=== PATIENT | female | born 1970 | race Caucasian/White ===

== ENCOUNTER 2024-10-19 17:52 | Emergency (ER) | payer BC, SELFPAY ==
--- OUTSIDE RECORDS SUMMARY | 2024-08-29 12:15 | XMS_ITS | Encounter Summary ---
Author Organization [facility] Address [address] [place] [address]. [place] [address] Care Team Providers Care Mechanical Engineering Technologist Name Role Phone Kun Cueva MD Primary Care Provider [phone] Kun Cueva MD Unavailable [phone] Vonda Mendoza APRN PERSONAL LINES APPRAISER Unavaila ble Kun Cueva MD Unavailable [phone] Heena Mederos PERSONAL LINES APPRAISER Unavailable [phone] Albert Mix PharmD Unavailable [phone] Albert Mix PharmD Unavailable [phone] Hector Vicente DO Unavailable [phone] Reason for Visit * Rehab Therapy Physical Therapy (Routine: Next available opening) - Pending Review Specialty Diagnoses / Procedures Referred By Austyn t Referred To Contact Diagnoses Primary osteoarthritis of right hip Greater trochanteric pain syndrome [place] [address] [address], [address] [address] Phone: tel: fax: Referral ID Status Reason Start Date Expiration Date V isits Requested Visits Authorized [id number] Pending Review 07/18/2024 07/18/2025 1 1 Encounter Details Date Type Department Care Team (Latest Contact Info) Description 08/29/2024 12:15 PM CDT Therapy Visit [facility] [address] [facility] [address] [place] [phone] Annabel Go, PT [address] [facility] [address] [place] [address] Primary osteoarthritis of right hip; Greater trochanteric pain syndrome of right lower extremity Social History Tobacco Use Types Packs/Day Years Used Date Smoking Tobacco: Never Passive Smoke Exposure: Yes Smokeless Tobacco: Never Alcohol Use Standard Drinks/Week Comments Yes 0 (1 standard drink = 0.6 oz pur e alcohol) Socially Social Connection and Isolation Panel [NHANES] A nswer Date Recorded Frequency of Communication with Friends and Fami ly Not on file 07/20/2024 How often do you get together with friends or re latives? Once a week 07/20/2024 Attends Buddhist Services Not on file 07/20 Active Member of Clubs or Organizations Not on f ile 07/20/2024 Attends Club or Organization Meetings Not on gertrude e 07/20/2024 Marital Status Not on file 07/20/2024 AUDIT-C Answer Date Recorded Frequency of Alcohol Consumption 2-4 times a mon 09/25/2018 Average Number of Drinks 1 or 2 019 Frequency of Binge Drinking Not on file 08/2018 PHQ-2 Answer Date Recorded PHQ-2 Score 2 07/25/2024 [facility] - Occupational Stress Questionnaire Answer Date Recorded Do you feel stress - tense, restless, nervous, or anxious, or unable to sleep at night because your mind is troubled all the time - these days? Very much 07/20/2024 Exercise Vital Sign Answer Date Recorde d On average, how many days pe r week do you engage in moderate to strenuous exercise (like a brisk walk)? 3 days 07/20/2024 On average, how many minutes do you engage in exercise at this level? 10 min 07/20/2024 Adolescent Education Answer Date Record ed Getting School Help Needed Not on file 01/15 Food Insecurity Answer Date Recorded Within the past 12 months, d id you worry that your food would run out before you got money to buy more? No 07/20/2024 Within the past 12 months, d id the food you bought just not last and you didn t have money to get more? No 07/20/2024 Housing Stability Answer Date Recorded Do you have housing? ([place] is defined as stable permanent housing and does not include staying outside in a car, in a tent, in an abandoned building, in an overnight snf, or couch-surfing.) Yes 07/20/2024 Are you worried about losing your housing? No 07/20/2024 Financial Resource Strain Answer Date R ecorded Within the past 12 months, h ave you or your family members you live with been unable to get utilities (heat, electricity) when it was really needed? No 07/20/2024 Transportation Needs Answer Date Record ed Within the past 12 months, h as lack of transportation kept you from medical appointments, getting your medicines, non-medical meetings or appointments, work, or from getting things that you need? No 07/20/2024 Interpersonal Safety Answer Date Record ed Do you feel physically and e motionally safe where you currently live? Yes 08/26/2024 Within the past 12 months, h ave you been hit, slapped, kicked or otherwise physically hurt by someone? No 08/26/2024 Within the past 12 months, h ave you been humiliated or emotionally abused in other ways by your partner or ex-partner? No 08/26/2024 Comments No Sex and Gender Information Value Date Recorded Sex Assigned at Female 05/26/2019 4:02 PM TERRITORY ACCOUNT MANAGER Legal Sex Female 5:12 AM TERRITORY ACCOUNT MANAGER Gender Identity Female 05/26/2019 4:02 PM TERRITORY ACCOUNT MANAGER Sexual Orientation Straight 05/26/2019 4: 02 PM TERRITORY ACCOUNT MANAGER documented as of this encounter Progress Notes * Annabel Go, PT - 10/07/2024 10:19 AM CDT DISCHARGE Reason for Discharge: pt has not been in clinic in over 30 days so is discharged from caseload Equipment Issued: Discharge Plan: Patient to continue home program. Referring Provider: Hector Vicente 08/29/24 0500 Appointment Info Signing clinician's name / credentials Annabel Go, PT Visits Used 1 Medical Diagnosis R Hip OA PT Tx Diagnosis R Hip OA Progress Note/Certification Onset of illness/injury or Date of Surgery 07/18/24 (date of referral) Therapy Frequency 1x/week Predicted Duration 90 days PT Goal 1 Goal Identifier HEP Goal Description Pt will demonstrate independence with their HEP in order to improve self management of condition Target Date 10/13/24 PT Goal 2 Goal Identifier stairs Goal Description Pt will be able to ambulate up stairs with a step through pattern and less reported pain of 1-2/10 4 out of 5 tries Target Date 11/26/24 PT Goal 3 Goal Identifier walking Goal Description Pt will be able to take first steps after sitting with less pain 3 out of 5 times per day Target Date 11/26/24 Subjective Report Subjective Report see eval Objective Measure 1 Objective Measure HIP ADL 50% on eval Details HIP HOS: 6 on eval Treatment Interventions (PT) Interventions Therapeutic Procedure/Exercise Therapeutic Procedure/Exercise Therapeutic Procedures: strength, endurance, ROM, flexibility minutes (63994) 24 Ther Proc 1 - Details stretches: sitting for work: piriformis and hip externla rotation holding 30 seconds X 1-3 reps Ther Proc 2 supine: piriformis above and below 90, supine quadratus lumborum holding all 30 secondsX 1-2 on R Patient Response/Progress pt is in agreement with POC Eval/Assessments PT Eval, Moderate Complexity Minutes ([id number]) 19 Education Learner/Method Patient Plan Plan for next session review stretches prn, hip/glute/core strengthening Total Session Time Timed Code Treatment Minutes 24 Total Treatment Time (sum of timed and untimed services) 43 * Annabel Go PT - 08/29/2024 12:15 PM CDT PHYSICAL THERAPY EVALUATION Type of Visit: Evaluation Fall Risk Screen: Have you fallen 2 or more times in the past year?: No Have you fallen and had an injury in the past year?: No Subjective Presenting condition or subjective complaint: Pt has right hip pain. She has had neck and back issues for several years. In 2022 she slipped on the ice and everything was much worse in pain levels. She went to a different pain doctor who did an MRI in which the OA was noted. The pain is more intense the past many months. Pain is constant and will vary thorughout the day. Prlonged positions of sitting and standing, getting out of cahirs and taking first couple steps, up stairs and toward the endof the day will increase symptoms. Pain is described as sharp, stabbing, ache. Switching positions frequently and laying in recliner will decrease symtpoms. Date of onset: 07/18/24 (date of referral) Relevant medical history: Depression; DVT (blood clot); Incontinence; Menopause; Mental Illness; Migraines or headaches; Neck injury; Pain at night or rest; Severe headaches Dates & types of surgery: Prior diagnostic imaging/testing results: MRI Prior therapy history for the same diagnosis, illness or injury: No Prior Level of Function Transfers: Ambulation: ADL: IADL: Living Environment Social support: With a significant other or spouse Type of home: House Stairs to enter the home: Yes 3 Is there a railing: No Ramp: No Stairs inside the home: Yes 12 Is there a railing: Yes Help at home: None Equipment owned: Employment: Yes sits for job currently, 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 Hobbies/Interests: Patient goals for therapy: Pain assessment: Objective HIP EVALUATION PAIN: Pain Level at Rest: 3/10 Pain Level with Use: 9/10 INTEGUMENTARY (edema, incisions): POSTURE: WFL GAIT: Weightbearing Status: Assistive Device(s): Gait Deviations: may progress to antalgic the further she walks BALANCE/PROPRIOCEPTION: able to stand on one foot 10+ seconds B with instability noted R>L, + Trendelenberg on R WEIGHTBEARING ALIGNMENT: NON-WEIGHTBEARING ALIGNMENT: ROM: Hip ROM(??) AROM in degrees Left Right Hip Flexion (0-120??) Hip Abduction (0-45??) Hip External Rotation (0-50??) Hip Internal Rotation (0-40??) Hip Extension (0-15??) PROM in degrees Left Right Hip Flexion (0-120??) WFL Pain at 100 degrees, WFL Hip Abduction (0-45??) Hip External Rotation (0-50??) WNL WNL Hip Internal Rotation (0-40??) WNL WNL Hip Extension (0-15??) WNL WNL STRENGTH: /5 Left Right Hip Flexion 5 5- Hip Extension 5- Glut Max 4+ Hip Abduction 5 5 Hip Adduction 5- 5- Hip External Rotation 5- 4+ Hip Internal Rotation 5- 5- Knee Extension 5 5 Knee flexion 5 5 LE FLEXIBILITY: WNL SPECIAL TESTS: OA Left (+/-) Right (+/-) Hip Scour + Test Cluster -Hip pain -Hip IR <15 -Hip Flex <115 + - + Test Cluster -Painful Hip IR ->50 years old -Morning Stiffness <60 min + + - Misc. Left (+/-) Right (+/-) Juliet's Wesley's Trendelenburg + SIJ Left (+/-) Right (+/-) SIJ Compression - SIJ Distraction - POSH Test Sacral Thrust Intra Articular Left (+/-) Right (+/-) NOE - FADIR + Passive Supine Rotation Test [facility] Test (SLR Against Resistance) DEXRIT DIRI Posterior Rim Impingement Lateral Rim Impingement Other FUNCTIONAL TESTS: PALPATION: pain over R psoas, all tissues surrounding greater trochanter, lower 1/3 of hip adductor, upper 1/2 of ITB, glutes and piriformis JOINT MOBILITY: Assessment & Plan CLINICAL IMPRESSIONS Medical Diagnosis: R Hip OA Treatment Diagnosis: R Hip OA Impression/Assessment: Patient is a 54 year old female with OA R hip complaints. The following significant findings have been identified: Pain, Decreased ROM/flexibility, Decreased strength, Impairedgait, Impaired muscle performance, and Decreased activity tolerance. These impairments interfere with their ability to perform prolonged positions, first couple steps after sitting, up stairs, more toward end of day as compared to previous level of function. Clinical Decision Making (Complexity): Clinical Presentation: Stable/Uncomplicated Clinical Presentation Rationale: based on medical and personal factors listed in PT evaluation Clinical Decision Making (Complexity): Moderate complexity PLAN OF CARE Treatment Interventions: Interventions: Gait Training, Manual Therapy, Neuromuscular Re-education, Therapeutic Activity, Therapeutic Exercise, Self-Care/Home Management Gasoline Plant Operator Goals PT Goal 1 Goal Identifier: HEP Goal Description: Pt will demonstrate independence with their HEP in order to improve self management of condition Target Date: 10/13/24 PT Goal 2 Goal Identifier: stairs Goal Description: Pt will be able to ambulate up stairs with a step through pattern and less reported pain of 1-2/10 4 out of 5 tries Target Date: 11/26/24 PT Goal 3 Goal Identifier: walking Goal Description: Pt will be able to take first steps after sitting with less pain 3 out of 5 timesper day Target Date: 11/26/24 Frequency of Treatment: 1x/week Duration of Treatment: 90 days Recommended Referrals to Other Professionals: Education Assessment: Learner/Method: Patient Risks and benefits of evaluation/treatment have been explained. Patient/Family/caregiver agrees with Plan of Care. Evaluation Time: PT Josue Trinidad Minutes ([id number]): 19 Signing Clinician: Annabel Go PT Cosigned by Hector Vicente DO at 08/29/2024 1:05 PM CDT Associated attestation - Hector Vicente DO - 08/29/2024 1:05 PM CDT Physician Attestation I agree with the information in this note. Hector Vicente DO documented in this encounter Plan of Treatment Upcoming Encounters Date Type Department Care Team (Late st Contact Info) Description 11/20/2024 3:00 PM CDT Virtual Visit [facility] [address] [phone] Harvey Corrales MD [address] [place] [address] 07/27/2025 3:10 PM CDT Office Visit [facility] [address] [place] [address] Kun Cueva MD [address] [place], [place] [id number] documented as of this encounter Visit Diagnoses Diagnosis Primary osteoarthritis of right hip Primary localized osteoarthrosis, pelvic region and thigh Greater trochanteric pain syndrome of right lower extremity documented in this encounter Additional Health Concerns Assessment Noted Time PHQ-9 Depression Total Score: 5 07/26/19 25 8:44 AM CDT documented as of this encounter Care Teams Mechanical Engineering Technologist Relationship Specialty Start Date End Date Kun Cueva MD [address] [place] [address] PCP - General Family Medicine 11/17/20 Kun Cueva MD [address] [place] [address] Assigned PCP 11/21/20 Vonda Mendoza APRN PERSONAL LINES APPRAISER [address] [place], [place] [id number], [place] [address] Nurse Practitioner Neurology 07/27/21 Kun Cueva MD [address] [place] [address] Referring Physician Family Medicine 07/27/21 Heena Mederos CNP [address] [place] [address] JULIANA MCGEE [address] Assigned Neuroscience Provider 05/17/23 Albert Mix, DejaD [address] [address] Pharmacist Pharmacist 07/07/24 Albert Mix, DejaD [address] [address] Assigned MTM Pharmacist 07/13/24 [place] [address] [address], [address] [address] Assigned Musculoskeletal Provider 08/13/24 documented as of this encounter
--- OUTSIDE RECORDS SUMMARY | 2024-09-10 15:30 | XMS_ITS | Encounter Summary ---
Author Organization [facility] Address [address] [place], [place] [address]. [place] [address] Care Team Providers Care Project Lead Name Role Phone Kun Cueva MD Primary Care Provider Kun Cueva MD Unavailable [phone] Vonda Mendoza APRN TOOL SMITH Unavaila ble Kun Cueva MD Unavailable [phone] Heena Mederos TOOL SMITH Unavailable [phone] Albert Mix PharmD Unavailable [phone] Albert Mix PharmD Unavailable [phone] Hector Vicente DO Unavailable [phone] Reason for Visit * Reason Comments Pain Encounter Details Date Type Department Care Team (Latest Contact Info) Description 09/10/2024 3:30 PM CDT Office Visit [facility] [address] [facility] [address] [place] [phone] Kun Cueva MD [address] [place], [place] [phone] Hossein Wilder MD [address] [place], [place] [id number] Right lumbar radiculopathy Social History Tobacco Use Types Packs/Day Years Used Date Smoking Tobacco: Never Passive Smoke Exposure: Yes Smokeless Tobacco: Never Tobacco Cessation:Counseling Given: Not Answered Alcohol Use Standard Drinks/Week Comments Yes 0 (1 standard drink = 0.6 oz pur e alcohol) Socially Social Connection and Isolation Panel [NHANES] A nswer Date Recorded Frequency of Communication with Friends and Fami ly Not on file 07/20/2024 How often do you get together with friends or re latives? Once a week 07/20/2024 Attends Congregation Services Not on file 07/20 Active Member of Clubs or Organizations Not on f ile 07/20/2024 Attends Club or Organization Meetings Not on gertrude e 07/20/2024 Marital Status Not on file 07/20/2024 AUDIT-C Answer Date Recorded Frequency of Alcohol Consumption 2-4 times a sun09/25/2018 Average Number of Drinks 1 or 2 019 Frequency of Binge Drinking Not on file 08/2018 PHQ-2 Answer Date Recorded PHQ-2 Score 2 07/25/2024 [facility] - Occupational Stress [...] Answer Date Recorded Do you have housing? (Housin g is defined as stable permanent housing and does not include staying outside in a car, in a tent, in an abandoned building, in an overnight fci, or couch-surfing.) Yes 07/20/2024 Are you worried [...] Sex Assigned at Female 05/26/2019 4:02 PM SECURITY PROGRAM MANAGER Legal Sex Female 5:12 AM SECURITY PROGRAM MANAGER Gender Identity Female 05/26/2019 4:02 PM SECURITY PROGRAM MANAGER Sexual Orientation Straight 05/26/2019 4: 02 PM SECURITY PROGRAM MANAGER documented as of this encounter Last Filed Vital Signs Vital Sign Reading Time Taken Comments Blood Pressure 128/74 09/10/2024 3:13 PM CDT Pulse 62 09/10/2024 3:13 PM CDT Temperature - - Respiratory Rate - - Oxygen Saturation 100% 09/10/2024 3:13 PM CDT Inhaled Oxygen Concentration - - Weight - - Height - - Body Mass Index - - documented in this encounter Patient Instructions * Patient Instructions* Hossein Wilder MD - 09/10/2024 3:30 PM CDT PLAN: Dr. Wilder to communicate with Dr. Beltran regarding radiofrequency ablation for your neck, whetheryou need updated MRIs, and to do the medial branch block sequence. Continue the Lyrica 50 mg 3 times a day, with your lamotrigine and duloxetine. Continue CBD and THC products as able. Follow-up return visit with Dr. Wilder in 4 to 5 months documented in this encounter Progress Notes * AntonioAnastasia velez - 09/10/2024 3:30 PM CDT Patient presents to the clinic today for a visit with HOSSEIN WILDER MD regarding Pain Management. Notes Anastasia Alvarez [facility] Clinical Copy Center Associate * Hossein Wilder MD - 09/10/2024 3:30 PM CDT [facility] Follow-up Date of visit: 09/10/2024 Chief complaint: Chief Complaint Patient presents with Pain Seen in follow-up from initial evaluation, history of cervical degenerative disease. Reviewing the record did see Dr. Beltran 07/03 having a right L4 transforaminal epidural steroid injection. Seen in sports medicine later in June, managing hip pain, greater trochanteric pain, placed on nonsteroidals, physical therapy Reviews today the lumbar steroid injection was quite helpful. Pleased with the results. Working with orthopedics now starting physical therapy for her hip. Would now like to address her neck pain. She will with a chiropractor. Reviews previously had radiofrequency ablation through Dr. Christina who had been at the [facility] then going to [facility] was about the CD 4 through 7 level. Found it was very helpful, starting to return. Would like to stay with this clinic. Last imaging several years ago. Wonders if she needs to go through the medial branch block process. Is taking Lyrica 50 mg 3 times a day which she thinks in combination with a lumbar steroid injection helping with radicular symptoms. Lamotrigine 200 mg daily helps with her headaches also anxiety and depression. Continue duloxetine 1 and 20 mg daily. Has used some THC and CBD products [id number] helps some with pain and sleep. Medications: Current Outpatient Medications Medication Sig Dispense Refill acetaminophen (TYLENOL) 325 MG tablet Take 650 mg by mouth every 4 hours as needed. aspirin (ASA) 325 MG EC tablet Take 325 mg by mouth daily calcium acetate (PHOSLO) 667 MG CAPS capsule Take 667 mg by mouth 3 times daily (with meals). DULoxetine (CYMBALTA) 60 MG capsule Take 2 capsules (120 mg) by mouth daily. 180 capsule 2 escitalopram (LEXAPRO) 10 MG tablet Take 1 tablet (10 mg) by mouth daily. 90 tablet 1 famotidine (PEPCID) 40 MG tablet Take 1 tablet (40 mg) by mouth 2 times daily. 180 tablet 0 hydrOXYzine (ATARAX) 25 MG tablet Take 1 tablet (25 mg) by mouth 3 times daily as needed for anxiety 30 tablet 2 lamoTRIgine (LAMICTAL) 100 MG tablet Take 1 tablet (100 mg) by mouth 2 times daily. 180 tablet 0 montelukast (SINGULAIR) 10 MG tablet Take 1 tablet (10 mg) by mouth at bedtime. 90 tablet 3 multivitamin w/minerals (MULTI-VITAMIN) tablet Take 1 tablet by mouth daily. pregabalin (LYRICA) 50 MG capsule Take 1 capsule (50 mg) by mouth 3 times daily. 90 capsule 2 propranolol ER (INDERAL LA) 80 MG 24 hr capsule Take 1 capsule by mouth once daily 90 capsule 0 tirzepatide-Weight Management (ZEPBOUND) 12.5 MG/0.5ML prefilled pen Inject 0.5 mLs (12.5 mg) subcutaneously every 7 days. 2 mL 1 traZODone (DESYREL) 100 MG tablet Take 1 tablet (100 mg) by mouth at bedtime. 90 tablet 3 Physical Exam: Blood pressure 128/74, pulse 62, SpO2 100%, not currently . Alert, clear sensorium, no respiratory distress, no pain behavior. Increased tone in trapezius, tender to palpation in her posterior paracervicals, occipital area. Pain worse with extension. Does not radiate in her arms. Good deltoid strength and hand strength. Negative Jhonatan's. No bowel or bladder changes. Assessment: History of cervical degenerative disease, previously had cervical radiofrequency ablation helping she feels for a few years. Would like to repeat the process. Did not have updated imaging maybe a few years old. Feels benefit from her lumbar radiculopathy with steroid injection and the Lyrica. Presently addressing hip pain through physical therapy. Plan: Will clarify with Dr. Beltran if need to update imaging and start with medial branch blocks versus going to radiofrequency ablation. She will continue to physical therapy for her hip. Continue the Lyrica lamotrigine and duloxetine. Will follow-up with me in several months. Total time 31 The longitudinal plan of care for the diagnosis(es)/condition(s) as documented were addressed during this visit. Due to the added complexity in care, I will continue to support Sarah in the subsequent management and with ongoing continuity of care. minutes spent on the date of encounter doing chartreview, history, and exam documentation and further activities as noted above. Hossein Wilder MD [facility] Pain documented in this encounter Plan of Treatment Upcoming Encounters Date Type Department Care Team (Late st Contact Info) Description 11/20/2024 3:00 PM CDT Virtual Visit [facility] [address] [phone] Harvey Corrales MD [address] [place] [address] 07/27/2025 3:10 PM CDT Office Visit [facility] [address] [place] [address] Kun Cueva MD [address] [place] [address] documented as of this encounter Visit Diagnoses Diagnosis Right lumbar radiculopathy Thoracic or lumbosacral neuritis or radiculitis, unspecified documented in this encounter Additional Health Concerns Assessment Noted Time PHQ-9 Depression Total Score: 5 07/26/19 25 8:44 AM CDT documented as of this encounter Care Teams Project Lead Relationship Specialty Start Date End Date Kun Cueva MD [address] [place] [address] PCP - General Family Medicine 11/17/20 Knu Cueva MD [address] [place] [address] Assigned PCP 11/21/20 Vonda Mendoza APRN TOOL SMITH [address] [id number] [place] [address] Nurse Practitioner Neurology 07/27/21 Kun Cueva MD [address] [facility] [address] [place] [address] Referring Physician Family Medicine 07/27/21 Heena Mederos, NIDHI [address] [place] [address] [place] [address] Assigned Neuroscience Provider 05/17/23 Albert Mix, PharmD [address] [address] Pharmacist Pharmacist 07/07/24 Albert Mix, DejaD [address] [address] Assigned MTM Pharmacist 07/13/24 [place] [address] [address], [address] [address] Assigned Musculoskeletal Provider 08/13/24 documented as of this encounter
[2024-10-19 17:59] VITALS: BP 122/83; PULSE 72; RESP 16; TEMP 36.8; O2SAT 99
--- NOTE | 2024-10-19 18:56 | CRLHL7_ITS ---
For Patients: As a result of the Cures Act, medical imaging exams and procedure reports are released immediately into your electronic medical record. You may view this report before your referring provider. If you have questions, please contact your health care provider. INDICATION: Fall, hit left eyebrow, has laceration. COMPARISON: None. TECHNIQUE: CT of the head without IV contrast. Coronal and sagittal reconstructions. FINDINGS: Brain: No intracranial hemorrhage, abnormal extra-axial fluid collection, or evidence of acute infarct. No mass effect or midline shift. Normal caliber ventricular system. Skull base and calvarium: The visualized paranasal sinuses and mastoid air cells are clear. The visualized orbits are grossly unremarkable. No acute fracture identified. Soft tissues: There is a focus of soft tissue gas in the left periorbital region likely related to laceration. No significant soft tissue swelling. IMPRESSION: 1. No acute intracranial findings. 2. Focus of soft tissue gas in the left periorbital region likely related to laceration. Please note that all CT scans at this facility use dose modulation, iterative reconstruction, and/or weight-based dosing when appropriate to reduce radiation dose to as low as reasonably achievable. Dictated by Louisa Lazo MD @ 10/19/2024 7:30:51 PM (Electronically Signed)
--- NOTE | 2024-10-19 18:57 | ED_ITS ---
HPI - General Adult General Chief complaint: Fall/Minor Trauma Stated complaint: Fell on Left Eyebrow Time Seen by Provider: 10/19/24 18:51 Source: patient Mode of arrival: ambulatory Limitations: no limitations History of Present Illness HPI narrative: 54-year-old female presenting today after a fall. She tripped over concrete and fell forward. She sustained a laceration over the left eyebrow. She did not lose consciousness. She denies any neck pain. She states that she has a very mild headache that she feels is coming on, she feels a fullness over the left eyebrow and eye area. She said that her vision was blurry on that side for a little bit of time, this has passed. She denies any other focal neurologic deficits, no word-finding difficulty. No ringing in her ears. No confusion. Patient is not on a blood thinner. This occurred approximately 1 hour ago. Patient has a history of blood clots, has factor 5 Leiden deficiency, takes daily aspirin. Related Data Allergies Allergy/AdvReac Type Severity Reaction Status Date / Time No Known Drug Allergies Allergy Verified 10/19/24 18:05 Review of Systems Status of ROS: Reports: 10 or more systems reviewed and unremarkable except as noted in History and below Exam Narrative: Exam Narrative: Well-nourished well-developed patient in no acute distress. Alert and oriented x3. Answers questions appropriately. Mood and affect are appropriate. Thoughts are goal oriented and rational. No tangential or magical thinking noted. Patient speaks in full sentences without needing to catch her breath. GCS is 15. Patient is speaking and breathing without difficulty. HEENT: Normocephalic. Pupils are equally round reactive to light. Extraocular muscles are intact. Conjunctivae are moist without any icterus noted. Moist mucous membranes. Posterior pharynx is normal. No trauma noted to the inside of the mouth. Neck is soft without pain. Full range of motion at the neck without pain. No tenderness to palpation of the cervical spine. Patient has a small laceration in the left eyebrow, the laceration penetrates into the dermis but does not penetrate through into the subcutaneous tissue. No gaping of the skin. Lungs: Patient takes deep breaths without any discomfort. Extremities: Bilateral lower extremities are without edema. Superficial abrasion of the left knee. Skin: Well perfused without any obvious rashes. Const: Vital Signs, click to edit/add: Vital Signs - 24 hr 10/19/24 17:59 Temperature 98.2 F Pulse Rate [Pulse Oximeter] 72 Respiratory Rate 16 Blood Pressure [Ri ght Upper Arm] 122/83 Pulse Oximetry 99 Oxygen Delivery Me thod Room Air Course Course ED Course: Given her headache, sensation of fullness across the face some blurry vision we did proceed with a head CT. This was unremarkable. Eyebrow was cleaned in the usual sterile manner and Dermabond was placed over the laceration. Knee was cleaned and dressed. Vital Signs Vital signs: Initial Vital Signs Temperature 98.2 F 10/19/24 17:59 Temperature Source Temporal Artery Scan 10/19/24 17:59 Pulse Rate 72 10/19/24 17:59 Pulse Rhythm Regular 10/19/24 17:59 Respiratory Rate 16 10/19/24 17:59 Blood Pressure 122/83 10/19/24 17:59 Blood Pressure Mean 96 10/19/24 17:59 Blood Pressure Position Sitting 10/19/24 17:59 Pulse Oximetry 99 10/19/24 17:59 Oxygen Delivery Method Room Air 10/19/24 17:59 Vital Signs Temperature 98.2 F 10/19/24 17:59 Pulse Rate 72 10/19/24 17:59 Respiratory Rate 16 10/19/24 17:59 Blood Pressure 122/83 10/19/24 17:59 Pulse Oximetry 99 10/19/24 17:59 Oxygen Delivery Method Room Air 10/19/24 17:59 Temperature 98.2 F 10/19/24 17:59 Pulse Rate 72 10/19/24 17:59 Respiratory Rate 16 10/19/24 17:59 Blood Pressure 122/83 10/19/24 17:59 Pulse Oximetry 99 10/19/24 17:59 Oxygen Delivery Method Room Air 10/19/24 17:59 Medical Decision Making MDM Narrative Medical decision making narrative: 54-year-old female status post fall. No evidence of intracranial pathology. Imaging Data CT scan - head: Attestation: I have reviewed the pertinent imaging results. Radiologist's impression: TECHNIQUE: CT of the head without IV contrast. Coronal and sagittal reconstructions. FINDINGS: Brain: No intracranial hemorrhage, abnormal extra-axial fluid collection, or evidence of acute infarct. No mass effect or midline shift. Normal caliber ventricular system. Skull base and calvarium: The visualized paranasal sinuses and mastoid air cells are clear. The visualized orbits are grossly unremarkable. No acute fracture identified. Soft tissues: There is a focus of soft tissue gas in the left periorbital region likely related to laceration. No significant soft tissue swelling. IMPRESSION: 1. No acute intracranial findings. 2. Focus of soft tissue gas in the left periorbital region likely related to laceration. Discharge Plan Discharge Clinical Impression: Laceration, Abrasion of knee Patient Disposition: Home, Self-Care Condition: Stable Instructions: Abrasion (ED) Additional Instructions: Keep laceration of eyebrow and wound of the knee clean and dry. You can shower like you normally would. The glue over the eyebrow will eventually fall off on its own, do not pull off. Watch for signs of infection which include redness that starts to spread, if this occurs see your doctor right away. Stand Alone Forms: [facility] [place] Info Instructions
--- OUTSIDE RECORDS SUMMARY | 2024-10-19 19:35 | XMS_ITS | Encounter Summary ---
Author Organization [facility] Address [address] [place] [address] [place] [address] Care Team Providers Care Scrub Nurse Name Role Phone Kun Cueva MD Primary Care Provider Kun Cueva MD Unavailable [phone] Vonda Mendoza APRN UTILITY WORKER FILM PROCESSING Unavaila ble Kun Cueva MD Unavailable [phone] Heena Mederos UTILITY WORKER FILM PROCESSING Unavailable [phone] Albert Mix PharmD Unavailable [phone] Albert Mix PharmD Unavailable [phone] Hector Vicente DO Unavailable [phone] Encounter Details Date Type Department Care Team (Late st Contact Info) Description 07/30/[address] [facility] [address] [place] [phone] Kun Cueva MD [address] [place] [address] Social History Tobacco Use Types Packs/Day Years [...] re latives? Once a week 07/20/2024 Attends Confucianist Services Not on file 07/20 Active Member [...] Answer Date Recorded PHQ-2 Score 2 07/25/2024 [facility] of Occupat ional Health - Occupational Stress [...] in an abandoned building, in an overnight fdc, or couch-surfing.) Yes 07/20/2024 Are you worried [...] motionally safe where you currently live? Yes 07/23/2023 Within the past 12 months, h ave you been hit, slapped, kicked or otherwise physically hurt by someone? No 07/23/2023 Within the past 12 months, h ave you been humiliated or emotionally abused in other ways by your partner or ex-partner? No 07/23/2023 Comments No Sex and Gender Information Value Date Recorded Sex Assigned at Female 05/26/2019 4:02 PM ORGANIZATIONAL EFFECTIVENESS CONSULTANT Legal Sex Female 5:12 AM ORGANIZATIONAL EFFECTIVENESS CONSULTANT Gender Identity Female 05/26/2019 4:02 PM ORGANIZATIONAL EFFECTIVENESS CONSULTANT Sexual Orientation Straight 05/26/2019 4: 02 PM ORGANIZATIONAL EFFECTIVENESS CONSULTANT documented as of this encounter Plan of Treatment Upcoming Encounters Date Type Department Care Team (Late st Contact Info) Description 11/20/2024 3:00 PM CDT Virtual Visit [facility] [address] [address] Harvey Corrales MD [address] [place] [address] 07/27/2025 3:10 PM CDT Office Visit [facility] [address] [place] [address] Kun Cueva MD [address] [place] [address] documented as of this encounter Visit Diagnoses Not on filedocumented in this encounter Additional Health Concerns Assessment Noted Time PHQ-9 Depression Total Score: 5 07/26/19 25 8:44 AM CDT documented as of this encounter Care Teams Scrub Nurse Relationship Specialty Start Date End Date Kun Cueva MD [address] [place] [address] PCP - General Family Medicine 11/17/20 uKn Cueva MD [address] [place] [address] Assigned PCP 11/21/20 Vonda Mendoza APRN UTILITY WORKER FILM PROCESSING [address] [place], [place] [id number], [place] [address] Nurse Practitioner Neurology 07/27/21 Kun Cueva MD [address] [facility] [address] [place] [address] Referring Physician Family Medicine 07/27/21 Heena Mederos CNP [address] [place] [address] [place] [id number] Assigned Neuroscience Provider 05/17/23 Albert Mix, PharmD [address] [address] Pharmacist Pharmacist 07/07/24 Albert Mix PharmD [address] [address] Assigned MTM Pharmacist 07/13/24 [place] [id number] ELFEGO PURCELL, [address] [address] Assigned Musculoskeletal Provider 08/13/24 documented as of this encounter
--- OUTSIDE RECORDS SUMMARY | 2024-10-19 19:35 | XMS_ITS | Encounter Summary ---
Author Organization [facility] Address [facility] [place] [address] Care Team Providers Care Gas Transfer Operator Name Role Phone Kun Cueva MD Primary Care Provider [phone] Kun Cueva MD Unavailable [phone] Vonda Mendoza APRN BUMPER MACHINE OPERATOR Unavaila ble Kun Cueva MD Unavailable [phone] Heena Mederos BUMPER MACHINE OPERATOR Unavailable [phone] Albert Mix PharmD Unavailable [phone] Albert Mix PharmD Unavailable [phone] Hector Vicente DO Unavailable [phone] Reason for Referral * Consultation (Routine: Next available opening) - Pending Review Specialty Diagnoses / Procedures Referred By Austyn t Referred To Contact Diagnoses Hip pain, left Chico Barreto MD [address] [place] [address] Phone: tel: fax: Referral ID Status Reason Start Date Expiration Date V isits Requested Visits Authorized [id number] Pending Review 07/15/2024 07/15/2025 1 1 Question Answer Consult Type: Hip Hip Location: Other Type: Per Protocol Scheduling Instructions: [facility] Orthopedic Mannequin Mold Maker will call you to coordinate your care as prescribed by your provider. A automobile rental representative will call you within 2 business days to help you schedule your appointment, or you may contact the Mannequin Mold Maker Nurses Assistant at: . Comments Please be aware that coverage of these services is subject to the terms and limitations of your health insurance plan. Call member services at your health plan with any benefit or coverage questions. [facility] Mannequin Mold Maker will call you to coordinate your care as prescribed by your provider. A automobile rental representative will call you within 2 business days to help you schedule your appointment, or you may contact the Mannequin Mold Maker Nurses Assistant at: . Encounter Details Date Type Department Care Team (Late st Contact Info) Description 07/14/2024 MyC Medical Advice [facility] [address] [facility] [address] [place] [address] Chico Barreto MD [address] [place] [address] Hip pain, left (Primary Dx) Social History Tobacco Use Types Packs/Day Years Used Date Smoking Tobacco: Never Passive Smoke Exposure: Yes Smokeless Tobacco: Never Alcohol Use Standard Drinks/Week Comments Yes 0 (1 standard drink = 0.6 oz pur e alcohol) socially Social Connection and Isolation Panel [NHANES] A nswer Date Recorded Frequency of Communication with Friends and Fami ly Not on file 07/17/2023 How often do you get together with friends or re latives? Once a week 07/17/2023 Attends Voodoo Services Not on file 07/16 Active Member of Clubs or Organizations Not on f ile 07/17/2023 Attends Club or Organization Meetings Not on gertrude e 07/17/2023 Marital Status Not on file 07/17/2023 AUDIT-C Answer Date Recorded Frequency of Alcohol Consumption 2-4 times a sun09/25/2018 Average Number of Drinks 1 or 2 019 Frequency of Binge Drinking Not on file 08/2018 PHQ-2 Answer Date Recorded PHQ-2 Score 2 05/09/2024 [facility] [place] of Occupat ional Health - Occupational Stress Questionnaire Answer Date Recorded Do you feel stress - tense, restless, nervous, or anxious, or unable to sleep at night because your mind is troubled all the time - these days? Very much 07/17/2023 Exercise Vital Sign Answer Date Recorde d On average, how many days pe r week do you engage in moderate to strenuous exercise (like a brisk walk)? 2 days 07/17/2023 On average, how many minutes do you engage in exercise at this level? 30 min 07/17/2023 Adolescent Education Answer Date Record ed Getting School Help Needed Not on file 01/15 Food Insecurity Answer Date Recorded Within the past 12 months, d id you worry that your food would run out before you got money to buy more? No 07/17/2023 Within the past 12 months, d id the food you bought just not last and you didn t have money to get more? No 07/17/2023 Housing Stability Answer Date Recorded Do you have housing? (Housin g is defined as stable permanent housing and does not include staying outside in a car, in a tent, in an abandoned building, in an overnight [place] [facility], or couch-surfing.) Yes 07/17/2023 Are you worried about losing your housing? No 07/17/2023 Financial Resource Strain Answer Date R ecorded Within the past 12 months, h ave you or your family members you live with been unable to get utilities (heat, electricity) when it was really needed? No 07/17/2023 Transportation Needs Answer Date Record ed Within the past 12 months, h as lack of transportation kept you from medical appointments, getting your medicines, non-medical meetings or appointments, work, or from getting things that you need? No 07/17/2023 Interpersonal Safety Answer Date Record ed Do [...] Sex Assigned at Female 05/26/2019 4:02 PM EXHIBIT TECHNICIAN Legal Sex Female 5:12 AM EXHIBIT TECHNICIAN Gender Identity Female 05/26/2019 4:02 PM EXHIBIT TECHNICIAN Sexual Orientation Straight 05/26/2019 4: 02 PM EXHIBIT TECHNICIAN documented as of this encounter Plan of Treatment Upcoming Encounters Date Type Department Care Team (Late st Contact Info) Description 11/20/2024 3:00 PM CDT Virtual Visit [facility] [place] [address] [facility] [address] [place] [address] Harvey Corrales MD [address] [facility] [address] [place] [address] 07/27/2025 3:10 PM CDT Office Visit [facility] [address] [place] [address] Kun Cueva MD [address] [place], [place] [id number] Scheduled Referrals Name Type Priority Associated Diagnoses Orde r Schedule Orthopedic Mannequin Mold Maker Referral Referral Routine: Next available opening Hip pain, left Expected: 07/15/2024 (Approximate), Expires: 07/15/2025 documented as of this encounter Visit Diagnoses Diagnosis Hip pain, left- Primary Pain in joint, pelvic region and thigh documented in this encounter Additional Health Concerns Assessment Noted Time PHQ-9 Depression Total Score: 7 05/09/19 25 7:52 AM EXHIBIT TECHNICIAN documented as of this encounter Care Teams Gas Transfer Operator Relationship Specialty Start Date End Date Kun Cueva MD [address] [place] [address] PCP - General Family Medicine 11/17/20 Kun Cueva MD [address] [place] [address] Assigned PCP 11/21/20 Vonda Mendoza APRN BUMPER MACHINE OPERATOR [address] [place] [address] [id number] [place] [address] Nurse Practitioner Neurology 07/27/21 Kun Cueva MD [address] [place] [address] Referring Physician Family Medicine 07/27/21 Heena Mederos CNP [address] [place] [address] [place] [address] Assigned Neuroscience Provider 05/17/23 Albert Mix, PharmD [address] [address] Pharmacist Pharmacist 07/07/24 Albert Mix, Will [address] [address] Assigned MTM Pharmacist 07/13/24 [place] [address] ELFEGO PURCELL, [address] [address] Assigned Musculoskeletal Provider 08/13/24 documented as of this encounter
--- OUTSIDE RECORDS SUMMARY | 2024-10-19 19:35 | XMS_ITS | Encounter Summary ---
Author Organization [facility] Address [address] [place], [place] [address]e. [place] [address] Care Team Providers Care Diamond Grader Name Role Phone Kun Cueva MD Primary Care Provider [phone] Kun Cueva MD Unavailable [phone] Vonda Mendoza APRN PAPIER MACHE MOLDER Unavaila ble Kun Cueva MD Unavailable [phone] Heena Mederos PAPIER MACHE MOLDER Unavailable [phone] Albert Mxi PharmD Unavailable [phone] Albert Mix PharmD Unavailable [phone] Hector Vicente DO Unavailable [phone] Encounter Details Date Type Department Care Team (Late st Contact Info) Description 08/04/2024 MyC Medical Advice [facility] [address] [place] [phone] Harvey Corrales MD [address] [place] [address] Social History Tobacco Use Types Packs/Day Years [...] re latives? Once a week 07/20/2024 Attends Anabaptism Services Not on file 07/20 Active Member [...] Answer Date Recorded PHQ-2 Score 2 07/25/2024 [facility] of Occupat ional Health - Occupational Stress [...] in an abandoned building, in an overnight jail, or couch-surfing.) Yes 07/20/2024 Are you worried [...] Sex Assigned at Female 05/26/2019 4:[address] CUTTER Legal Sex Female 5:[address]UTTER Gender Identity Female 05/26/2019 4:[address] CUTTER Sexual Orientation Straight 05/26/2019 4: [address] CUTTER documented as of this encounter Plan of Treatment Upcoming Encounters Date Type Department Care Team (Late st Contact Info) Description 11/20/2024 3:00 PM CDT Virtual Visit [facility] [address] [address] Harvey Corrales MD [address] [place] [address] 07/27/2025 3:10 PM CDT Office Visit [facility] [address] [place] [address] Kun Cueva MD [address] [place], [place] [id number] documented as of this encounter Visit Diagnoses Not on filedocumented in this encounter Additional Health Concerns Assessment Noted Time PHQ-9 Depression Total Score: 5 07/26/19 25 8:44 AM CDT documented as of this encounter Care Teams Diamond Grader Relationship Specialty Start Date End Date Kun Cueva MD [address] [place] [address] PCP - General Family Medicine 11/17/20 Kun Cueva MD [address] [place] [address] Assigned PCP 11/21/20 Vonda Mendoza APRN PAPIER MACHE MOLDER [address] [place], [place] [address] [address] Nurse Practitioner Neurology 07/27/21 Kun Cueva MD [address] [place] [address] Referring Physician Family Medicine 07/27/21 Heena Mederos CNP [address] [place] [address] [place] [address] Assigned Neuroscience Provider 05/17/23 Albert Mix, DejaD [address] [address] Pharmacist Pharmacist 07/07/24 Albert Mix, Will [address] [address] Assigned MTM Pharmacist 07/13/24 [place] [address] ELFEGO PURCELL, [address] [address] Assigned Musculoskeletal Provider 08/13/24 documented as of this encounter
--- OUTSIDE RECORDS SUMMARY | 2024-10-19 19:36 | XMS_ITS | Encounter Summary ---
Author Organization [facility] Address [address] [place], [place] [address]. [place] [address] Care Team Providers Care Sales And Operations Trainee Name Role Phone Kun Cueva MD Primary Care Provider [phone] Kun Cueva MD Unavailable [phone] Vonda Mendoza APRN TUFTING MACHINE OPERATOR SINGLE NEEDLE Unavaila ble Kun Cueva MD Unavailable [phone] Heena Mederos TUFTING MACHINE OPERATOR SINGLE NEEDLE Unavailable [phone] Albert Mix PharmD Unavailable [phone] Albert Mix PharmD Unavailable [phone] Hector Vicente DO Unavailable [phone] Encounter Details Date Type Department Care Team (Late st Contact Info) Description 08/04/2024 MyC Medical Advice [facility] [address] [place] [address] [place] [address] [facility] , [address] [address] Social History Tobacco Use Types Packs/Day Years [...] re latives? Once a week 07/20/2024 Attends Yazidism Services Not on file 07/20 Active Member [...] Answer Date Recorded PHQ-2 Score 2 07/25/2024 [facility] of Occupat ional Health - Occupational Stress [...] in an abandoned building, in an overnight long-term, or couch-surfing.) Yes 07/20/2024 Are you worried [...] Sex Assigned at Female 05/26/2019 4:02 PM DIRECTOR SPECIALTY Legal Sex Female 5:12 AM DIRECTOR SPECIALTY Gender Identity Female 05/26/2019 4:02 PM DIRECTOR SPECIALTY Sexual Orientation Straight 05/26/2019 4: 02 PM DIRECTOR SPECIALTY documented as of this encounter Plan of Treatment Upcoming Encounters Date Type Department Care Team (Late st Contact Info) Description 11/20/2024 3:00 PM CDT Virtual Visit [facility] [address] [phone] Harvey Corrales MD [address] [place] [address] 07/27/2025 3:10 PM CDT Office Visit [facility] [address] [place] [address] Kun Cueva MD [address] [place], [place] [phone] documented as of this encounter Visit Diagnoses Not on filedocumented in this encounter Additional Health Concerns Assessment Noted Time PHQ-9 Depression Total Score: 5 07/26/19 25 8:44 AM CDT documented as of this encounter Care Teams Sales And Operations Trainee Relationship Specialty Start Date End Date Kun Cueva MD [address] [place] [address] PCP - General Family Medicine 11/17/20 Kun Cueva MD [address] [place] [address] Assigned PCP 11/21/20 Vonda Mendoza APRN TUFTING MACHINE OPERATOR SINGLE NEEDLE [address] [place] [address] [address] Nurse Practitioner Neurology 07/27/21 Kun Cueva MD [address] [place] [address] Referring Physician Family Medicine 07/27/21 Heena Mederos CNP [address] [place] [address] [place] [address] Assigned Neuroscience Provider 05/17/23 Albert Mix, PharmD [address] [address] Pharmacist Pharmacist 07/07/24 Albert Mix, Will [address] [address] Assigned MTM Pharmacist 07/13/24 [place] [address] ELFEOG PURCELL, [address] [address] Assigned Musculoskeletal Provider 08/13/24 documented as of this encounter
--- OUTSIDE RECORDS SUMMARY | 2024-10-19 19:36 | XMS_ITS | Encounter Summary ---
Author Organization [facility] Address [address] [place], [place] [address]. [place] [address] Care Team Providers Care Branch Associate Teller Name Role Phone Kun Cueva MD Primary Care Provider [phone] Kun Cueva MD Unavailable [phone] Vonda Mendoza APRN ENTEROSTOMAL NURSE Unavaila ble Kun Cueva MD Unavailable [phone] Heena Mederos ENTEROSTOMAL NURSE Unavailable [phone] Albert Mix PharmD Unavailable [phone] Albert Mix PharmD Unavailable [phone] Hector Vicente DO Unavailable [phone] Reason for Visit * Reason Onset Date Comments Refill Request 09/17/2024 Encounter Details Date Type Department Care Team (Late st Contact Info) Description 09/17/2024 Ben Valdovinos [facility] [address] [place] [phone] Harvey Corrales MD [address] [place] [id number] Refill Request Social History Tobacco Use Types Packs/Day Years [...] re latives? Once a week 07/20/2024 Attends [employer] Not on file 07/20 Active Member [...] Answer Date Recorded PHQ-2 Score 2 07/25/2024 [facility] - Occupational [...] in an abandoned building, in an overnight half-way, or couch-surfing.) Yes 07/20/2024 Are you worried [...] Sex Assigned at Female 05/26/2019 4:02 PM ELECTRIC WELDER Legal Sex Female 5:12 AM ELECTRIC WELDER Gender Identity Female 05/26/2019 4:02 PM ELECTRIC WELDER Sexual Orientation Straight 05/26/2019 4: 02 PM ELECTRIC WELDER documented as of this encounter Plan of Treatment Upcoming Encounters Date Type Department Care Team (Late st Contact Info) Description 11/20/2024 3:00 PM CDT Virtual Visit [facility] [address] [phone] Harvey Corrales MD [address] [place] [address] 07/27/2025 3:10 PM CDT Office Visit [facility] [address] [place] [phone] Kun Cueva MD [address] [place], [place] [id number] documented as of this encounter Visit Diagnoses Diagnosis Dyspepsia Dyspepsia and other specified disorders of function of stomach documented in this encounter Additional Health Concerns Assessment Noted Time PHQ-9 Depression Total Score: 5 07/26/19 25 8:44 AM CDT documented as of this encounter Care Teams Branch Associate Teller Relationship Specialty Start Date End Date Kun Cueva MD [address] [place] [address] PCP - General Family Medicine 11/17/20 Kun Cueva MD [address] [place] [address] Assigned PCP 11/21/20 Vonda Mendoza APRN ENTEROSTOMAL NURSE [address] [place] [address] Nurse Practitioner Neurology 07/27/21 Kun Cueva MD [address] [place] [address] Referring Physician Family Medicine 07/27/21 Heena Mederos CNP [address] [place] [address] JULIANA MCGEE [address] Assigned Neuroscience Provider 05/17/23 Albert Mix, Will [address] [address] Pharmacist Pharmacist 07/07/24 Albert Mix PharmD [address] [address] Assigned MTM Pharmacist 07/13/24 [place] [address] ELFEGO PURCELL, [address] [address] Assigned Musculoskeletal Provider 08/13/24 documented as of this encounter
--- OUTSIDE RECORDS SUMMARY | 2024-10-19 19:36 | XMS_ITS | Clinical Summary ---
Author Organization [facility] Address [address] [place], [place] [address]. [place] [address] Care Team Providers Care Photovoltaic Installation Technician Name Role Phone Kun Cueva MD Primary Care Provider [phone] Kun Cueva MD Unavailable [phone] Vonda Mendoza APRN FISH CLEANER Unavaila ble Kun Cueva MD Unavailable [phone] Heena Mederos FISH CLEANER Unavailable [phone] Albert Mix PharmD Unavailable [phone] Albert Mix PharmD Unavailable [phone] Hector Vicente DO Unavailable [phone] Allergies No known active allergies Medications acetaminophen (TYLENOL) 325 MG tablet Take 650 mg by mouth every 4 hours as needed. Active aspirin (ASA) 325 MG EC tablet Take 325 mg by mouth daily 05/15/19 18 Active hydrOXYzine (ATARAX) 25 MG tabletIndication s:MICHEAL (generalized anxiety disorder) Take 1 tablet (25 mg) by mouth 3 times daily as needed for anxiety 30 tablet 2 07/28/19 23 Active traZODone (DESYREL) 100 MG tabletIndication s:Insomnia, unspecified type Take 1 tablet (100 mg) by mouth at bedtime. 90 tablet 3 01/17/20 24 Active multivitamin w/minerals (MULTI-VITAMIN) tablet Take 1 tablet by mouth daily. Active calcium acetate (PHOSLO) 667 MG CAPS capsule Take 667 mg by mouth 3 times daily (with meals). Active escitalopram (LEXAPRO) 10 MG tabletIndication s:MICHEAL (generalized anxiety disorder),Modera te episode of recurrent major depressive disorder (H) Take 1 tablet (10 mg) by mouth daily. 90 tablet 1 06/28/19 25 Active DULoxetine (CYMBALTA) 60 MG capsuleIndicatio ns:MICHEAL (generalized anxiety disorder) Take 2 capsules (120 mg) by mouth daily. 180 capsule 2 07/03/19 25 Active pregabalin (LYRICA) 50 MG capsuleIndicatio ns:Right lumbar radiculopathy Take 1 capsule (50 mg) by mouth 3 times daily. 90 capsule 2 09/11/19 25 Active propranolol ER (INDERAL LA) 80 MG 24 hr capsuleIndicatio ns:MICHEAL (generalized anxiety disorder) Take 1 capsule by mouth once daily 90 capsule 09/17/19 25 Active lamoTRIgine (LAMICTAL) 100 MG tabletIndication s:Moderate episode of recurrent major depressive disorder (H) Take 1 tablet (100 mg) by mouth 2 times daily. 180 tablet 09/17/19 25 Active famotidine (PEPCID) 40 MG tabletIndication s:Dyspepsia Take 1 tablet (40 mg) by mouth 2 times daily. 180 tablet 1 09/18/19 25 Active montelukast (SINGULAIR) 10 MG tabletIndication s:Non-seasonal allergic rhinitis, unspecified trigger Take 1 tablet (10 mg) by mouth at bedtime. 90 tablet 2 09/18/19 25 Active tirzepatide-Weig ht Management (ZEPBOUND) 10 MG/0.5ML prefilled penIndications:H istory of obesity,Dyslipid emia,History of morbid obesity Inject 0.5 mLs (10 mg) subcutaneously every 7 days. 6 mL 1 10/15/19 25 Active tirzepatide-Weig ht Management (ZEPBOUND) 12.5 MG/0.5ML prefilled penIndications:H istory of obesity,Dyslipid emia,DDD (degenerative disc disease), cervical,BMI 29.0-29.9,adult Inject 0.5 mLs (12.5 mg) subcutaneously every 7 days. 2 mL 1 08/26/19 25 025 Discontin ued(Side effects) tirzepatide-Weig ht Management (ZEPBOUND) 10 MG/0.5ML prefilled penIndications:H istory of obesity,Dyslipid emia,History of morbid obesity Inject 0.5 mLs (10 mg) subcutaneously every 7 days. 6 mL 1 10/03/19 25 025 Discontin ued(Reord er (No AVS)) Active Problems Problem Noted Date Diagnosed Date Insomnia, unspecified type 07/25/2024 Arthritis of right hip 07/25/2024 IUD contraception 07/23/2023 Prediabetes 07/23/2023 Heterogeneously dense tissue of both breasts on mammography 07/23/2023 Left lumbar radiculopathy 12/21/2022 Cervical stenosis of spinal canal 12/21/2022 DDD (degenerative disc disease), cervical 2022 Backache 11/25/2020 Overview (11/25/2020): Created by Conversion Replacement Utility updated for latest IMO load Flatulence, eructation, and gas pain 11/25/2020 Overview (11/25/2020): Created by Conversion Hallux rigidus 11/25/2020 Overview (11/25/2020): Created by Conversion Human papilloma virus infection 11/25/2020 Overview (11/25/2020): Created by Conversion Hyperacusis 11/25/2020 Overview (11/25/2020): Created by Conversion Chronic neck pain 11/25/2020 Overview (11/25/2020): Created by Conversion Other acne 11/25/2020 Overview (11/25/2020): Created by Conversion Other malaise and fatigue 11/25/2020 Overview (11/25/2020): Created by Conversion Hallux limitus, right 11/22/2020 Overview (11/22/2020): Added automatically from request for surgery [id number] Menopausal syndrome (hot flashes) 05/28/2020 Migraine with aura and witho ut status migrainosus, not intractable 09/25/2018 MICHEAL (generalized anxiety disorder) 08/24/2018 Overview (08/24/2018): Overview: Created by Conversion Replacement Utility updated for latest IMO load Dyslipidemia 08/24/2018 Overview (08/24/2018): Overview: Created by Conversion Primary hypercoagulable state 08/24/2018 Overview (09/25/2018): [id number] coumadin (after lovenox) History of leg DVT. Mother with history of factor V, patient reports she tested positive. On aspirin 325 mg daily. Allergic rhinitis 08/24/2018 Overview (08/24/2018): Overview: Created by Conversion Replacement Utility updated for latest IMO load Encounter for IUD removal and reinsertion 2017 Moderate episode of recurrent major depressive d isorder 03/03/2016 Resolved Problems Problem Noted Date Diagnosed Date Resolved Date Acute thromboembolism of errol p veins of lower extremity 11/25/2020 05/09/2021 Overview (11/25/2020): Created by Conversion Replacement Utility updated for latest IMO load Other abnormal Papanicolaou smear of cervix and cervical HPV(795.09) 11/25/2020 08/04/2022 Overview (08/04/2022): [facility] Annotation: May 20 2007 3:00PM - Zeina Sosa: ASCUS +HPV no results to review 09/07/10 NIL Pap 05/13/12 NIL Pap, Neg HR HPV 05/03/17 NIL Pap, Neg HR HPV 07/27/22 NIL Pap, Neg HR HPV Plan routine screening cotest in 5 years per provider. Controlled substance agreement signed 05/28/2020 06/10/2024 Obesity (BMI 35.0-39.9) with comorbidity 09/25/2018 05/09/2024 Chronic, continuous use of opioids 09/25/2018 06/10/2024 Encounters Date Type Department Care Team Description 10/14/2024 MyC Refill [facility] [address] [phone] Harvey Corrales MD Refill Request 10/05/2024 MyC Refill [facility] [address] [phone] Harvey Corrales MD Refill Request 10/02/2024 Orders Only [facility] [address] [phone] Harvey Corrales MD History of obesity (Primary Dx); Dyslipidemia; History of morbid obesity 09/29/2024 MyC Medical Advice [facility] [address] [phone] Harvey Corrales MD 09/17/2024 MyC Refill [facility] [address] [phone] Harvey Corrales MD Refill Request 09/17/2024 MyC Refill [place] [address] [place] [phone] Kun Cueva MD Refill Request 09/16/2024 Refill [facility] [address] [place] [phone] Kun Cueva MD 09/11/2024 Telephone [facility] [address] [place] [phone] Kun Cueva MD Referral 09/10/2024 3:30 PM CDT Office Visit [facility] [address] [place] [phone] Kun Cueva MD Erickson, Brian A, MD Right lumbar radiculopathy 09/10/2024 Travel 09/09/2024 MyC Medical Advice [facility] [address] [place] [phone] Kun Cueva MD 09/08/2024 MyC Medical Advice [facility] [address] [place] [phone] Kun Cueva MD Special screening for malignant neoplasms, colon (Primary Dx) 09/07/2024 Travel 09/01/2024 MyC Medical Advice [facility] [address] [place] [phone] Kun Cueva MD Insomnia, unspecified type (Primary Dx) 08/29/2024 12:15 PM CDT Therapy Visit [facility] [place] [address] [place] [address] Annabel Go, PT Primary osteoarthritis of right hip; Greater trochanteric pain syndrome of right lower extremity 08/29/2024 Refill [facility] [place] [address] [place] [phone] Harvey Corrales MD Refill Request 08/29/2024 Travel 08/28/2024 Travel 08/27/2024 Results Follow-Up [facility] [address] [place] [phone] Kun Cueva MD Subj: Message about your results 08/27/2024 MyC Medical Advice [facility] [address] [place] [phone] Kun Cueva MD 08/26/2024 8:10 AM CDT Office Visit [facility] [address] [place] [phone] Kun Cueva MD Elevated serum creatinine (Primary Dx); Low hemoglobin; Weight loss; Moderate episode of recurrent major depressive disorder (H) 08/26/2024 Refill [facility] [address] [place] [address] Hector Vicente DO Medication Refill 08/25/2024 Travel 08/25/2024 Refill [facility] [address] [place] [phone] Harvey Corrales MD Refill Request 08/25/2024 MyC Medical Advice [facility] [address] [place] [phone] Kun Cueva MD Non-seasonal allergic rhinitis, unspecified trigger 08/10/2024 9:44 AM CDT - 08/10/2024 11:59 PM CDT Hospital Encounter [facility] [address] [place] [phone] Kun Cueva MD Dyslipidemia Discharge Disposition: Home or Self Care 08/10/2024 Travel 08/07/2024 Travel 08/04/2024 1:30 PM CDT Virtual Visit [facility] [address] [place] [address] Albert Mix, DejaD Chronic neck pain (Primary Dx); Migraine with aura and without status migrainosus, not intractable; Moderate episode of recurrent major depressive disorder (H); MICHEAL (generalized anxiety disorder); Class 1 obesity due to excess calories with serious comorbidity and body mass index (BMI) of 31.0 to 31.9 in adult 08/04/2024 MyC Medical Advice [facility] [address] [place] [phone] Hector Vicente DO 08/04/2024 MyC Medical Advice [facility] [place] [address] [place] [address] Harvey Corrales MD 07/31/2024 Orders Only [facility] [address] [place] [address] Kun Cueva MD Dyslipidemia (Primary Dx); Low hemoglobin; Elevated serum creatinine 07/30/2024 MyC Medical Advice [facility] [address] [place] [address] Kun Cueva MD 07/25/2024 9:10 AM CDT Office Visit [facility] [address] [place] [phone] Kun Cueva MD Routine general medical examination at a health care facility (Primary Dx); Dyslipidemia; Screen for colon cancer; MICHEAL (generalized anxiety disorder); Arthritis of right hip; IUD contraception; Insomnia, unspecified type 07/25/2024 Travel 07/20/2024 Travel from Last 3 Months Immunizations Immunization Administration Dates Next Due Flu, Unspecified 07/29/2018,01/21/2007 HepA, Unspecified 05/11/2008,04/19/2007 HepB, Unspecified 03/23/2009,11/09/2008,07/29/19 09 Hepatitis A (VAQTA)(ADULT 19+) 05/11/2008,2006 Hepatitis B, Adult (Energix-B/Recombivax HB) 03/23/2009,11/09/2008,07/28/2008 Influenza (H1N1) 03/23/2009 Influenza (IIV3) PF 04/10/2014, 3,05/13/2012,2010,02/02/2010,01/14/2009,01/21/2007,1 05/19/2005 Influenza Vaccine 18-64 (Flublok) 05/28/2020 Influenza Vaccine >6 months,quad, PF 05/27/2019 Influenza Vaccine, 6+MO IM (QUADRIVALENT W/PRESERVATIVES) 04/26/2017,01/27/2016 Pneumococcal 20 valent Conju gate (Prevnar 20) 07/25/2024 TDAP (Adacel,Boostrix) 04/27/2016,05/01/2006 Tdap (Adult) Unspecified Formulation 05/01/2006 Family History Medical History Relation Comments Deep Vein Thrombosis Brother 1 No Known Problems Brother 2 Factor V Leiden deficiency Brother 3 Diabetes Father Hypertension Father Blood Disease Mother Factor V Clotting Disorder Mother Coronary Artery Disease Mother Diabetes Mother Factor V Leiden deficiency Mother Hypertension Mother Lupus Mother Pulmonary Embolism Sister 1 Lupus Sister 2 Unexplained Sister 3 Alcoholism Sister 4 Lupus Sister 4 Relation Status Comments Brother 1 Alive Brother 2 Alive Brother 3 Father April 2023. Mother Sister 1 Sister 2 Alive Sister 3 Sister 4 Social History Tobacco Use Types Packs/Day Years [...] re latives? Once a week 07/20/2024 Attends [employer] Services Not on file 07/20 Active Member [...] Answer Date Recorded PHQ-2 Score 2 07/25/2024 [facility] - Occupational [...] in an abandoned building, in an overnight retirement, or couch-surfing.) Yes 07/20/2024 Are you worried [...] Sex Assigned at Female 05/26/2019 4:02 PM INVENTORY CONTROL SPECIALIST Legal Sex Female 5:12 AM INVENTORY CONTROL SPECIALIST Gender Identity Female 05/26/2019 4:02 PM INVENTORY CONTROL SPECIALIST Sexual Orientation Straight 05/26/2019 4: 02 PM INVENTORY CONTROL SPECIALIST Last Filed Vital Signs Vital Sign Reading Time Taken Comments Blood Pressure 128/74 09/10/2024 3:13 PM CDT Pulse 62 09/10/2024 3:13 PM CDT Temperature 36.9 C (98.5 F) 08/26/2024 8:01 AM CDT Respiratory Rate 16 08/26/2024 8:01 AM CDT Oxygen Saturation 100% 09/10/2024 3:13 PM CDT Inhaled Oxygen Concentration - - Weight 81.6 kg (180 lb) 08/26/2024 8:01 AM CDT Height 165.1 cm (5' 5) 08/26/2024 8:01 AM CDT Body Mass Index 29.95 08/26/2024 8:01 AM CDT Plan of Treatment Upcoming Encounters Date Type Department Care Team (Late st Contact Info) Description 11/20/2024 3:00 PM CDT Virtual Visit [facility] [address] [place] [phone] Harvey Corrales MD [address] [place] [address] [address] [place] [address] 07/27/2025 3:10 PM CDT Office Visit [facility] [address] [place] [phone] Kun Cueva MD [address] [place], [place] [phone] Health Maintenance Due Date Last Done Comments CT COLONOGRAPHY 1969 FIT 1969 FLEX SIG 1969 sDNA (Cologuard) 1969 ZOSTER VACCINE (1 of 2) 2019 COVID-19 VACCINE ( season) 2023 INFLUENZA VACCINE (Season Ended) 2024 05/28/2020, 05/27/2019, 07/29/2018, Additional history exists PHQ-9 01/24/2025 07/25/2024, 04/23, 08/19/2023, Additional history exists LIPID 07/25/2025 07/25/2024, 04/0 04/2023, 05/28/2020, Additional history exists YEARLY PREVENTIVE VISIT 07/25/2025 07/26/19, 07/23/2023, 07/27/2022, Additional history exists ANNUAL REVIEW OF HM ORDERS 08/26/202508/26, 07/23/2023, 07/27/2022 MAMMO SCREENING 10/28/2025 10/29/2023, 03, 07/05/2021, Additional history exists DTAP/TDAP/TD VACCINE (4 - Td or Tdap) 04/27/2026 04/27/2016, 05/01/2006, 05/01/2006 HPV TEST 07/28/2027 07/27/2022, 04/23, 05/03/2017, Additional history exists PAP 07/28/2027 07/27/2022, 04/23, 05/03/2017, Additional history exists DIABETES SCREENING 08/27/2027 08/26/2024, 0 07/25/2024, 07/23/2023, Additional history exists ADVANCE CARE PLANNING 07/25/2029 07/25/2024, 019 COLONOSCOPY 09/12/2034 09/12/2024 COLORECTAL CANCER SCREENING 09/12/2034 HEPATITIS B VACCINE Completed 03/23/2009, 03/23/2009, 11/09/2008, Additional history exists HEPATITIS C SCREENING Completed 05/28/2020, 021 HIV SCREENING Completed 05/28/2020, 02/0 08/2020, 05/27/2019 DEPRESSION ACTION PLAN Completed 4, 07/27/2022, 07/27/2022 PNEUMOCOCCAL VACCINE 50+ YEARS Completed 07/25/2024 HPV VACCINE Aged Out No longer eligi ble based on patient's age to complete this topic MENINGITIS VACCINE Aged Out No longer eligible based on patient's age to complete this topic URINE DRUG SCREEN Discontinued Procedures Procedure Name Priority Date/Time Associated Diagnosis Comments CBC WITH PLATELETS & DIFFERENTIAL Routine 08/26/2024 8:32 AM CDT Low hemoglobin CBC WITH PLATELETS AND DIFFERENTIAL Routine 08/26/2024 8:32 AM CDT Low hemoglobin VITAMIN B12 Routine 08/26/2024 8:32 AM CDT Low hemoglobin IRON AND IRON BINDING CAPACITY Routine 08/26/2024 8:32 AM CDT Low hemoglobin COMPREHENSIVE METABOLIC PANEL Routine 08/26/2024 8:32 AM CDT Elevated serum creatinine CT CALCIUM SCREENING Routine 08/10/2024 9:55 AM CDT Dyslipidemia RADIOLOGIST CONSULT FOR CARDIOLOGY Routine 08/10/2024 9:55 AM CDT Dyslipidemia CBC WITH PLATELETS & DIFFERENTIAL Routine 07/25/2024 9:38 AM CDT Routine general medical examination at a health care facility CBC WITH PLATELETS AND DIFFERENTIAL Routine 07/25/2024 9:38 AM CDT Routine general medical examination at a health care facility COMPREHENSIVE METABOLIC PANEL Routine 07/25/2024 9:38 AM CDT Routine general medical examination at a health care facility LIPID REFLEX TO DIRECT LDL PANEL Routine 07/25/2024 9:38 AM CDT Dyslipidemia MA SCREENING BILATERAL W/ MARTINEZ Routine 10/29/2023 2:53 PM CDT Heterogeneously dense tissue of both breasts on mammography GYNECOLOGIC CYTOLOGY Routine 07/27/2022 11:59 AM CDT Cervical cancer screening HPV HIGH RISK TYPES DNA CERVICAL Routine 07/27/2022 11:59 AM CDT Cervical cancer screening HIV ANTIGEN ANTIBODY COMBO Routine 05/28/2020 9:20 AM INVENTORY CONTROL SPECIALIST HEPATITIS C ANTIBODY Routine 05/28/2020 9:20 AM INVENTORY CONTROL SPECIALIST from Last 3 Months or Most Recently Relevant to Health Maintenance Results * CBC with platelets and differential (08/26/2024 8:32 AM CDT) Only the most recent of2 resultswithin the time period is included. WBC Count 7.0 4.0 - 11.0 10e3/uL 08/26/2024 8:39 AM CDT [facility] RBC Count 4.17 3.80 - 5.20 10e6/uL 08/26/2024 8:39 AM CDT [facility] Hemoglobin 12.3 11.7 - 15.7 g/dL 08/26/2024 8:39 AM CDT [facility] Hematocrit 38.1 35.0 - 47.0 % 08/26/2024 8:39 AM CDT [facility] MCV 91 78 - 100 fL 08/26/2024 8:39 AM CDT [facility] MCH 29.5 26.5 - 33.0 pg 08/26/2024 8:39 AM CDT [facility] MCHC 32.3 31.5 - 36.5 g/dL 08/26/2024 8:39 AM CDT [facility] RDW 12.8 10.0 - 15.0 % 08/26/2024 8:39 AM CDT [facility] Platelet Count 229 150 - 450 10e3/uL 08/26/2024 8:39 AM CDT [facility] % Neutrophils 51 % 08/26/2024 8:39 AM CDT [facility] % Lymphocytes 37 % 08/26/2024 8:39 AM CDT [facility] % Monocytes 6 % 08/26/2024 8:39 AM CDT [facility] % Eosinophils 4 % 08/26/2024 8:39 AM CDT [facility] % Basophils 1 % 08/26/2024 8:39 AM CDT [facility] % Immature Granulocytes 0 % 08/26/2024 8:39 AM CDT [facility] Absolute Neutrophils 3.6 1.6 - 8.3 10e3/uL 08/26/2024 8:39 AM CDT [facility] Absolute Lymphocytes 2.6 0.8 - 5.3 10e3/uL 08/26/2024 8:39 AM CDT [facility] Absolute Monocytes 0.4 0.0 - 1.3 10e3/uL 08/26/2024 8:39 AM CDT [facility] Absolute Eosinophils 0.3 0.0 - 0.7 10e3/uL 08/26/2024 8:39 AM CDT [facility] Absolute Basophils 0.0 0.0 - 0.2 10e3/uL 08/26/2024 8:39 AM CDT [facility] Absolute Immature Granulocytes 0.0 <=0.4 10e3/uL 08/26/2024 8:39 AM CDT [facility] Blood STRUCTURE OF RIGHT UPPER LIMB / Unknown Venipuncture / Unknown 08/26/2024 8:32 AM CDT 08/26/2024 8:37 AM CDT Kun Cueva MD LAB - BLOOD ORDERABLES Final Result [facility] - [address] * (ABNORMAL) Iron and iron binding capacity (08/26/2024 8:32 AM CDT) [facility] Iron 83 37 - 145 ug/dL 08/26/2024 7:37 PM CDT [facility] Iron Binding Capacity 214(L) 240 - 430 ug/dL 08/26/2024 7:37 PM CDT [facility] Iron Sat Index 39 15 - 46 % 08/26/2024 7:37 PM CDT [facility] Blood STRUCTURE OF RIGHT UPPER LIMB / Unknown Venipuncture / Unknown 08/26/2024 8:32 AM CDT 08/26/2024 8:37 AM CDT us Kun Cueva MD LAB - BLOOD ORDERABLES Final Result [facility] [address] [facility] [place] [address], [facility] * (ABNORMAL) Comprehensive metabolic panel (BMP + Alb, Alk Phos, ALT, AST, Total. Bili, TP) (08/26/2024 8:32 AM CDT) Only the most recent of2 resultswithin the time period is included. Sodium 141 135 - 145 mmol/L 08/26/2024 7:37 PM CDT [facility] Potassium 4.5 3.4 - 5.3 mmol/L 08/26/2024 7:37 PM CDT [facility] Carbon Dioxide (CO2) 30(H) 22 - 29 mmol/L 08/26/2024 7:37 PM CDT [facility] Anion Gap 8 7 - 15 mmol/L 08/26/2024 7:37 PM CDT [facility] Urea Nitrogen 13.3 6.0 - 20.0 mg/dL 08/26/2024 7:37 PM CDT [facility] Creatinine 1.01(H) 0.51 - 0.95 mg/dL 08/26/2024 7:37 PM CDT [facility] GFR Estimate 65 >60 mL/min/1.7 3m2 08/26/2024 7:37 PM CDT [facility] Comment:eGFR calculated 2020 CKD-EPI equation. Calcium 9.4 8.8 - 10.4 mg/dL 08/26/2024 7:37 PM CDT [facility] Chloride 103 98 - 107 mmol/L 08/26/2024 7:37 PM CDT [facility] Glucose 85 70 - 99 mg/dL 08/26/2024 7:37 PM CDT [facility] Alkaline Phosphatase 35(L) 40 - 150 U/L 08/26/2024 7:37 PM CDT [facility] AST 17 0 - 45 U/L 08/26/2024 7:37 PM CDT [facility] ALT 12 0 - 50 U/L 08/26/2024 7:37 PM CDT [facility] Protein Total 6.6 6.4 - 8.3 g/dL 08/26/2024 7:37 PM CDT [facility] Albumin 4.2 3.5 - 5.2 g/dL 08/26/2024 7:37 PM CDT [facility] Bilirubin Total 0.3 <=1.2 mg/dL 08/26/2024 7:37 PM CDT [facility] Blood STRUCTURE OF RIGHT UPPER LIMB / Unknown Venipuncture / Unknown 08/26/2024 8:32 AM CDT 08/26/2024 8:37 AM CDT Kun Cueva MD LAB - BLOOD ORDERABLES Final Result [facility] [address] [facility], [address] * Vitamin B12 (08/26/2024 8:32 AM CDT) Pathologist [facility] Vitamin B12 1,147 232 - 1,245 pg/mL 08/26/2024 7:37 PM CDT [facility] Blood STRUCTURE OF RIGHT UPPER LIMB / Unknown Venipuncture / Unknown 08/26/2024 8:32 AM CDT 08/26/2024 8:37 AM CDT us Kun Cueva MD LAB - BLOOD ORDERABLES Final Result [facility] [address] [facility], [address] * Radiologist Consult For Cardiology (08/10/2024 9:55 AM CDT) Anatomical Region Laterality Modality Computed Tomogra phy 08/10/2024 9:55 AM CDT Impressions 08/10/2024 11:34 AM CDT IMPRESSION: 1. No significant incidental extracardiac findings. 2. Please refer to anesthesia assistant's dictation for the cardiac CT report. Narrative 08/10/2024 11:34 AM CDT OVERREAD: DETAILED [facility] EXTRACARDIAC OVERREAD OF CARDIAC CT LOCATION: [facility] DATE: 08/10/2024 INDICATION: Dyslipidemia TECHNIQUE: Dose reduction techniques were used. COMPARISON: None. FINDINGS: LIMITED CHEST: Negative. LIMITED MEDIASTINUM: Negative. LIMITED UPPER ABDOMEN: Negative. LIMITED MUSCULOSKELETAL: Negative. Procedure Note Otis Camejo MD - 08/10/2024 OVERREAD: DETAILED [facility] EXTRACARDIAC OVERREAD OF CARDIAC CT LOCATION: [facility] DATE: 08/10/2024 INDICATION: Dyslipidemia TECHNIQUE: Dose reduction techniques were used. COMPARISON: None. FINDINGS: LIMITED CHEST: Negative. LIMITED MEDIASTINUM: Negative. LIMITED UPPER ABDOMEN: Negative. LIMITED MUSCULOSKELETAL: Negative. IMPRESSION: 1. No significant incidental extracardiac findings. 2. Please refer to anesthesia assistant's dictation for the cardiac CT report. Kun Cueva MD IM DIAGNOSTIC IMAGING ORDER RENETTA Final Result * CT Coronary Calcium Scan (08/10/2024 9:55 AM CDT) Agatston Score of Left Main 0 RADIANT Agatston Score of the Left Anterior Descending 0 RADIANT Agatston Score of Circumflex 0 RADIANT Agatston Score of Right Coronary Artery 0 RADIANT Total Score 0.00 RADIANT Anatomical Region Laterality Modality Chest, UMP CT CTA Computed Tomog nasim Narrative 08/11/2024 3:20 PM CDT Calcium Scoring: The total Agatston score is 0. A calcium score of zero places the individual in the lowest quartile when compared to an age and gender matched control group and implies a low risk of cardiac events in the next 10 years. (less than 1% per year). Technical Details TECHNIQUE: Retrospective ECG gated CT scanning of the heart without IV contrast was performed using flash scanning at 3 mm slice increments on a Siemens Definition Flash CT scanner. The study was performed after a discussion of the goals, risk and benefits of the procedure including the risk of diagnostic x-ray exposure. The imaging protocol was individualized to minimize radiation exposure. Noncardiac Please note: Radiology review for incidental non cardiac findings will be under separate report by the radiologist. Calcium Scoring The total Agatston score is 0. A calcium score of zero places the individual in the lowest quartile when compared to an age and gender matched control group and implies a low risk of cardiac events in the next 10 years. (less than 1% per year). Calcium Score Additonal Info BACKGROUND A coronary artery calcium (CAC) score is a measurement of the amount of calcium (hard plaque) in the brunson of the arteries that supply the heart muscle. Numerous studies have indicated that this test is a reliable measure of risk for adverse cardiovascular events, such as heart attack and stroke. MANAGEMENT The [place] Heart Association/[place] College of Cardiology (AHA/ACC) 2018 Guideline on the Management of Blood Cholesterol states: If CAC is zero, treatment with statin therapy may be withheld or delayed, except in certain very high-risk individuals such as cigarette smokers, those with diabetes mellitus, and those with a strong family history of premature atherosclerotic disease. A CAC score of 1 to 99 favors statin therapy, especially in those greater than or equal to 55 years of age. For any patient, if the CAC score is greater than or equal to100 Agatston units or greater than or equal to 75th percentile, statin therapy is indicated unless otherwise deferred by the outcome of clinician-patient risk discussion. The Society of Cardiovascular CT (SCCT) CAC guideline recommends the following: CAC score 0: statin is generally not recommended CAC score 1-99: moderate-intensity statin generally recommended CAC score 100-299: moderate to high-intensity statin + Aspirin 81mg CAC score >300: high intensity statin + Aspirin 81mg GENERAL RECOMMENDATIONS Adoption and maintenance of a healthy lifestyle is recommended for all people. This should include regular, appropriate exercise and observance of a proper diet, to ensure balanced nutrition and weight control. Tobacco use should be avoided. Cholesterol has been linked to coronary atherosclerosis, and we strongly encourage adhering to the recommendations of the 2018 ACC/AHA guidelines on the Management of Blood Cholesterol. For primary prevention, these include calculation of 10-year ASCVD risk and initiation of statin therapy based on estimated ASCVD risk and LDL cholesterol. The VU risk score, which combines traditional risk factors and CAC, is available online on the VU website (https://www.vu-nhlbi.org/MESACHDRisk/MesaRiskScore/RiskScore.aspx). (Ham LARA, et al. J Am Tiara Cardiol. 2015 Feb 02;66(15):2897-99.) However, note that these are general recommendations only, and as with all such matters, the personal physician should be consulted regarding recommendations appropriate for the individual. If further guidance is needed, you can schedule an appointment with one of our Preventive Cardiologists ([email or web address]). References: 1. 2018 AHA/ACC/AACVPR/AAPA/ABC/ACPM/ADA/AGS/APhA/ASPC/NLA/PCNA Guideline on the Management of Blood Cholesterol 2. CAC-DRS: Coronary Artery Calcium Data and Reporting System. An expert consensus document of the Society of Cardiovascular Computed Tomography (SCCT) us Kun Cueva MD IMG CT ORDERABLES Final Resu lt * (ABNORMAL) Lipid panel reflex to direct LDL Fasting (07/25/2024 9:38 AM CDT) Cholesterol 200(H) <200 mg/dL 07/25/2024 5:51 PM CDT [facility] Triglycerides 106 <150 mg/dL 07/25/2024 5:51 PM CDT [facility] Direct Measure HDL 38(L) >=50 mg/dL 07/25/2024 5:51 PM CDT [facility] LDL Cholesterol Calculated 141(H) <100 mg/dL 07/25/2024 5:51 PM CDT [facility] Non HDL Cholesterol 162(H) <130 mg/dL 07/25/2024 5:51 PM CDT [facility] Patient Fasting > 8hrs? Yes 07/25/2024 5:51 PM CDT [facility] Blood BLOOD SPECIMEN / Unknown Venipuncture / Unknown 07/25/2024 9:38 AM CDT 07/25/2024 9:38 AM CDT Narrative [facility] - 07/25/2024 5:51 PM CDT Cholesterol Desirable: < 200 mg/dL Borderline High: 200 - 239 mg/dL High: >= 240 mg/dL Triglycerides Normal: < 150 mg/dL Borderline High: 150 - 199 mg/dL High: 200-499 mg/dL Very High: >= 500 mg/dL Direct Measure HDL Female: >= 50 mg/dL Male: >= 40 mg/dL LDL Cholesterol Desirable: < 100 mg/dL Above Desirable: 100 - 129 mg/dL Borderline High: 130 - 159 mg/dL High: 160 - 189 mg/dL Very High: >= 190 mg/dL Non HDL Cholesterol Desirable: < 130 mg/dL Above Desirable: 130 - 159 mg/dL Borderline High: 160 - 189 mg/dL High: 190 - 219 mg/dL Very High: >= 220 mg/dL Kun Cueva MD LAB - BLOOD ORDERABLES Final Result LABORATORY [facility] [address] [facility], [address] [place] [address] * MA Screen Bilateral w/Martinez (10/29/2023 2:53 PM CDT) Anatomical Region Laterality Modality Breast Bilateral Mammography Impressions 10/29/2023 3:10 PM CDT IMPRESSION: ACR BI-RADS Category 1: Negative BREAST CANCER SCREENING RECOMMENDATION: Routine yearly mammography beginning at age 40 or as discussed with your provider. The results and recommendations of this examination will be communicated to the patient. Tucker Acosta Narrative 10/29/2023 3:10 PM CDT BILATERAL FULL FIELD DIGITAL SCREENING MAMMOGRAM WITH TOMOSYNTHESIS Performed on: 10/29/23 Compared to: 07/10/2022, 07/05/2021, and 09/15/2016 Technique: This study was evaluated with the assistance of Computer-Aided Detection. Breast Tomosynthesis was used in interpretation. Findings: The breasts are heterogeneously dense, which may obscure small masses. There is no radiographic evidence of malignancy. Kun Cueva MD IMG MAMMOGRAPHY ORDERABLES F inal Result * Pap Screen with HPV - recommended age 30 - 65 years (07/27/2022 11:59 AM CDT) Interpretation Negative for Intraepithelial Lesion or Malignancy (NILM) 08/02/2022 8:40 AM CDT [facility] at 0840 CDT Comment Papanicolaou Test Limitations: Cervical cytology is a screening test with limited sensitivity, and regular screening is critical for cancer prevention. Pap tests are primarily effective for the diagnosis/prevent ion of squamous cell carcinoma, not adenocarcinoma or other cancers. 08/02/2022 8:40 AM CDT [facility] Specimen Adequacy Satisfactory for evaluation, endocerv/transfor mation zone component absent, atrophy 08/02/2022 8:40 AM CDT [facility] Clinical Information post-menopausal 08/02/2022 8:40 AM CDT [facility] Reflex Testing Yes regardless of result 08/02/2022 8:40 AM CDT [facility] Previous Abnormal? No 08/02/2022 8:40 AM CDT [facility] Performing Labs The technical component of this testing was completed at [facility] 08/02/2022 8:40 AM CDT [facility] Brushing CERVIX UTERI STRUCTURE / Unknown 07/27/2022 11:59 AM CDT 07/27/2022 12:29 PM CDT Kun JACK - SHIRA AP Final Result [facility] Specialty Lab [address] [facility], [address] [address], [facility] [phone] * HPV High Risk Types DNA Cervical (07/27/2022 11:59 AM CDT) Other HR HPV Negative Negative 08/03/2022 1:27 PM CDT [facility] HPV16 DNA Negative Negative 08/03/2022 1:27 PM CDT [facility] HPV18 DNA Negative Negative 08/03/2022 1:27 PM CDT [facility] FINAL DIAGNOSIS This patient's sample is negative for HPV DNA. This test was developed and its performance characteristics determined by the [facility], Molecular Diagnostics Laboratory. It has not been cleared or approved by the FDA. The laboratory is regulated under CLIA as qualified to perform high-complexity testing. This test is used for clinical purposes. It should not be regarded as investigational or for research. METHODOLOGY: The Jose Connie 4800 system uses automated extraction, simultaneous amplification of HPV (L1 region) and beta-globin, followed by real time detection of fluorescent labeled HPV and beta globin using specific oligonucleotide probes. The test specifically identifies types HPV 16 DNA and HPV 18 DNA while concurrently detecting the rest of the high risk types (31, 33, 35, 39, 45, 51, 52, 56, 58, 59, 66 or 68). COMMENTS: This test is not intended for use as a screening device for woman under age 30 with normal cervical cytology. Results should be correlated with cytologic and histologic findings. Close clinical followup is recommended. 08/03/2022 1:27 PM CDT [facility] Brushing CERVIX UTERI STRUCTURE / Unknown Non-blood Collection / Unknown 07/27/2022 11:59 AM CDT 08/03/2022 7:27 AM CDT Kun Cueva MD LAB - BLOOD ORDERABLES Final Result [facility] [address] [facility], [address] [id number], [facility] [phone] * HIV Antigen Antibody Combo (05/28/2020 9:20 AM INVENTORY CONTROL SPECIALIST) HIV Antigen Antibody Combo Negative Negative 05/28/2020 5:57 PM INVENTORY CONTROL SPECIALIST Blood specimen (specimen) Venipuncture / Unknown 05/28/2020 9:20 AM INVENTORY CONTROL SPECIALIST 05/28/2020 2:40 PM INVENTORY CONTROL SPECIALIST Narrative 05/28/2020 5:57 PM INVENTORY CONTROL SPECIALIST Method is Abreu HIV Ag/Ab for the detection of HIV p24 antigen, HIV-1 antibodies and HIV-2 antibodies. Kun Cueva MD LAB - BLOOD ORDERABLES Final Result * Hepatitis C antibody (05/28/2020 9:20 AM INVENTORY CONTROL SPECIALIST) Hepatitis C Antibody Negative Negative 05/31/2020 9:36 AM INVENTORY CONTROL SPECIALIST Blood specimen (specimen) Venipuncture / Unknown 05/28/2020 9:20 AM INVENTORY CONTROL SPECIALIST 05/28/2020 2:43 PM INVENTORY CONTROL SPECIALIST Kun Cueva MD LAB - BLOOD ORDERABLES Final Result from Last 3 Months or Most Recently Relevant to Health Maintenance Insurance [employer] [facility] * Guarantor: Sarah Waldron Account Type Relation to Patient Date of Phone Billing Address Medication Therapy Self 1970 [address] [place] [id number] [facility] Address: [facility] [address] [place] [address] Care Teams Photovoltaic Installation Technician Relationship Specialty Start Date End Date Kun Cueva MD [address] [place] [address] PCP - General Family Medicine 11/17/20 Kun Cueva MD [address] [place] [address] Assigned PCP 11/21/20 Vonda Mendoza APRN FISH CLEANER [address] [place], [place] [id number], [place] [address] Nurse Practitioner Neurology 07/27/21 Kun Cueva MD [address] [place] [address] Referring Physician Family Medicine 07/27/21 Heena Mederos CNP [address] [place] [address] [place] [id number] Assigned Neuroscience Provider 05/17/23 Albert Mix, DejaD [address] [address] Pharmacist Pharmacist 07/07/24 Albert Mix, Will [address] [address] Assigned MTM Pharmacist 07/13/24 [place] [address] ELFEGO PURCELL, [address] [address] Assigned Musculoskeletal Provider 08/13/24
--- OUTSIDE RECORDS SUMMARY | 2024-10-19 19:36 | XMS_ITS | Encounter Summary ---
Author Organization [facility] Address [address] [place], [place] [address]e. [place] [address] Care Team Providers Care Gallery Assistant Name Role Phone Kun Cueva MD Primary Care Provider [phone] Kun Cueva MD Unavailable [phone] Vonda Mendoza APRN MANAGER MINING Unavaila ble Kun Cueva MD Unavailable [phone] Heena Mederos MANAGER MINING Unavailable [phone] Albert Mix PharmD Unavailable [phone] Albert Mix PharmD Unavailable [phone] Hector Vicente DO Unavailable [phone] Encounter Details Date Type Department Care Team (Late st Contact Info) Description 07/10/2024 MyC Medical Advice [facility] [address] [place] [phone] Harvey Corrales MD [address] [place] [address] Social History Tobacco Use Types Packs/Day [...] re latives? Once a week 07/17/2023 Attends [employer] Not on file 07/16 Active Member [...] Answer Date Recorded PHQ-2 Score 2 05/09/2024 [facility] - Occupational [...] in an overnight long-term, or couch-surfing.) Yes 07/17/2023 Are you worried [...] Sex Assigned at Female 05/26/2019 4:02 PM EARLY INTERVENTIONIST Legal Sex Female 5:12 AM EARLY INTERVENTIONIST Gender Identity Female 05/26/2019 4:02 PM EARLY INTERVENTIONIST Sexual Orientation Straight 05/26/2019 4: 02 PM EARLY INTERVENTIONIST documented as of this encounter Miscellaneous Notes * Telephone Encounter - Brenda Robles RN - 07/10/2024 10:23 AM CDT Also got a refill request today for the Zepbound 10 mg dose but not sure if Dr. Corrales wanted to move the dose up so will wait to refill. Brenda Robles RN documented in this encounter Plan of Treatment Upcoming Encounters Date Type Department Care Team (Late st Contact Info) Description 11/20/2024 3:00 PM CDT Virtual Visit [facility] [address] [phone] Harvey Corrales MD [address] [place] [address] 07/27/2025 3:10 PM CDT Office Visit [place] [address] [place] [phone] Kun Cueva MD [address] [place] [address] documented as of this encounter Visit Diagnoses Not on filedocumented in this encounter Additional Health Concerns Assessment Noted Time PHQ-9 Depression Total Score: 7 05/09/19 25 7:52 AM EARLY INTERVENTIONIST documented as of this encounter Care Teams Gallery Assistant Relationship Specialty Start Date End Date Kun Cueva MD [address] [facility] [address] [place] [address] PCP - General Family Medicine 11/17/20 Kun Cueva MD [address] [facility] 96 [place] [address] Assigned PCP 11/21/20 Vonda Mendoza APRN MANAGER MINING [address] [place], [place] [id number] [address] Nurse Practitioner Neurology 07/27/21 Kun uCeva MD [address] [address] Referring Physician Family Medicine 07/27/21 Heena Mederos CNP [address] [place] [address] JUL[place]NA MCGEE [address] Assigned Neuroscience Provider 05/17/23 Albert Mix, DejaD [address] [address] Pharmacist Pharmacist 07/07/24 Albert Mix, DejaD [address] [address] Assigned MTM Pharmacist 07/13/24 [place] [address] ELFEGO PURCELL, [address] [address] Assigned Musculoskeletal Provider 08/13/24 documented as of this encounter
--- OUTSIDE RECORDS SUMMARY | 2024-10-19 19:36 | XMS_ITS | Encounter Summary ---
Author Organization [facility] Address [address] [place], [place] [address]e. [place] [address] Care Team Providers Care Private Wealth Advisor Name Role Phone Kun Cueva MD Primary Care Provider [phone] Knu Cueva MD Unavailable [phone] Vonda Mendoza APRN SUPERVISOR [employer] Unavaila ble Kun Cueva MD Unavailable [phone] Heena Mederos SUPERVISOR [employer] Unavailable [phone] Albert Mix PharmD Unavailable [phone] Albert Mix PharmD Unavailable [phone] Hector Vicente DO Unavailable [phone] Reason for Visit * Reason Onset Date Comments Refill Request 09/17/2024 Encounter Details Date Type Department Care Team (Late st Contact Info) Description 09/17/2024 MyC Refill [facility] [address] [place] [phone] Kun Cueva MD [address] [place] [address] Refill Request Social History Tobacco Use Types [...] re latives? Once a week 07/20/2024 Attends [employer] Not on file 07/20 Active Member [...] Answer Date Recorded PHQ-2 Score 2 07/25/2024 [facility] - [...] in an abandoned building, in an overnight skilled nursing, or couch-surfing.) Yes 07/20/2024 Are you worried [...] Sex Assigned at Female 05/26/2019 4:02 PM CRATE ICER Legal Sex Female 5:12 AM CRATE ICER Gender Identity Female 05/26/2019 4:02 PM CRATE ICER Sexual Orientation Straight 05/26/2019 4: 02 PM CRATE ICER documented as of this encounter Plan of Treatment Upcoming Encounters Date Type Department Care Team (Late st Contact Info) Description 11/20/2024 3:00 PM CDT Virtual Visit [facility] and Bariatrics Care [address] [place] [phone] Harvey Corrales MD [address] [place] [address] [address] [place] [address] 07/27/2025 3:10 PM CDT Office Visit [facility] [address] [place] [phone] Kun Cueva MD [address] [place], [place] [id number] documented as of this encounter Visit Diagnoses Diagnosis Insomnia, unspecified type MICHEAL (generalized anxiety disorder) Generalized anxiety disorder Moderate episode of recurrent major depressive disorder (H) Non-seasonal allergic rhinitis, unspecified trigger documented in this encounter Additional Health Concerns Assessment Noted Time PHQ-9 Depression Total Score: 5 07/26/19 25 8:44 AM CDT documented as of this encounter Care Teams Private Wealth Advisor Relationship Specialty Start Date End Date Kun Cueva MD [address] [place] [address] PCP - General Family Medicine 11/17/20 Kun Cueva MD [address] [place] [address] Assigned PCP 11/21/20 Vonda Mendoza APRN SUPERVISOR [employer] [address] [place], [place] [id number] [address] Nurse Practitioner Neurology 07/27/21 Kun Cueva MD [address] [place] [address] Referring Physician Family Medicine 07/27/21 Heena Mederos CNP [address] [place] [address] [place] [address] Assigned Neuroscience Provider 05/17/23 Albert Mix PharmD [address] [address] Pharmacist Pharmacist 07/07/24 Albert Mix PharmD [address] [address] Assigned MTM Pharmacist 07/13/24 [place] [address] ELFEGO PURCELL, [address] [address] Assigned Musculoskeletal Provider 08/13/24 documented as of this encounter
--- OUTSIDE RECORDS SUMMARY | 2024-10-19 19:36 | XMS_ITS | Encounter Summary ---
Author Organization [facility] Address [address] [place], [place] [address]. [place] [address] Care Team Providers Care Completion Supervisor Name Role Phone Kun Cueva MD Primary Care Provider [phone] Kun Cueva MD Unavailable [phone] Vonda Mendoza APRN MEAT PACKAGER Unavaila ble Kun Cueva MD Unavailable [phone] Heena Mederos MEAT PACKAGER Unavailable [phone] Albetr Mix PharmD Unavailable [phone] Albert Mix PharmD Unavailable [phone] Hector Vicente DO Unavailable [phone] Encounter Details Date Type Department Care Team (Latest Contact Info) Description 09/10/2024 Travel Social History Tobacco Use Types Packs/Day Years [...] re latives? Once a week 07/20/2024 Attends Baptism Services Not on file 07/20 Active Member of Clubs or Organizations Not on f ile 07/20/2024 Attends Club or Organization Meetings Not on gertrude e 07/20/2024 Marital Status Not on file 07/20/2024 AUDIT-C Answer Date Recorded Frequency of Alcohol Consumption 2-4 times a mon th 09/25/2018 Average Number of Drinks 1 or 2 019 Frequency of Binge Drinking Not on file 08/2018 PHQ-2 Answer Date Recorded PHQ-2 Score 2 07/25/2024 [facility] Questionnaire Answer Date Recorded [...] in an abandoned building, in an overnight group home, or couch-surfing.) Yes 07/20/2024 Are you worried [...] Sex Assigned at Female 05/26/2019 4:02 PM RETAIL AND RESTAURANT Legal Sex Female 5:12 AM RETAIL AND RESTAURANT Gender Identity Female 05/26/2019 4:02 PM RETAIL AND RESTAURANT Sexual Orientation Straight 05/26/2019 4: 02 PM RETAIL AND RESTAURANT documented as of this encounter Plan of Treatment Upcoming Encounters Date Type Department Care Team (Late st Contact Info) Description 11/20/2024 3:00 PM CDT Virtual Visit [facility] Surgery Clinic and Bariatrics Care [address] [place] [address] Harvey Corrales MD [address] [place] [address] 07/27/2025 3:10 PM CDT Office Visit [facility] [address] [place] [address] Kun Cueva MD [address] [place] [address] documented as of this encounter Visit Diagnoses Not on filedocumented in this encounter Additional Health Concerns Assessment Noted Time PHQ-9 Depression Total Score: 5 07/26/19 25 8:44 AM CDT documented as of this encounter Care Teams Completion Supervisor Relationship Specialty Start Date End Date Kun Cueva MD [address] [place], [place] [phone] PCP - General Family Medicine 11/17/20 Kun Cueva MD [address] [place] [address] Assigned PCP 11/21/20 Vonda Mendoza APRN MEAT PACKAGER [address] [facility], [place] [address] Nurse Practitioner Neurology 07/27/21 Kun Cueva MD [address] [facility] [address] [place] [address] Referring Physician Family Medicine 07/27/21 Heena Mederos, NIDHI [address] [place] [address] [place] [address] Assigned Neuroscience Provider 05/17/23 Albert Mix, DejaD [address] [address] Pharmacist Pharmacist 07/07/24 Albert Mix, DejaD [address] [address] Assigned MTM Pharmacist 07/13/24 [place] [address] ELFEGO PURCELL, [address] [address] Assigned Musculoskeletal Provider 08/13/24 documented as of this encounter
--- OUTSIDE RECORDS SUMMARY | 2024-10-19 19:36 | XMS_ITS | Encounter Summary ---
Author Organization [facility] Address [address] [place], [place] [address]e. [place] [address] Care Team Providers Care Block Splitter Operator Name Role Phone Kun Cueva MD Primary Care Provider Kun uCeva MD Unavailable [phone] Vonda Mendoza APRN MUCK HAULER Unavaila ble Kun Cueva MD Unavailable +[phone] Heena Mederos MUCK HAULER Unavailable [phone] Albert Mix PharmD Unavailable [phone] Albert Mix PharmD Unavailable [phone] Hector Vicente DO Unavailable [phone] Reason for Visit * Reason Onset Date Comments Referral 09/11/2024 Encounter Details Date Type Department Care Team (Late st Contact Info) Description 09/11/2024 Telephone [facility] [address] [place] [address] Kun Cueva MD [address] [place] [address] Referral Social History Tobacco Use Types Packs/Day Years [...] re latives? Once a week 07/20/2024 Attends Jewish Services Not on file 07/20 Active Member [...] Answer Date Recorded PHQ-2 Score 2 07/25/2024 [facility] of Occupat ional Health - Occupational Stress [...] Sex Assigned at Female 05/26/2019 4:02 PM COSMETIC SALES Legal Sex Female 5:12 AM COSMETIC SALES Gender Identity Female 05/26/2019 4:02 PM COSMETIC SALES Sexual Orientation Straight 05/26/2019 4: 02 PM COSMETIC SALES documented as of this encounter Miscellaneous Notes * Telephone Encounter - Kun Cueva MD - 09/12/2024 7:37 AM CDT Referral was done and faxed Kun Cueva MD * Telephone Encounter - Jazmyne Grover - 09/11/2024 4:40 PM CDT Order/Referral Request Who is requesting: Pt Orders being requested: Colonoscopy referral [facility] Reason service is needed/diagnosis: Pt needs referral sent to [facility] in order for Insurance to cover proocedure When are orders needed by: 09/12/24 8:30 am Has this been discussed with Provider: Yes Does patient have a preference on a Group/Provider/Facility? [facility] fax [phone] Does patient have an appointment scheduled?: Yes: 09/12/24 8:30 am Where to send orders: Place orders within Epic [facility] we [facility] or would you prefer to receive a phone call?: Patient would prefer a phone call AND MY CHART Okay to leave a detailed message?: Yes at Home number on file [phone] (home) documented in this encounter Plan of Treatment Upcoming Encounters Date Type Department Care Team (Late st Contact Info) Description 11/20/2024 3:00 PM CDT Virtual Visit [facility] [place] [address] [facility] [address] [place] [address] Harvey Corrales MD [address] [facility] 200 [place] [address] 07/27/2025 3:10 PM CDT Office Visit [facility] [address] [place] [address] Kun Cueva MD [address] [place] [address] documented as of this encounter Visit Diagnoses Not on filedocumented in this encounter Additional Health Concerns Assessment Noted Time PHQ-9 Depression Total Score: 5 07/26/19 25 8:44 AM CDT documented as of this encounter Care Teams Block Splitter Operator Relationship Specialty Start Date End Date Kun Cueva MD [address] [place] [address] PCP - General Family Medicine 11/17/20 Kun Cueva MD [address] [place] [address] Assigned PCP 11/21/20 Vonda Mendoza APRN MUCK HAULER [address] [facility] [id number] [place] [address] Nurse Practitioner Neurology 07/27/21 Kun Cueva MD 480 [facility] [address] [place] [address] Referring Physician Family Medicine 07/27/21 Heena Mederos CNP [address] [facility] [place] [address] Assigned Neuroscience Provider 05/17/23 Albert Mix, PharmD [address] [address] Pharmacist Pharmacist 07/07/24 Albert Mix, PharmD [address] [address] Assigned MTM Pharmacist 07/13/24 [place] [address] ELFEGO PURCELL, [address] [address] Assigned Musculoskeletal Provider 08/13/24 documented as of this encounter
--- OUTSIDE RECORDS SUMMARY | 2024-10-19 19:36 | XMS_ITS | Encounter Summary ---
Author Organization [place] Address [address] [place] [address] [place] [address] Care Team Providers Care Litigation Manager Name Role Phone Kun Cueva MD Primary Care Provider Kun Cueva MD Unavailable [phone] Vonda Mendoza APRN MACHINE BUFFER Unavaila ble Kun Cueva MD Unavailable [phone] Heena Mederos MACHINE BUFFER Unavailable [phone] Albert Mix PharmD Unavailable [phone] Albert Mix PharmD Unavailable [phone] Hector Vicente DO Unavailable [phone] Encounter Details Date Type Department Care Team (Late st Contact Info) Description 09/09/2024 MyC Medical Advice [facility] [address] [place] [phone] Kun Cueva MD [address] [place] [address] Social History Tobacco Use Types [...] re latives? Once a week 07/20/2024 Attends Muslim Services Not on file 07/20 Active Member [...] Answer Date Recorded PHQ-2 Score 2 07/25/2024 [facility] [place] of Occupat ional Health - Occupational Stress [...] Sex Assigned at Female 05/26/2019 4:02 PM SLIVER CHOPPER Legal Sex Female 5:12 AM SLIVER CHOPPER Gender Identity Female 05/26/2019 4:02 PM SLIVER CHOPPER Sexual Orientation Straight 05/26/2019 4: 02 PM SLIVER CHOPPER documented as of this encounter Miscellaneous Notes * Telephone Encounter - Jodi Mclean MA - 09/09/2024 2:35 PM CDT Patient see at [facility] on 09/07 for sore throat. Did labs for strep test and it was negative. Would you like patient to submit an evisit or come into clinic for ongoing sore throat? documented in this encounter Plan of Treatment Upcoming Encounters Date Type Department Care Team (Late st Contact Info) Description 11/20/2024 3:00 PM CDT Virtual Visit [facility] [address] [place] [address] Harvey Corrales MD [address] [place] [address] 200 [place] [address] 07/27/2025 3:10 PM CDT Office Visit [facility] [address] [place] [address] Kun Cueva MD [address] [place] [address] documented as of this encounter Visit Diagnoses Not on filedocumented in this encounter Additional Health Concerns Assessment Noted Time PHQ-9 Depression Total Score: 5 07/26/19 25 8:44 AM CDT documented as of this encounter Care Teams Litigation Manager Relationship Specialty Start Date End Date Kun Cueva MD [address] [place] [address] PCP - General Family Medicine 11/17/20 Kun Cueva MD [address] [facility] 96 [place] [address] Assigned PCP 11/21/20 Vonda Mendoza APRN MACHINE BUFFER [address] [place], [place] [address] [address] Nurse Practitioner Neurology 07/27/21 Kun Cueva MD [address] [facility] 96 [place] [address] Referring Physician Family Medicine 07/27/21 Heena Mederos CNP [address] [place] [address] JULIANA MCGEE [address] Assigned Neuroscience Provider 05/17/23 Albert Mix PharmD [address] [address] Pharmacist Pharmacist 07/07/24 Albert Mix PharmD [address] [address] Assigned MTM Pharmacist 07/13/24 [place] [address] ELFEGO PURCELL, [address] [address] Assigned Musculoskeletal Provider 08/13/24 documented as of this encounter
--- OUTSIDE RECORDS SUMMARY | 2024-10-19 19:36 | XMS_ITS | Encounter Summary ---
Author Organization [place] [facility] Address [address] [place] [address] Care Team Providers Care Double Needle Stitcher Name Role Phone Zeina Sosa MD Primary Care Provider + [phone] Jenny Ivey DO Primary Care Provider +[phone] Jenny Ivey DO Unavailable [phone] Kun Cueva MD Primary Care Provider [phone] Eladio Gomes DPM Unavailable [phone] Kun Cueva MD Unavailable [phone] Vonda Mendoza APRN MANAGER GENERATION Unavaila ble Kun Cueva MD Unavailable +[phone] Heena Mederos MANAGER GENERATION Unavailable [phone] Albert Mix PharmD Unavailable [phone] Albert Mix PharmD Unavailable [phone] Hector Vicente DO Unavailable [phone] Reason for Visit * Reason Onset Date Comments Refill Request 09/27/2018 Encounter Details Date Type Department Care Team (Late st Contact Info) Description 09/27/2018 MyC Refill Initial Department Zeina Sosa MD [address] [place], [place] [address] Refill Request Social History Tobacco Use Types Packs/Day Years Used Date Smoking Tobacco: Never Smokeless Tobacco: Never Alcohol Use Standard Drinks/Week Comments Yes 0 (1 standard drink = 0.6 oz pur e alcohol) AUDIT-C Answer Date Recorded Frequency of Alcohol Consumption 2-4 times a sun09/25/2018 Average Number of Drinks 1 or 2 019 Frequency of Binge Drinking Not on file 08/2018 Comments Unknown Sex and Gender Information Value Date Recorded Sex Assigned at Female 05/26/2019 4:02 PM ELEVATOR ERECTOR Legal Sex Female 5:12 AM ELEVATOR ERECTOR Gender Identity Female 05/26/2019 4:02 PM ELEVATOR ERECTOR Sexual Orientation Straight 05/26/2019 4: 02 PM ELEVATOR ERECTOR documented as of this encounter Plan of Treatment Upcoming Encounters Date Type Department Care Team (Late st Contact Info) Description 11/20/2024 3:00 PM CDT Virtual Visit [facility] [address] [place] [address] Harvey Corrales MD [address] [place] [address] 07/27/2025 3:10 PM CDT Office Visit [facility] [address] [place] [address] Kun Cueva MD [address] [place] [address] documented as of this encounter Visit Diagnoses Diagnosis MICHEAL (generalized anxiety disorder) Generalized anxiety disorder documented in this encounter Additional Health Concerns Infection Onset Date Last Indicated Resolved Time Rule Out COVID-19 08/19/2019 08/19/2019 09/18/2019 11:39 PM CDT Assessment Noted Time PHQ-9 Depression Total Score: 11 019 4:19 PM CDT documented as of this encounter Care Teams Double Needle Stitcher Relationship Specialty Start Date End Date Zeina Sosa MD PCP - General Family Practice 02/26/15 09/29/18 Jenny Ivey DO [address] [place] [address] PCP - General Internal Medicine 09/30/18 11/16/20 Kun Cueva MD [address] [place] [address] PCP - General Family Medicine 11/17/20 Jenny Ivey DO [address] [place] [address] Assigned PCP 09/05/18 11/20/20 Eladio Gomes DPM [address] [place] [address] Assigned Musculoskeletal Provider 11/21/20 05/19/22 Kun Cueva MD [address] [place] [address] Assigned PCP 11/21/20 Vonda Mendoza APRN MANAGER GENERATION [address] [place] [address] [address] Nurse Practitioner Neurology 07/27/21 Kun Cueva MD [address] [place] [address] Referring Physician Family Medicine 07/27/21 Heena Mederos CNP [address] [place] [address] JULIANA MCGEE [address] Assigned Neuroscience Provider 05/17/23 Albert Mix, PharmD [address] [address] Pharmacist Pharmacist 07/07/24 Albert Mix, Will [address] [address] Assigned [place] Pharmacist 07/13/24 [place] [address] ELFEGO PURCELL, [address] [address] Assigned Musculoskeletal Provider 08/13/24 documented as of this encounter
--- OUTSIDE RECORDS SUMMARY | 2024-10-19 19:36 | XMS_ITS | Encounter Summary ---
Author Organization [facility] Address [address] [place], [place] [address]. [place] [address] Care Team Providers Care Motion Picture Set Worker Name Role Phone Kun Cueva MD Primary Care Provider + [phone] Kun Cueva MD Unavailable [phone] Vonda Mendoza APRN FOOD SAFETY SPECIALIST Unavaila ble Kun Cueva MD Unavailable +[phone] Heena Mederos FOOD SAFETY SPECIALIST Unavailable [phone] Albert Mix PharmD Unavailable [phone] Albert Mix PharmD Unavailable [phone] Hector Vicente DO Unavailable [phone] Encounter Details Date Type Department Care Team (Latest Contact Info) Description 09/07/2024 Travel Social History Tobacco Use Types Packs/Day [...] re latives? Once a week 07/20/2024 Attends Mormonism Services Not on file 07/20 Active Member [...] Answer Date Recorded PHQ-2 Score 2 07/25/2024 [facility] - Occupational Stress Questionnaire Answer [...] in an abandoned building, in an overnight chcf, or couch-surfing.) Yes 07/20/2024 Are you worried [...] Sex Assigned at Female 05/26/2019 4:02 PM ZOOKEEPER Legal Sex Female 5:12 AM ZOOKEEPER Gender Identity Female 05/26/2019 4:02 PM ZOOKEEPER Sexual Orientation Straight 05/26/2019 4: 02 PM ZOOKEEPER documented as of this encounter Plan of Treatment Upcoming Encounters Date Type Department Care Team (Late st Contact Info) Description 11/20/2024 3:00 PM CDT Virtual Visit [facility] [address] [place] [address] Harvey Corrales MD [address] [place] [address] 07/27/2025 3:10 PM CDT Office Visit [facility] [address] [place] [address] Kun Cueva MD [address] [place] [address] documented as of this encounter Visit Diagnoses Not on filedocumented in this encounter Additional Health Concerns Assessment Noted Time PHQ-9 Depression Total Score: 5 07/26/19 25 8:44 AM CDT documented as of this encounter Care Teams Motion Picture Set Worker Relationship Specialty Start Date End Date Kun Cueva MD [address] [place], [place] [address] PCP - General Family Medicine 11/17/20 Kun Cueva MD [address] [place] [address] Assigned PCP 11/21/20 Vonda Mendoza APRN FOOD SAFETY SPECIALIST 9 [facility] [address] Nurse Practitioner Neurology 07/27/21 Kun Cueva MD 480 [facility] 96 [place] [address] Referring Physician Family Medicine 07/27/21 Heena Mederos, NIDHI [address] [place] [address] [place] [address] Assigned Neuroscience Provider 05/17/23 Albert Mix, DejaD [address] [address] Pharmacist Pharmacist 07/07/24 Albert Mix, DejaD [address] [address] Assigned MTM Pharmacist 07/13/24 [place] [address] ELFEGO PURCELL, [address] [address] Assigned Musculoskeletal Provider 08/13/24 documented as of this encounter
--- OUTSIDE RECORDS SUMMARY | 2024-10-19 19:36 | XMS_ITS | Encounter Summary ---
Author Organization [facility] Address [address] [place] [address] [place] [address] Care Team Providers Care Assistant Farm Operations Manager Name Role Phone Kun Cueva MD Primary Care Provider Kun Cueva MD Unavailable [phone] Vonda Mendoza APRN FLIGHT MANAGER Unavaila ble Kun Cueva MD Unavailable [phone] Heena Mederos FLIGHT MANAGER Unavailable [phone] Albert Mix PharmD Unavailable [phone] Albert Mix PharmD Unavailable [phone] Hector Vicente DO Unavailable [phone] Encounter Details Date Type Department Care Team (Late st Contact Info) Description 08/27/[address] [facility] [address] [place] [address] Kun Cueva MD [address] [place] [address] Social History Tobacco Use Types [...] re latives? Once a week 07/20/2024 Attends [employer] Services Not on file 07/20 Active Member [...] Answer Date Recorded PHQ-2 Score 2 07/25/2024 [facility] [place] of Occupat ional Health - Occupational Stress [...] in an abandoned building, in an overnight alf, or couch-surfing.) Yes 07/20/2024 Are you worried [...] Sex Assigned at Female 05/26/2019 4:02 PM WEAVE ROOM SUPERVISOR Legal Sex Female 5:12 AM WEAVE ROOM SUPERVISOR Gender Identity Female 05/26/2019 4:02 PM WEAVE ROOM SUPERVISOR Sexual Orientation Straight 05/26/2019 4: 02 PM WEAVE ROOM SUPERVISOR documented as of this encounter Plan of Treatment Upcoming Encounters Date Type Department Care Team (Late st Contact Info) Description 11/20/2024 3:00 PM CDT Virtual Visit [facility] [address] [address] Harvey Corrales MD [address] [place] [address] 07/27/2025 3:10 PM CDT Office Visit [facility] [address] [place] [address] Kun Cueva MD [address] [place] [address] documented as of this encounter Visit Diagnoses Not on filedocumented in this encounter Additional Health Concerns Assessment Noted Time PHQ-9 Depression Total Score: 5 07/26/19 25 8:44 AM CDT documented as of this encounter Care Teams Assistant Farm Operations Manager Relationship Specialty Start Date End Date Kun Cueva MD [address] [place] [address] PCP - General Family Medicine 11/17/20 Kun Cueva MD [address] [place] [address] Assigned PCP 11/21/20 Vonda Mendoza APRN FLIGHT MANAGER [address] [place] [address] [address] Nurse Practitioner Neurology 07/27/21 Kun Cueva MD 480 [facility] 96 [place] [address] Referring Physician Family Medicine 07/27/21 Heena Mederos CNP [address] [place] [address] [place] [address] Assigned Neuroscience Provider 05/17/23 Albert Mix, PharmD [address] [address] Pharmacist Pharmacist 07/07/24 Albert Mix PharmD [address] [address] Assigned MTM Pharmacist 07/13/24 [place] [address] ELFEGO PURCELL, [address] [address] Assigned Musculoskeletal Provider 08/13/24 documented as of this encounter
--- OUTSIDE RECORDS SUMMARY | 2024-10-19 19:36 | XMS_ITS | Encounter Summary ---
Author Organization [facility] Address [address] [place] [address]. [place] [address] Care Team Providers Care Pickler Helper Name Role Phone Zeina Sosa MD Primary Care Provider + [phone] Jenny Ivey DO Primary Care Provider [phone] Jenny Ivey DO Unavailable [phone] Kun Cueva MD Primary Care Provider + [phone] Eladio Gomes DPM Unavailable [phone] Kun Cueva MD Unavailable [phone] Vonda Mendoza APRN HEEL SEAT TRIMMER Unavaila ble Kun Cueva MD Unavailable +[phone] Heena Mederos HEEL SEAT TRIMMER Unavailable [phone] Albert Mix PharmD Unavailable [phone] Albert Mix PharmD Unavailable [phone] Hector Vicente DO Unavailable [phone] Encounter Details Date Type Department Care Team (Late st Contact Info) Description 03/14/2016 Records - [facility] CONVERSION Scan, Non-Provider Social History Tobacco Use Types Packs/Day Years Used Date Smoking Tobacco: Never Assessed Smokeless Tobacco: Never Comments Unknown Sex and Gender Information Value Date Recorded Sex Assigned at Female 05/26/2019 4:02 PM PRODUCT CONTROLLER Legal Sex Female 5:12 AM PRODUCT CONTROLLER Gender Identity Female 05/26/2019 4:02 PM PRODUCT CONTROLLER Sexual Orientation Straight 05/26/2019 4: 02 PM PRODUCT CONTROLLER documented as of this encounter Plan of Treatment Upcoming Encounters Date Type Department Care Team (Late st Contact Info) Description 11/20/2024 3:00 PM CDT Virtual Visit [facility] B[facility] [place] [address] [place] [address] [address] [place] [address] Harvey Corrales MD [address] [facility] 200 [place] [address] 07/27/2025 3:10 PM CDT Office Visit [facility] [address] [place] [address] Kun Cueva MD [address] [place] [address] documented as of this encounter Visit Diagnoses Not on filedocumented in this encounter Additional Health Concerns Infection Onset Date Last Indicated Resolved Time Rule Out COVID-19 08/19/2019 08/19/2019 09/18/2019 11:39 PM CDT documented as of this encounter Care Teams Pickler Helper Relationship Specialty Start Date End Date Zeina Sosa MD PCP - General Family Practice 02/26/15 09/29/18 Jenny Ivey DO 5[address] [place] [address] PCP - General Internal Medicine 09/30/18 11/16/20 Kun Cueva MD [address] [place] [address] PCP - General Family Medicine 11/17/20 Jenny Ivey DO [address] [place] [address] Assigned PCP 09/05/18 11/20/20 Eladio Gomes DPM [address] [facility] [address] [place] [address] Assigned Musculoskeletal Provider 11/21/20 05/19/22 Kun Cueva MD 480 [facility] [address] [place] [address] Assigned PCP 11/21/20 Vonda Mendoza APRN HEEL SEAT TRIMMER [address] [place] [address] [address] Nurse Practitioner Neurology 07/27/21 Kun Cueva MD [address] [place] [address] Referring Physician Family Medicine 07/27/21 Heena Mederos CNP [address] [place] [address] [place] [address] Assigned Neuroscience Provider 05/17/23 Albert Mix, PharmD [address] [address] Pharmacist Pharmacist 07/07/24 Albert Mix, PharmD [address] [address] Assigned MTM Pharmacist 07/13/24 [place] [address] ELFEGO PURCELL, [address] [address] Assigned Musculoskeletal Provider 08/13/24 documented as of this encounter
--- OUTSIDE RECORDS SUMMARY | 2024-10-19 19:36 | XMS_ITS | Encounter Summary ---
Author Organization [facility] Address [address] [place] [address] [place] [address] Care Team Providers Care Oriental Rug Stretcher Name Role Phone Kun Cueva MD Primary Care Provider [phone] Kun Cueva MD Unavailable [phone] Vonda Mendoza APRN HANDICRAFTS TEACHER Unavaila ble Kun Cueva MD Unavailable +[phone] Heena Mederos HANDICRAFTS TEACHER Unavailable +[phone] Albert Mix PharmD Unavailable [phone] Albert Mix PharmD Unavailable [phone] Hector Vicente DO Unavailable [phone] Encounter Details Date Type Department Care Team (Late st Contact Info) Description 08/27/2024 Results Follow-Up [facility] [address] [place] [address] Kun Cueva MD [address] [place] [address] Subj: Message about your results Social History Tobacco Use Types Packs/Day Years [...] re latives? Once a week 07/20/2024 Attends Anabaptist Services Not on file 07/20 Active Member [...] Answer Date Recorded PHQ-2 Score 2 07/25/2024 [facility] of Occupat ional Health - [...] [place], or couch-surfing.) Yes 07/20/2024 Are you worried [...] Sex Assigned at Female 05/26/2019 4:02 PM CHART READER Legal Sex Female 5:12 AM CHART READER Gender Identity Female 05/26/2019 4:02 PM CHART READER Sexual Orientation Straight 05/26/2019 4: 02 PM CHART READER documented as of this encounter Plan of Treatment Upcoming Encounters Date Type Department Care Team (Late st Contact Info) Description 11/20/2024 3:00 PM CDT Virtual Visit [facility] Bariat[facility] Care [address] [phone] Harvey Corrales MD [address] [place] [address] 07/27/2025 3:10 PM CDT Office Visit [facility] [address] [place] [address] Kun Cueva MD [address] [place], [place] [address] documented as of this encounter Visit Diagnoses Not on filedocumented in this encounter Additional Health Concerns Assessment Noted Time PHQ-9 Depression Total Score: 5 07/26/19 25 8:44 AM CDT documented as of this encounter Care Teams Oriental Rug Stretcher Relationship Specialty Start Date End Date Kun Cueva MD [address] [place] [address] PCP - General Family Medicine 11/17/20 Kun Cueva MD [address] [place] [address] Assigned PCP 11/21/20 Vonda Mendoza APRN HANDICRAFTS TEACHER [address] [place], [place] [address] [address] Nurse Practitioner Neurology 07/27/21 Kun Cueva MD [address] [place] [address] Referring Physician Family Medicine 07/27/21 Heena Mederos CNP [address] [place] [address] [place] [address] Assigned Neuroscience Provider 05/17/23 Albert Mix, DejaD [address] [address] Pharmacist Pharmacist 07/07/24 Albert Mix, Will [address] [address] Assigned MTM Pharmacist 07/13/24 [place] [address] ELFEGO UPRCELL, [address] [address] Assigned Musculoskeletal Provider 08/13/24 documented as of this encounter
--- OUTSIDE RECORDS SUMMARY | 2024-10-19 19:36 | XMS_ITS | Encounter Summary ---
Author Organization [facility] Address [address] [place], [place] [address]. [place] [address] Care Team Providers Care Dairy Lab Technician Name Role Phone Kun Cueva MD Primary Care Provider [phone] Kun Cueva MD Unavailable [phone] Vonda Mendoza APRN WELDER/FABRICATOR Unavaila ble Kun Cueva MD Unavailable [phone] Heena Mederos WELDER/FABRICATOR Unavailable [phone] Albert Mix PharmD Unavailable [phone] Albert Mix PharmD Unavailable [phone] Hector Vicente DO Unavailable [phone] Reason for Visit * Reason Onset Date Comments Refill Request 10/05/2024 Encounter Details Date Type Department Care Team (Late st Contact Info) Description 10/05/2024 Ben [facility] [address] [place] [phone] Harvey Corrales MD [address] [place] [address] Refill Request Social History Tobacco Use [...] Answer Date Recorded PHQ-2 Score 2 07/25/2024 [facility] of Occupat ional Health - Occupational Stress [...] in an abandoned building, in an overnight care home, or couch-surfing.) Yes 07/20/2024 Are you [...] Sex Assigned at Female 05/26/2019 4:02 PM TELESALES SPECIALIST Legal Sex Female 5:12 AM TELESALES SPECIALIST Gender Identity Female 05/26/2019 4:02 PM TELESALES SPECIALIST Sexual Orientation Straight 05/26/2019 4: 02 PM TELESALES SPECIALIST documented as of this encounter Plan of Treatment Upcoming Encounters Date Type Department Care Team (Late st Contact Info) Description 11/20/2024 3:00 PM CDT Virtual Visit [facility] Surgery Clinic and Bariatrics Care [address] [address] Harvey Corrales MD [address] [place] [address] 07/27/2025 3:10 PM CDT Office Visit [facility] [address] [place] [phone] Kun Cueva MD [address] [place], [place] [address] documented as of this encounter Visit Diagnoses Diagnosis History of obesity Personal history of other specified diseases Dyslipidemia Other and unspecified hyperlipidemia History of morbid obesity documented in this encounter Additional Health Concerns Assessment Noted Time PHQ-9 Depression Total Score: 5 07/26/19 25 8:44 AM CDT documented as of this encounter Care Teams Dairy Lab Technician Relationship Specialty Start Date End Date Kun Cueva MD [address] [place] [address] PCP - General Family Medicine 11/17/20 Kun Cueva MD [address] [place] [address] Assigned PCP 11/21/20 Vonda Mendoza APRN WELDER/FABRICATOR [address] [place] [address] Nurse Practitioner Neurology 07/27/21 Kun Cueva MD [address] [place] [address] Referring Physician Family Medicine 07/27/21 Heena Mederos CNP 0 [facility] JUL[place] MCGEE [address] Assigned Neuroscience Provider 05/17/23 Albert Mix, Will [address] [address] Pharmacist Pharmacist 07/07/24 Albert Mix PharmD [address] [address] Assigned MTM Pharmacist 07/13/24 [place] [address] [address] [place] [address] Assigned Musculoskeletal Provider 08/13/24 documented as of this encounter
--- OUTSIDE RECORDS SUMMARY | 2024-10-19 19:36 | XMS_ITS | Encounter Summary ---
Author Organization [facility] Address [address] [place], [place] [address]. [place] [address] Care Team Providers Care Fitness Worker Name Role Phone Kun Cueva MD Primary Care Provider Kun Cueva MD Unavailable [phone] Vonda Mendoza APRN ASSISTANT PLANT MANAGER Unavaila ble Kun Cueva MD Unavailable [phone] Heena Mederos ASSISTANT PLANT MANAGER Unavailable [phone] Albert Mix PharmD Unavailable [phone] Albert Mix PharmD Unavailable [phone] Hector Vicente DO Unavailable [phone] Encounter Details Date Type Department Care Team (Late st Contact Info) Description 09/16/2024 Tita Valdovinos [facility] [address] [place] [phone] Kun Cueva MD [address] [place] [address] Social History Tobacco Use Types [...] re latives? Once a week 07/20/2024 Attends Scientology Services Not on file 07/20 Active Member [...] Answer Date Recorded PHQ-2 Score 2 07/25/2024 [facility] [place] [facility] of Occupat ional Health - Occupational Stress [...] in an abandoned building, in an overnight intermediate, or couch-surfing.) Yes 07/20/2024 Are you worried [...] Sex Assigned at Female 05/26/2019 4:02 PM ADMINISTRATIVE SERVICES COORDINATOR Legal Sex Female 5:12 AM ADMINISTRATIVE SERVICES COORDINATOR Gender Identity Female 05/26/2019 4:02 PM ADMINISTRATIVE SERVICES COORDINATOR Sexual Orientation Straight 05/26/2019 4: 02 PM ADMINISTRATIVE SERVICES COORDINATOR documented as of this encounter Plan of Treatment Upcoming Encounters Date Type Department Care Team (Late st Contact Info) Description 11/20/2024 3:00 PM CDT Virtual Visit [facility] Surgery Clinic and Bariatrics Care [address] 200 [place] [address] Harvey Corrales MD [address] [place] [address] 07/27/2025 3:10 PM CDT Office Visit [facility] [address] [place] [address] Kun Cueva MD [address] [place] [address] documented as of this encounter Visit Diagnoses Diagnosis MICHEAL (generalized anxiety disorder) Generalized anxiety disorder Moderate episode of recurrent major depressive disorder (H) documented in this encounter Additional Health Concerns Assessment Noted Time PHQ-9 Depression Total Score: 5 07/26/19 25 8:44 AM CDT documented as of this encounter Care Teams Fitness Worker Relationship Specialty Start Date End Date Kun Cueva MD [address] [place] [address] PCP - General Family Medicine 11/17/20 Kun Cueva MD [address] [place] [address] Assigned PCP 11/21/20 Vonda Mendoza APRN ASSISTANT PLANT MANAGER [address] [place] [address] [address] Nurse Practitioner Neurology 07/27/21 Kun Cueva MD [address] [place] [address] Referring Physician Family Medicine 07/27/21 Heena Mederos, NIDHI [address] [place] [address] [place] [address] Assigned Neuroscience Provider 05/17/23 Albert Mix, DejaD [address] [address] Pharmacist Pharmacist 07/07/24 Albert Mix, Will [address] [address] Assigned MTM Pharmacist 07/13/24 [place] [address] ELFEGO PURCELL, [address] [address] Assigned Musculoskeletal Provider 08/13/24 documented as of this encounter
--- OUTSIDE RECORDS SUMMARY | 2024-10-19 19:36 | XMS_ITS | Encounter Summary ---
Author Organization [facility] Address [address] [place] [address]. [place] [address] Care Team Providers Care Electric Vehicle Electrician Name Role Phone Zeina Sosa MD Primary Care Provider + [phone] Jenny Ivey DO Primary Care Provider [phone] Jenny Ivey DO Unavailable [phone] Kun Cueva MD Primary Care Provider + [phone] Eladio Gomes DPM Unavailable [phone] Kun Cueva MD Unavailable [phone] Vonda Mendoza APRN MANAGER PEDIATRIC Unavaila ble Kun Cueva MD Unavailable [phone] Heena Mederos MANAGER PEDIATRIC Unavailable [phone] Albert Mix PharmD Unavailable [phone] Albert Mix PharmD Unavailable [phone] Hector Vicente DO Unavailable [phone] Encounter Details Date Type Department Care Team (Late st Contact Info) Description 11/05/2015 Records - [facility] CONVERSION Provider, Historical Social History Tobacco Use Types Packs/Day Years Used Date Smoking Tobacco: Never Assessed Smokeless Tobacco: Never Comments Unknown Sex and Gender Information Value Date Recorded Sex Assigned at Female 05/26/2019 4:02 PM REEL CART OPERATOR Legal Sex Female 5:12 AM REEL CART OPERATOR Gender Identity Female 05/26/2019 4:02 PM REEL CART OPERATOR Sexual Orientation Straight 05/26/2019 4: 02 PM REEL CART OPERATOR documented as of this encounter Plan of Treatment Upcoming Encounters Date Type Department Care Team (Late st Contact Info) Description 11/20/2024 3:00 PM CDT Virtual Visit [facility] Surgery Clinic and Bariatrics Care [place] [address] [place] [address] [address] [place] [phone] Harvey Corrales MD [address] [facility] 200 [place] [address] 07/27/2025 3:10 PM CDT Office Visit [facility] [address] [place] [address] Kun Cueva MD [address] [place] [address] documented as of this encounter Visit Diagnoses Not on filedocumented in this encounter Additional Health Concerns Infection Onset Date Last Indicated Resolved Time Rule Out COVID-19 08/19/2019 08/19/2019 09/18/2019 11:39 PM CDT documented as of this encounter Care Teams Electric Vehicle Electrician Relationship Specialty Start Date End Date Zeina Sosa MD PCP - General Family Practice 02/26/15 09/29/18 Jenny Ivey DO [address] [place] [address] PCP - General Internal Medicine 09/30/18 11/16/20 Kun Cueva MD [address] [place] [address] PCP - General Family Medicine 11/17/20 Jenny Ivey DO [address] [place] [address] Assigned PCP 09/05/18 11/20/20 Eladio Gomes DPM [address] [facility] [address] [place] [address] Assigned Musculoskeletal Provider 11/21/20 05/19/22 Kun Cueva MD [address] [facility] [address] [place] [address] Assigned PCP 11/21/20 Vonda Mendoza APRN MANAGER PEDIATRIC [address] [address] Nurse Practitioner Neurology 07/27/21 Kun Cueva MD [address] [place] [address] Referring Physician Family Medicine 07/27/21 Heena Mederos CNP [address] [place] [address] [place] [address] Assigned Neuroscience Provider 05/17/23 Albert Mix, PharmD [address] [address] Pharmacist Pharmacist 07/07/24 Albert Mix, PharmD [address] [address] Assigned MTM Pharmacist 07/13/24 [place] [address] ELFEGO PURCELL, [address] [address] Assigned Musculoskeletal Provider 08/13/24 documented as of this encounter
--- OUTSIDE RECORDS SUMMARY | 2024-10-19 19:36 | XMS_ITS | Encounter Summary ---
Author Organization [facility] Address [address] [place], [place] [address]. [place] [address] Care Team Providers Care Cutter Wet Machine Name Role Phone Kun Cueva MD Primary Care Provider [phone] Kun Cueva MD Unavailable [phone] Vonda Mendoza APRN MANGLE TENDER Unavaila ble Kun Cueva MD Unavailable [phone] Heena Mederos MANGLE TENDER Unavailable [phone] Albert Mix PharmD Unavailable [phone] Albert Mix PharmD Unavailable [phone] Hector Vicente DO Unavailable [phone] Encounter Details Date Type Department Care Team (Late st Contact Info) Description 09/29/2024 Ben Medical Adv[facility] Surgery Clinic and Bariatrics Care [address] [place] [phone] Harvey Corrales MD [address] [place] [address] Social History Tobacco Use Types Packs/Day [...] Answer Date Recorded PHQ-2 Score 2 07/25/2024 [facility] of Occupat ional Health - [...] in an abandoned building, in an overnight detention, or couch-surfing.) Yes 07/20/2024 Are you worried [...] Sex Assigned at Female 05/26/2019 4:02 PM BUILDING SERVICEMAN Legal Sex Female 5:12 AM BUILDING SERVICEMAN Gender Identity Female 05/26/2019 4:02 PM BUILDING SERVICEMAN Sexual Orientation Straight 05/26/2019 4: 02 PM BUILDING SERVICEMAN documented as of this encounter Plan of Treatment Upcoming Encounters Date Type Department Care Team (Late st Contact Info) Description 11/20/2024 3:00 PM CDT Virtual Visit [facility] Surgery Clinic and Bariatrics Care [address] [phone] Harvey Corrales MD [address] [place] [address] 07/27/2025 3:10 PM CDT Office Visit [facility] [address] [place] [address] Kun Cueva MD [address] [place], [place] [address] documented as of this encounter Visit Diagnoses Not on filedocumented in this encounter Additional Health Concerns Assessment Noted Time PHQ-9 Depression Total Score: 5 07/26/19 25 8:44 AM CDT documented as of this encounter Care Teams Cutter Wet Machine Relationship Specialty Start Date End Date Kun Cueva MD [address] [place] [address] PCP - General Family Medicine 11/17/20 Kun Cueva MD [address] [place] [address] Assigned PCP 11/21/20 Vonda Mendoza APRN MANGLE TENDER [address] [place] [id number] [address] Nurse Practitioner Neurology 07/27/21 Kun Cueva MD [address] [place] [address] Referring Physician Family Medicine 07/27/21 Heena Mederos CNP [address] [place] [address] [place] [address] Assigned Neuroscience Provider 05/17/23 Albert Mix, DejaD [address] [address] Pharmacist Pharmacist 07/07/24 Albert Mix, Will [address] [address] Assigned MTM Pharmacist 07/13/24 [place] [address] ELFEGO PURCELL, [address] [address] Assigned Musculoskeletal Provider 08/13/24 documented as of this encounter
--- OUTSIDE RECORDS SUMMARY | 2024-10-19 19:36 | XMS_ITS | Encounter Summary ---
Author Organization [facility] Address [address] [place], [place] [address]. [place] [address] Care Team Providers Care Elementary [employer] Reading Teacher Name Role Phone Kun Cueva MD Primary Care Provider [phone] Kun Cueva MD Unavailable [phone] Vonda Mendoza APRN DIRECTOR OF AGRONOMY Unavaila ble Kun Cueva MD Unavailable [phone] Heena Mederos DIRECTOR OF AGRONOMY Unavailable [phone] Albert Mix PharmD Unavailable [phone] Albert Mix PharmD Unavailable [phone] Hector Vicente DO Unavailable [phone] Encounter Details Date Type Department Care Team (Late st Contact Info) Description 10/02/2024 [facility] Only [facility] Surgery Clinic and Bariatrics Care [address] [place] [phone] Harvey Corrales MD [address] [place] [address] History of obesity (Primary Dx); Dyslipidemia; History of morbid obesity Social History Tobacco Use Types Packs/Day Years [...] Answer Date Recorded PHQ-2 Score 2 07/25/2024 [facility] of Occupat ional Health - Occupational Stress [...] in an abandoned building, in an overnight fpc, or couch-surfing.) Yes 07/20/2024 Are you worried [...] Sex Assigned at Female 05/26/2019 4:02 PM TRAILER ASSEMBLER Legal Sex Female 5:12 AM TRAILER ASSEMBLER Gender Identity Female 05/26/2019 4:02 PM TRAILER ASSEMBLER Sexual Orientation Straight 05/26/2019 4: 02 PM TRAILER ASSEMBLER documented as of this encounter Progress Notes * [facility] Corrales MD - 10/02/2024 1:38 PM CDT Some dose related diarrhea recently to Zepbound at the 12.5mg/week dose. Will reduce back and hold at the 10mg/week dose. Harvey Corrales MD documented in this encounter Plan of Treatment Upcoming Encounters Date Type Department Care Team (Late st Contact Info) Description 11/20/2024 3:00 PM CDT Virtual Visit [facility] Surgery Clinic and Bariatrics Care [address] [phone] Harvey Corrales MD [address] [place] [address] 07/27/2025 3:10 PM CDT Office Visit [address] [place] [phone] Kun Cueva MD [address] [place] [address] documented as of this encounter Visit Diagnoses Diagnosis History of obesity- Primary Personal history of other specified diseases Dyslipidemia Other and unspecified hyperlipidemia History of morbid obesity documented in this encounter Additional Health Concerns Assessment Noted Time PHQ-9 Depression Total Score: 5 07/26/19 25 8:44 AM CDT documented as of this encounter Care Teams Elementary School Reading Teacher Relationship Specialty Start Date End Date Kun Cueva MD [address] [facility] [address] [place] [address] PCP - General Family Medicine 11/17/20 Kun Cueva MD [address] [facility] [address] [place] [address] Assigned PCP 11/21/20 Vonda Mendoza APRN DIRECTOR OF AGRONOMY [address] [place] [address] Nurse Practitioner Neurology 07/27/21 Kun Cueva MD 480 [facility] [address] [place] [address] Referring Physician Family Medicine 07/27/21 Heena Mederos, NIDHI [address] [place] [address] JULIANA MCGEE [address] Assigned Neuroscience Provider 05/17/23 Albert Mix, DejaD [address] [address] Pharmacist Pharmacist 07/07/24 Albert Mix, Will [address] [address] Assigned MTM Pharmacist 07/13/24 [place] [address] ELFEGO PURCELL, [address] [address] Assigned Musculoskeletal Provider 08/13/24 documented as of this encounter
--- OUTSIDE RECORDS SUMMARY | 2024-10-19 19:36 | XMS_ITS | Encounter Summary ---
Author Organization [facility] Address [facility] [place] [address] Care Team Providers Care Looper Operator Name Role Phone Kun Cueva MD Primary Care Provider [phone] Kun Cueva MD Unavailable [phone] Vonda Mendoza APRN CEMENT BASED MATERIALS PUMP TENDER Unavaila ble Kun Cueva MD Unavailable [phone] Heena Mederos CEMENT BASED MATERIALS PUMP TENDER Unavailable [phone] Albert Mix PharmD Unavailable [phone] Albert Mix PharmD Unavailable [phone] Hector Vicente DO Unavailable [phone] Reason for Referral * Consultation (Routine: Next available opening) - Authorized Specialty Diagnoses / Procedures Referred By Contangel t Referred To Contact Diagnoses Special screening for malignant neoplasms, colon Kun Cueva MD [address] [place] [address] Phone: tel: fax: [facility] [address] [place] [address] Referral ID Status Reason Start Date Expiration Date V isits Requested Visits Authorized [id number] Authorized 09/12/2024 09/12/2025 1 1 Question Answer Service: Screening Sedation Concerns: No medical conditions affecting sedation Sedation Type: Moderate/Conscious Sedation Preferred Location: Other (External) - Use Comments Non-internal location selection reason: Location Scheduling Instructions: Please call to schedule your appointment Class External referral [5] Additional Information: Please fax to [facility] Comments Please be aware that coverage of these services is subject to the terms and limitations of your health insurance plan. Call member services at your health plan with any benefit or coverage questions. Please call to schedule your appointment Encounter Details Date Type Department Care Team (Late st Contact Info) Description 09/08/2024 [facility] Medical Advice [facility] [address] [place] [phone] Kun Cueva MD [address] [place], [place] [address] Special screening for malignant neoplasms, colon (Primary Dx) Social History Tobacco Use Types [...] re latives? Once a week 07/20/2024 Attends [employer] Services Not on file 07/20 Active Member [...] Answer Date Recorded PHQ-2 Score 2 07/25/2024 [facility] [place] of Occupat ional Health - Occupational Stress [...] in an abandoned building, in an overnight senior living, or couch-surfing.) Yes 07/20/2024 Are you worried [...] Sex Assigned at Female 05/26/2019 4:02 PM RAG CUTTING MACHINE OPERATOR Legal Sex Female 5:12 AM RAG CUTTING MACHINE OPERATOR Gender Identity Female 05/26/2019 4:02 PM RAG CUTTING MACHINE OPERATOR Sexual Orientation Straight 05/26/2019 4: 02 PM RAG CUTTING MACHINE OPERATOR documented as of this encounter Miscellaneous Notes * Telephone Encounter - Jodi Mclean MA - 09/12/2024 7:32 AM CDT Referral faxed * Telephone Encounter - Kun Cueva MD - 09/12/2024 7:26 AM CDT Generic orders placed for [facility] for [facility]. Please fax LISA documented in this encounter Plan of Treatment Upcoming Encounters Date Type Department Care Team (Late st Contact Info) Description 11/20/2024 3:00 PM CDT Virtual Visit [facility] and Bariatrics Care [address] 200 [place] [address] Harvey Corrales MD [address] [place] [address] 200 [place] [address] 07/27/2025 3:10 PM CDT Office Visit [facility] [address] [place] [address] Kun Cueva MD [address] [place], [place] [address] Scheduled Referrals Name Type Priority Associated Diagnoses Order Schedule Colonoscopy Screening Natural Sciences Professor Referral Referral Routine: Next available opening Special screening for malignant neoplasms, colon Expected: 09/12/2024 (Approximate), Expires: 09/12/2025 documented as of this encounter Visit Diagnoses Diagnosis Special screening for malignant neoplasms, colon- Primary documented in this encounter Additional Health Concerns Assessment Noted Time PHQ-9 Depression Total Score: 5 07/26/19 25 8:44 AM CDT documented as of this encounter Care Teams Looper Operator Relationship Specialty Start Date End Date Kun Cueva MD [address] [place] [address] PCP - General Family Medicine 11/17/20 Kun Cueva MD 480 [facility] [address] [place] [address] Assigned PCP 11/21/20 Vonda Mendoza APRN CEMENT BASED MATERIALS PUMP TENDER [address] [place] [address] [address] Nurse Practitioner Neurology 07/27/21 Kun Cueva MD [address] [facility] 96 [place] [address] Referring Physician Family Medicine 07/27/21 Heena Mederos CNP [address] [place] [address] [place] [address] Assigned Neuroscience Provider 05/17/23 Albert Mix, DejaD [address] [address] Pharmacist Pharmacist 07/07/24 Albert Mix PharmD [address] [address] Assigned MTM Pharmacist 07/13/24 [place] [address] ELFEGO PURCELL, [address] [address] Assigned Musculoskeletal Provider 08/13/24 documented as of this encounter
--- OUTSIDE RECORDS SUMMARY | 2024-10-19 19:36 | XMS_ITS | Encounter Summary ---
Author Organization [place] Address [address] [place], [place] [address]e. [place] [address] Care Team Providers Care Greenhouse Technician Name Role Phone Kun Cueva MD Primary Care Provider [phone] Kun Cueva MD Unavailable [phone] Vonda Mendoza APRN BILINGUAL SPEECH THERAPIST Unavaila ble Kun Cueva MD Unavailable [phone] Heena Mederos BILINGUAL SPEECH THERAPIST Unavailable [phone] Albert Mix PharmD Unavailable [phone] Albert Mix PharmD Unavailable [phone] Hector Vicente DO Unavailable [phone] Reason for Visit * Reason Onset Date Comments Refill Request 10/14/2024 Encounter Details Date Type Department Care Team (Late st Contact Info) Description 10/14/2024 [facility] [address] [place] [phone] Harvey Corrales MD [address] [place] [address] Refill Request Social History Tobacco Use [...] re latives? Once a week 07/20/2024 Attends [employer] Services Not on file 07/20 Active Member [...] Date Recorded PHQ-2 Score 2 07/25/2024 [facility] - Occupational [...] in an abandoned building, in an overnight correction, or couch-surfing.) Yes 07/20/2024 Are you worried [...] Sex Assigned at Female 05/26/2019 4:02 PM HEALTH PROGRAM ANALYST Legal Sex Female 5:12 AM HEALTH PROGRAM ANALYST Gender Identity Female 05/26/2019 4:02 PM HEALTH PROGRAM ANALYST Sexual Orientation Straight 05/26/2019 4: 02 PM HEALTH PROGRAM ANALYST documented as of this encounter Miscellaneous Notes * Telephone Encounter - Brenda Robles RN - 10/14/2024 12:10 PM CDT [facility] doesn't do the injectable medications. Needed to change pharmacies. Brenda Robles, RN documented in this encounter Plan of Treatment Upcoming Encounters Date Type Department Care Team (Late st Contact Info) Description 11/20/2024 3:00 PM CDT Virtual Visit [facility] Care [place] [address] [place] [phone] Harvey Corrales MD [address] [place] [address] 200 [place] [address] 07/27/2025 3:10 PM CDT Office Visit [place] [address] [place] [phone] Kun Cueva MD [address] [place] [address] documented as of this encounter Visit Diagnoses Diagnosis History of obesity Personal history of other specified diseases Dyslipidemia Other and unspecified hyperlipidemia History of morbid obesity documented in this encounter Additional Health Concerns Assessment Noted Time PHQ-9 Depression Total Score: 5 07/26/19 25 8:44 AM CDT documented as of this encounter Care Teams Greenhouse Technician Relationship Specialty Start Date End Date Kun Cueva MD [address] [place] [address] PCP - General Family Medicine 11/17/20 Kun Cueva MD [address] [place] [address] Assigned PCP 11/21/20 Vonda Mendoza APRN BILINGUAL SPEECH THERAPIST [address] [place], [place] [address], [place] [address] Nurse Practitioner Neurology 07/27/21 Kun Cueva MD [address] [place] [address] Referring Physician Family Medicine 07/27/21 Heena Mederos CNP [address] [place] [address] JULIANA MCGEE [address] Assigned Neuroscience Provider 05/17/23 Albert Mix, DejaD [address] [address] Pharmacist Pharmacist 07/07/24 Albert Mix PharmD [address] [address] Assigned MTM Pharmacist 07/13/24 [place] [address] ELFEGO PURCELL, [address] [address] Assigned Musculoskeletal Provider 08/13/24 documented as of this encounter
--- OUTSIDE RECORDS SUMMARY | 2024-10-19 19:37 | XMS_ITS | Encounter Summary ---
Author Organization [place] Address [address] [place], [place] [address]e. [place] [address] Care Team Providers Care Military Technology Specialist Name Role Phone Kun Cueva MD Primary Care Provider [phone] Kun Cueva MD Unavailable [phone] Vonda Mendoza APRN BEEF RIBBER Unavaila ble Kun Cueva MD Unavailable [phone] Heena Mederos BEEF RIBBER Unavailable [phone] Albert Mix PharmD Unavailable [phone] Albert Mix PharmD Unavailable [phone] Hector Vicente DO Unavailable [phone] Encounter Details Date Type Department Care Team (Late st Contact Info) Description 07/16/2023 MyC Medical Advice [facility]rics Care [address] 200 [place] [phone] Harvey Corrales MD [address] [place] [address] Social History Tobacco Use Types Packs/Day [...] re latives? Once a week 07/17/2023 Attends Scient[employer] Services Not on file 07/16 Active Member [...] 08/2018 PHQ-2 Answer Date Recorded PHQ-2 Score 3 05/28/2023 [facility] - Occupational Stress [...] in an abandoned building, in an overnight usp, or couch-surfing.) Yes 07/17/2023 Are you worried [...] getting things that you need? No 07/17/2023 Comments No Sex and Gender Information Value Date Recorded Sex Assigned at Female 05/26/2019 4:02 PM FOUNDRY PROCESS ENGINEER Legal Sex Female 5:12 AM FOUNDRY PROCESS ENGINEER Gender Identity Female 05/26/2019 4:02 PM FOUNDRY PROCESS ENGINEER Sexual Orientation Straight 05/26/2019 4: 02 PM FOUNDRY PROCESS ENGINEER documented as of this encounter Plan of Treatment Upcoming Encounters Date Type Department Care Team (Late st Contact Info) Description 11/20/2024 3:00 PM CDT Virtual Visit [facility] [address] [place] [address] Harvey Corrales MD [address] [place] [address] 07/27/2025 3:10 PM CDT Office Visit [facility] [address] [place] [address] Kun Cueva MD [address] [place] [address] documented as of this encounter Visit Diagnoses Not on filedocumented in this encounter Additional Health Concerns Assessment Noted Time PHQ-9 Depression Total Score: 10 024 9:14 AM FOUNDRY PROCESS ENGINEER documented as of this encounter Care Teams Military Technology Specialist Relationship Specialty Start Date End Date Kun Cueva MD [address] [place] [address] PCP - General Family Medicine 11/17/20 Kun Cueva MD [address] [place] [address] Assigned PCP 11/21/20 Vonda Mendoza APRN BEEF RIBBER [address] [facility] [address] Nurse Practitioner Neurology 07/27/21 Kun Cueva MD 480 [facility] [address] [place] [address] Referring Physician Family Medicine 07/27/21 Heena Mederos CNP [address] [place] [address] [place] [address] Assigned Neuroscience Provider 05/17/23 Albert Mix, PharmD [address] [id number] Pharmacist Pharmacist 07/07/24 Albert Mix, PharmD [address] [address] Assigned MTM Pharmacist 07/13/24 [place] [address] ELFEGO PURCELL, [address] [address] Assigned Musculoskeletal Provider 08/13/24 documented as of this encounter
--- OUTSIDE RECORDS SUMMARY | 2024-10-19 19:37 | XMS_ITS | Encounter Summary ---
Author Organization [facility] Address [address] [place] [address]. [place] [address] Care Team Providers Care Skiving Machine Operator Name Role Phone Zeina Sosa MD Primary Care Provider + [phone] Jenny Ivey DO Primary Care Provider [phone] Jenny Ivey DO Unavailable [phone] Kun Cueva MD Primary Care Provider + [phone] Eladio Gomes DPM Unavailable [phone] Kun Cueva MD Unavailable [phone] Vonda Mendoza APRN PROJECT INTERN Unavaila ble Kun Cueva MD Unavailable [phone] Heena Mederos PROJECT INTERN Unavailable [phone] Albert Mix PharmD Unavailable [phone] Albert Mix PharmD Unavailable [phone] Hector Vicente DO Unavailable [phone] Encounter Details Date Type Department Care Team (Late st Contact Info) Description 05/15/2016 Records - [facility] CONVERSION Scan, Non-Provider Social History Tobacco Use Types Packs/Day Years Used Date Smoking Tobacco: Never Assessed Smokeless Tobacco: Never Comments Unknown Sex and Gender Information Value Date Recorded Sex Assigned at Female 05/26/2019 4:02 PM DIESEL TRACTOR ENGINE MECHANIC Legal Sex Female 5:12 AM DIESEL TRACTOR ENGINE MECHANIC Gender Identity Female 05/26/2019 4:02 PM DIESEL TRACTOR ENGINE MECHANIC Sexual Orientation Straight 05/26/2019 4: 02 PM DIESEL TRACTOR ENGINE MECHANIC documented as of this encounter Plan of Treatment Upcoming Encounters Date Type Department Care Team (Late st Contact Info) Description 11/20/2024 3:00 PM CDT Virtual Visit [facility] Clinic and B[facility]rics [facility] [place] [address] [place] [address] [address] [place] [address] Harvey Corrales MD [address] [facility] 200 [place] [address] 07/27/2025 3:10 PM CDT Office Visit [facility] [address] [place] [address] Kun Cueva MD [address] [place] [address] documented as of this encounter Visit Diagnoses Not on filedocumented in this encounter Additional Health Concerns Infection Onset Date Last Indicated Resolved Time Rule Out COVID-19 08/19/2019 08/19/2019 09/18/2019 11:39 PM CDT documented as of this encounter Care Teams Skiving Machine Operator Relationship Specialty Start Date End Date Zeina Sosa MD PCP - General Family Practice 02/26/15 09/29/18 Jenny Ivey DO [address] [place] [address] PCP - General Internal Medicine 09/30/18 11/16/20 Kun Cueva MD [address] [place] [address] PCP - General Family Medicine 11/17/20 Jenny Ivey DO [address] [place] [address] Assigned PCP 09/05/18 11/20/20 Eladio Gomes DPM [address] [facility] [address] [place] [address] Assigned Musculoskeletal Provider 11/21/20 05/19/22 Kun Cueva MD 480 [facility] [address] [place] [address] Assigned PCP 11/21/20 Vonda Mendoza APRN PROJECT INTERN [address] [place] [address] [address] Nurse Practitioner Neurology 07/27/21 Kun Cueva MD [address] [place] [address] Referring Physician Family Medicine 07/27/21 Heena Mederos CNP [address] [place] [address] [place] [address] Assigned Neuroscience Provider 05/17/23 Albert Mix, PharmD [address] [address] Pharmacist Pharmacist 07/07/24 Albert Mix, PharmD [address] [address] Assigned MTM Pharmacist 07/13/24 [place] [address] ELFEGO PURCELL, [address] [address] Assigned Musculoskeletal Provider 08/13/24 documented as of this encounter
--- OUTSIDE RECORDS SUMMARY | 2024-10-19 19:37 | XMS_ITS | Encounter Summary ---
Author Organization [facility] Address [address] [place] [address]. [place] [address] Care Team Providers Care Data Collection Associate Name Role Phone Kun Cueva MD Primary Care Provider [phone] Kun Cueva MD Unavailable [phone] Vonda Mendoza APRN DISPENSER OPERATOR Unavaila ble Kun Cueva MD Unavailable [phone] Heena Mederos DISPENSER OPERATOR Unavailable [phone] Albert Mix PharmD Unavailable [phone] Albert Mix PharmD Unavailable [phone] Hector Vicente DO Unavailable [phone] Reason for Referral * Rehab Therapy Physical Therapy (Routine: Next available opening) - Closed Specialty Diagnoses / Procedures Referred By Austyn t Referred To Contact Diagnoses Acute bilateral low back pain with left-sided sciatica Left lumbar radiculopathy Chronic neck pain Cervical stenosis of spinal canal DDD (degenerative disc disease), cervical [address] [address] Phone: tel: Referral ID Status Reason Start Date Expiration Date Visits Re quested Visits Authorized [id number] Closed 12/21/2022 04/22/2023 12 365 Scheduling Instructions Physical and Occupational Therapy Order: Evaluate and Treat Treatment Goals: Improve posture Increase strength Decrease pain Increase ROM Improve function Exercise: As indicated by therapy evaluation *Establish home exercises for core strengthening and nerve glides Modalities: As indicated by therapy evaluation Procedures: As indicated by therapy evaluation Question Answer Preferred Location: [facility] Scheduling Instructions: If you have not heard from the scheduling office within 2 business days, please call [phone] for Bonifacio Boyer, for Stephanie and [phone] for [place]. Course of Action Evaluation and Treatment Adult or Pediatrics Adult Specialty Services: Per Associated Diagnosis Comments Please be aware that coverage of these services is subject to the terms and limitations of your health insurance plan. Call member services at your health plan with any benefit or coverage questions. If you have not heard from the scheduling office within 2 business days, please call [phone] for Bonifacio [employer] [place], for Stephanie and [phone] for [place]. Encounter Details Date Type Department Care Team (Late st Contact Info) Description 10/26/2022 MyC Medical Advice [employer] [facility] [address] [place] [phone] Heena Mederos CNP [address] [place] [address] [address] [place] [id number] Acute bilateral low back pain with left-sided sciatica (Primary Dx); Left lumbar radiculopathy; Chronic neck pain; Cervical stenosis of spinal canal; DDD (degenerative disc disease), cervical Social History Tobacco Use Types Packs/Day Years Used Date Smoking Tobacco: Never Passive Smoke Exposure: Yes Smokeless Tobacco: Never Alcohol Use Standard Drinks/Week Comments Yes 0 (1 standard drink = 0.6 oz pur e alcohol) socially AUDIT-C Answer Date Recorded Frequency of Alcohol Consumption 2-4 times a sun09/25/2018 Average Number of Drinks 1 or 2 019 Frequency of Binge Drinking Not on file 08/2018 PHQ-2 Answer Date Recorded PHQ-2 Score 2 07/27/2022 Comments No Sex and Gender Information Value Date Recorded Sex Assigned at Female 05/26/2019 4:02 PM MEDICARE INTERVIEWER Legal Sex Female 5:12 AM MEDICARE INTERVIEWER Gender Identity Female 05/26/2019 4:02 PM MEDICARE INTERVIEWER Sexual Orientation Straight 05/26/2019 4: 02 PM MEDICARE INTERVIEWER COVID-19 Exposure Response Date Recorded In the last 10 days, have yo u been in contact with someone who was confirmed or suspected to have Coronavirus/COVID-19? No / Unsure 10/16/2022 2:03 PM CDT documented as of this encounter Miscellaneous Notes * Telephone Encounter - Cirstofer Horne MA - 10/27/2022 9:30 AM CDT 05/03/22 Cervical and thoracic MRI ([facility]) has been pushed to [facility]. * Telephone Encounter - Cristofer Horne MA - 10/26/2022 2:42 PM CDT I called [facility] to push over images. E-mail was sent to [facility]. documented in this encounter Plan of Treatment Upcoming Encounters Date Type Department Care Team (Late st Contact Info) Description 11/20/2024 3:00 PM CDT Virtual Visit [facility] Surgery Clinic and Bariatrics Care [address] [place] [phone] Harvey Corrales MD [address] [place] [address] 07/27/2025 3:10 PM CDT Office Visit [facility] [address] [place] [phone] Kun Cueva MD [address] [place] [address] Scheduled Referrals Name Type Priority Associated Diagnoses Orde r Schedule Physical Therapy Referral Referral Routine: Next available opening Acute bilateral low back pain with left-sided sciatica Left lumbar radiculopathy Chronic neck pain Cervical stenosis of spinal canal DDD (degenerative disc disease), cervical Expected: 10/26/2022 (Approximate), Expires: 10/27/2023 documented as of this encounter Visit Diagnoses Diagnosis Acute bilateral low back pain with left-sided sciatica- Primary Left lumbar radiculopathy Thoracic or lumbosacral neuritis or radiculitis, unspecified Chronic neck pain Cervicalgia Cervical stenosis of spinal canal Spinal stenosis in cervical region DDD (degenerative disc disease), cervical Degeneration of cervical intervertebral disc documented in this encounter Additional Health Concerns Assessment Noted Time PHQ-9 Depression Total Score: 7 07/28/19 23 10:55 AM CDT documented as of this encounter Care Teams Data Collection Associate Relationship Specialty Start Date End Date Kun Cueva MD [address] [address] PCP - General Family Medicine 11/17/20 Kun Cueva MD [address] [address] Assigned PCP 11/21/20 Vonda Mendoza APRN DISPENSER OPERATOR [address] [place], [place] [address], [place] [address] Nurse Practitioner Neurology 07/27/21 Kun Cueva MD [address] [address] Referring Physician Family Medicine 07/27/21 Heena Mederos CNP [address] [place] [address] JULIANA MCGEE [address] Assigned Neuroscience Provider 05/17/23 Albert Mix, PharmD [address] [address] Pharmacist Pharmacist 07/07/24 Albert Mix, DejaD [address] [address] Assigned MTM Pharmacist 07/13/24 [place] [address] ELFEGO PURCELL, [address] [address] Assigned Musculoskeletal Provider 08/13/24 documented as of this encounter
--- OUTSIDE RECORDS SUMMARY | 2024-10-19 19:37 | XMS_ITS | Encounter Summary ---
Author Organization [place] Address [facility] [place] [address] Care Team Providers Care Behavioral Health Director Name Role Phone Jenny Ivey DO Primary Care Provider [phone] Jenny Ivey DO Unavailable [phone] Kun Cueva MD Primary Care Provider [phone] Eladio Gomes DPM Unavailable [phone] Kun Cueva MD Unavailable [phone] Vonda Mendoza APRN SENIOR ARCHITECT/DESIGN MANAGER Unavaila ble Kun Cueva MD Unavailable [phone] Heena Mederos SENIOR ARCHITECT/DESIGN MANAGER Unavailable [phone] Albert Mix PharmD Unavailable [phone] Albert Mix PharmD Unavailable [phone] Hector Vicente DO Unavailable [phone] Reason for Visit * Reason Comments Medication Refill Propranolol Encounter Details Date Type Department Care Team (Late st Contact Info) Description 12/24/2019 Refill [facility] [address] [place] [phone] Laith Godinez MD XXX RESIGNED INACTIVE JULY 2021 [facility], [id number] Medication Refill (Propranolol ) Social History Tobacco Use Types Packs/Day Years [...] PHQ-2 Answer Date Recorded PHQ-2 Score 2 05/27/2019 Comments Unknown Sex and Gender Information Value Date Recorded Sex Assigned at Female 05/26/2019 4:02 PM AREA SUPERVISOR Legal Sex Female 5:12 AM AREA SUPERVISOR Gender Identity Female 05/26/2019 4:02 PM AREA SUPERVISOR Sexual Orientation Straight 05/26/2019 4: 02 PM AREA SUPERVISOR documented as of this encounter Miscellaneous Notes * Telephone Encounter - Kristine Bergman RN - 12/25/2019 11:35 AM CDT Routing refill request to provider for review/approval because: Drug interaction warning HIGH * Telephone Encounter - June Martinez - 12/25/2019 8:57 AM CDT Requested Prescriptions Pending Prescriptions Disp Refills ??? propranolol ER (INDERAL LA) 80 MG 24 hr capsule [Pharmacy Med Name: Propranolol HCl ER 80 MG Oral Capsule Extended Release 24 Hour] 90 capsule 0 Sig: Take 1 capsule by mouth once daily Beta-Blockers Protocol Passed - 12/24/2019 7:36 PM Passed - Blood pressure under 140/90 in past 12 months BP Readings from Last 3 Encounters: 05/27/19 122/84 11/22/18 104/64 09/25/18 102/64 Passed - Patient is age 6 or older Passed - Recent (12 mo) or future (30 days) visit within the authorizing provider's specialty Patient has had an office visit with the authorizing provider or a provider within the authorizing providers department within the previous 12 mos or has a future within next 30 days. See Patient Info tab in inbasket, or Choose Columns in Meds & Orders section of the refill encounter. Passed - Medication is active on med list documented in this encounter Plan of Treatment Upcoming Encounters Date Type Department Care Team (Late st Contact Info) Description 11/20/2024 3:00 PM CDT Virtual Visit [facility] and B[facility]rics Care [place] [address] [facility] 200 [place] [phone] Harvey Corrales MD 29[address] [facility] 200 [place] [address] 07/27/2025 3:10 PM CDT Office Visit [facility] [address] [place] [address] Kun Cueva MD [address] [place], [place] [phone] documented as of this encounter Visit Diagnoses Diagnosis MICHEAL (generalized anxiety disorder) Generalized anxiety disorder documented in this encounter Additional Health Concerns Assessment Noted Time PHQ-9 Depression Total Score: 8 11/10/19 20 7:08 AM CDT documented as of this encounter Care Teams Behavioral Health Director Relationship Specialty Start Date End Date Jenny Ivey DO [address] [place] [address] PCP - General Internal Medicine 09/30/18 11/16/20 Kun Cueva MD [address] [place] [address] PCP - General Family Medicine 11/17/20 Jenny Ivey DO [address] [place] [address] Assigned PCP 09/05/18 11/20/20 Eladio Gomes DPM [facility]5 [facility] [address] [place] [address] Assigned Musculoskeletal Provider 11/21/20 05/19/22 Kun Cueva MD [address] [address] Assigned PCP 11/21/20 Vonda Mendoza APRN SENIOR ARCHITECT/DESIGN MANAGER [address] [place] [address] [address] Nurse Practitioner Neurology 07/27/21 Kun Cueva MD [address] [address] Referring Physician Family Medicine 07/27/21 Heena Mederos CNP [address] [facility] [place] [address] Assigned Neuroscience Provider 05/17/23 Albert Mix, DejaD [address] [address] Pharmacist Pharmacist 07/07/24 Albert Mix PharmD [address] [address] Assigned MTM Pharmacist 07/13/24 [place] [address] ELFEGO PURCELL, [address] [address] Assigned Musculoskeletal Provider 08/13/24 documented as of this encounter
--- OUTSIDE RECORDS SUMMARY | 2024-10-19 19:37 | XMS_ITS | Encounter Summary ---
Author Organization [place] Address [address] [place], [place] [address]. [place] [address] Care Team Providers Care Software Packager Name Role Phone Kun Cueva MD Primary Care Provider + [phone] Kun Cueva MD Unavailable [phone] Vonda Mendoza APRN ASSISTANT TRACK AND FIELD COACH Unavaila ble Kun Cueva MD Unavailable +[phone] Heena Mederos ASSISTANT TRACK AND FIELD COACH Unavailable +[phone] Albert Mix PharmD Unavailable +[phone] Albert Mix PharmD Unavailable +[phone] Hector Vicente DO Unavailable [phone] Encounter Details Date Type Department Care Team (Late st Contact Info) Description 01/29/2023 Ben Medical Advice [facility] Spine and Neurosurgery [address] [place] [phone] Cristofer Horne Social History Tobacco Use Types Packs/Day Years [...] Answer Date Recorded PHQ-2 Score 2 07/27/2022 Adolescent Education Answer Date Record ed Getting School Help Needed Not on file 01/15 Comments No Sex and Gender Information Value Date Recorded Sex Assigned at Female 05/26/2019 4:02 PM PHARMACIST HOSPITAL Legal Sex Female 5:12 AM PHARMACIST HOSPITAL Gender Identity Female 05/26/2019 4:02 PM PHARMACIST HOSPITAL Sexual Orientation Straight 05/26/2019 4: 02 PM PHARMACIST HOSPITAL COVID-19 Exposure Response Date Recorded In the last 10 days, have yo u been in contact with someone who was confirmed or suspected to have Coronavirus/COVID-19? No / Unsure 01/16/2023 1:16 PM CDT documented as of this encounter Plan of Treatment Upcoming Encounters Date Type Department Care Team (Late st Contact Info) Description 11/20/2024 3:00 PM CDT Virtual Visit [facility] Surgery Clinic and Bariatrics Care [address] [place] [address] Harvey Corrales MD [address] [place] [address] 200 [place] [address] 07/27/2025 3:10 PM CDT Office Visit [facility] [address] [place] [address] Kun Cueva MD [address] [place] [address] documented as of this encounter Visit Diagnoses Not on filedocumented in this encounter Additional Health Concerns Assessment Noted Time PHQ-9 Depression Total Score: 7 07/28/19 23 10:55 AM CDT documented as of this encounter Care Teams Software Packager Relationship Specialty Start Date End Date Kun Cueva MD [address] [place] [address] PCP - General Family Medicine 11/17/20 Kun Cueva MD [address] [place] [address] Assigned PCP 11/21/20 Vonda Mendoza APRN ASSISTANT TRACK AND FIELD COACH [address] [facility] [place] [address] Nurse Practitioner Neurology 07/27/21 Kun Cueva MD [address] [place] [address] Referring Physician Family Medicine 07/27/21 Heena Mederos, NIDHI [address] [place] [address] [place] [address] Assigned Neuroscience Provider 05/17/23 Albert Mix, DejaD [address] [id number] Pharmacist Pharmacist 07/07/24 Albert Mix, Will [address] [address] Assigned MTM Pharmacist 07/13/24 [place] [address] ELFEGO PURCELL, [address] [address] Assigned Musculoskeletal Provider 08/13/24 documented as of this encounter
--- OUTSIDE RECORDS SUMMARY | 2024-10-19 19:37 | XMS_ITS | Encounter Summary ---
Author Organization [place] Address [address] [place] [address]. [place] [address] Care Team Providers Care Sock Examiner Name Role Phone Jenny Ivey DO Primary Care Provider + [phone] Jenny Ivey DO Unavailable [phone] Kun Cueva MD Primary Care Provider [phone] Eladio Gomes DPM Unavailable +[phone] Kun Cueva MD Unavailable +[phone] Vonda Mendoza APRN FORKLIFT TRUCK MECHANIC Unavaila ble Kun Cueva MD Unavailable +[phone] Heena Mederos FORKLIFT TRUCK MECHANIC Unavailable +[phone] Albert Mix PharmD Unavailable +[phone] Albert Mix PharmD Unavailable +[phone] Hector Vicente DO Unavailable [phone] Encounter Details Date Type Department Care Team (Late st Contact Info) Description 08/21/2019 [facility] [address] [place] [phone] Jenny Ivey DO [address] [place], [place] [phone] Social History Tobacco Use Types Packs/Day Years [...] Sex Assigned at Female 05/26/2019 4:02 PM HEAD KILN OPERATOR Legal Sex Female 5:12 AM HEAD KILN OPERATOR Gender Identity Female 05/26/2019 4:02 PM HEAD KILN OPERATOR Sexual Orientation Straight 05/26/2019 4: 02 PM HEAD KILN OPERATOR COVID-19 Exposure Response Date Recorded In the last month, have you been in contact with someone who was confirmed or suspected to have Coronavirus / COVID-19? No / Unsure 08/19/2019 6:45 AM CDT documented as of this encounter Plan of Treatment Upcoming Encounters Date Type Department Care Team (Late st Contact Info) Description 11/20/2024 3:00 PM CDT Virtual Visit [facility] Surgery Clinic and Bariatrics Care [address] [phone] Harvey Corrales MD [address] [place] [address] 07/27/2025 3:10 PM CDT Office Visit [facility] [address] [place] [address] Kun Cueva MD [address] [place], [place] [phone] documented as of this encounter Visit Diagnoses Not on filedocumented in this encounter Additional Health Concerns Infection Onset Date Last Indicated Resolved Time Rule Out COVID-19 08/19/2019 08/19/2019 09/18/2019 11:39 PM CDT Assessment Noted Time PHQ-9 Depression Total Score: 7 05/27/19 20 4:19 PM HEAD KILN OPERATOR documented as of this encounter Care Teams Sock Examiner Relationship Specialty Start Date End Date Jenny Ivey DO [address] [place] [address] PCP - General Internal Medicine 09/30/18 11/16/20 Kun Cueva MD [address] [place] [address] PCP - General Family Medicine 11/17/20 Jenny Ivey DO [address] [place] [address] Assigned PCP 09/05/18 11/20/20 Eladio Gomes DPM [address] [place] [address] Assigned Musculoskeletal Provider 11/21/20 05/19/22 Kun Cueva MD [address] [place] [address] Assigned PCP 11/21/20 Vonda Mendoza APRN FORKLIFT TRUCK MECHANIC [address] [place] [address] [address] Nurse Practitioner Neurology 07/27/21 Kun Cueva MD [address] [place] [address] Referring Physician Family Medicine 07/27/21 Heena Mederos, NIDHI [address] [place] [address] JULIANA MCGEE [address] Assigned Neuroscience Provider 05/17/23 Albert Mix, DejaD [address] [address] Pharmacist Pharmacist 07/07/24 Albert Mix, Will [address] [address] Assigned [place] Pharmacist 07/13/24 [place] [address] ELFEGO PURCELL, [address] [address] Assigned Musculoskeletal Provider 08/13/24 documented as of this encounter
--- OUTSIDE RECORDS SUMMARY | 2024-10-19 19:37 | XMS_ITS | Encounter Summary ---
Author Organization [place] Address Replaced by [facility] [place] [address] Care Team Providers Care Pipe Manufacture Supervisor Name Role Phone Jenny Ivey DO Primary Care Provider [phone] Jenny Ivey DO Unavailable [phone] Kun Cueva MD Primary Care Provider [phone] Eladio Gomes DPM Unavailable +[phone] Kun Cueva MD Unavailable [phone] Vonda Mendoza APRN AFRICANA STUDIES PROFESSOR Unavaila ble Kun Cueva MD Unavailable +[phone] Heena Mederos AFRICANA STUDIES PROFESSOR Unavailable +[phone] Albert Mix PharmD Unavailable +[phone] Albert Mix PharmD Unavailable + [phone] Hector Vicente DO Unavailable [phone] Encounter Details Date Type Department Care Team (Late st Contact Info) Description 02/18/2019 Ben Medical Advice [facility] [address] [place] [phone] Lauren Salamanca, ACTIVITY DIRECTOR Social History Tobacco Use Types Packs/Day Years [...] 08/2018 PHQ-2 Answer Date Recorded PHQ-2 Score 1 02/12/2019 Comments Unknown Sex and Gender Information Value Date Recorded Sex Assigned at Female 05/26/2019 4:02 PM COMMERCIAL LOAN COLLECTION OFFICER Legal Sex Female 5:12 AM COMMERCIAL LOAN COLLECTION OFFICER Gender Identity Female 05/26/2019 4:02 PM COMMERCIAL LOAN COLLECTION OFFICER Sexual Orientation Straight 05/26/2019 4: 02 PM COMMERCIAL LOAN COLLECTION OFFICER documented as of this encounter Plan of Treatment Upcoming Encounters Date Type Department Care Team (Late st Contact Info) Description 11/20/2024 3:00 PM CDT Virtual Visit [facility] Surgery Clinic and Bariatrics Care [address] [place] [phone] Harvey Corrales MD [address] [place] [address] 07/27/2025 3:10 PM CDT Office Visit [facility] [address] [place] [address] Kun Cueva MD [address] [place] [address] documented as of this encounter Visit Diagnoses Not on filedocumented in this encounter Additional Health Concerns Infection Onset Date Last Indicated Resolved Time Rule Out COVID-19 08/19/2019 08/19/2019 09/18/2019 11:39 PM CDT Assessment Noted Time PHQ-9 Depression Total Score: 7 02/13/20 19 7:04 AM CDT documented as of this encounter Care Teams Pipe Manufacture Supervisor Relationship Specialty Start Date End Date Jenny Ivey DO [address] [place] [address] PCP - General Internal Medicine 09/30/18 11/16/20 Kun Cueva MD [address] [place] [address] PCP - General Family Medicine 11/17/20 Jenny Ivey DO [address] [place] [address] Assigned PCP 09/05/18 11/20/20 Eladio Gomes DPM 2945 [facility] 200[place] [address] Assigned Musculoskeletal Provider 11/21/20 05/19/22 Kun Cueva MD [address] [place] [address] Assigned PCP 11/21/20 Vonda Mendoza APRN AFRICANA STUDIES PROFESSOR [address] [place] [address] Nurse Practitioner Neurology 07/27/21 Kun Cueva MD [address] [place] [address] Referring Physician Family Medicine 07/27/21 Heena Mederos, NIDHI [address] [place] [address] JUL[place] MCGEE [address] Assigned Neuroscience Provider 05/17/23 Albert Mix, PharmD [address] [address] Pharmacist Pharmacist 07/07/24 Albert Mix, PharmD [address] [address] Assigned MTM Pharmacist 07/13/24 [place] [address] ELFEGO PURCELL, [address] [address] Assigned Musculoskeletal Provider 08/13/24 documented as of this encounter
--- OUTSIDE RECORDS SUMMARY | 2024-10-19 19:37 | XMS_ITS | Encounter Summary ---
Author Organization [place] Address [facility] [place] [address] Care Team Providers Care Snow Remover Name Role Phone Jenny Ivey DO Primary Care Provider [phone] Jenny Ivey DO Unavailable [phone] Kun Cueva MD Primary Care Provider [phone] Eladio Gomes DPM Unavailable +[phone] Kun Cueva MD Unavailable +[phone] Vonda Mendoza APRN INTEGRATED CIRCUIT IC LAYOUT DESIGNER Unavaila ble Kun Cueva MD Unavailable +[phone] Heena Mederos INTEGRATED CIRCUIT IC LAYOUT DESIGNER Unavailable +[phone] Albert Mix PharmD Unavailable [phone] Albert Mix PharmD Unavailable + [phone] Hector Vicente DO Unavailable [phone] Encounter Details Date Type Department Care Team (Late st Contact Info) Description 02/20/2019 Ben Medical [facility] [address] [place] [phone] Silvia Douglass CMA Social History Tobacco Use Types Packs/Day Years [...] Sex Assigned at Female 05/26/2019 4:02 PM COAL PULVERIZING OPERATOR Legal Sex Female 5:12 AM COAL PULVERIZING OPERATOR Gender Identity Female 05/26/2019 4:02 PM COAL PULVERIZING OPERATOR Sexual Orientation Straight 05/26/2019 4: 02 PM COAL PULVERIZING OPERATOR documented as of this encounter Plan of Treatment Upcoming Encounters Date Type Department Care Team (Late st Contact Info) Description 11/20/2024 3:00 PM CDT Virtual Visit [facility] Surgery Clinic and Bariatrics Care [address] [place] [phone] Harvey Corrales MD [address] [place] [address] 07/27/2025 3:10 PM CDT Office Visit [facility] [address] [place] [address] Kun Cueva MD [address] [place] [address] documented as of this encounter Visit Diagnoses Not on filedocumented in this encounter Additional Health Concerns Infection Onset Date Last Indicated Resolved Time Rule Out COVID-19 08/19/2019 08/19/2019 09/18/2019 11:39 PM CDT Assessment Noted Time PHQ-9 Depression Total Score: 7 02/13/20 19 7:04 AM CDT documented as of this encounter Care Teams Snow Remover Relationship Specialty Start Date End Date Jenny Ivey DO [address] [place] [address] PCP - General Internal Medicine 09/30/18 11/16/20 Kun Cueva MD [address] [place] [address] PCP - General Family Medicine 11/17/20 Jenny Ivey DO [address] [place] [address] Assigned PCP 09/05/18 11/20/20 Eladio Gomes DPM 2945 [facility] 200[place] [address] Assigned Musculoskeletal Provider 11/21/20 05/19/22 Kun Cueva MD [address] [place] [address] Assigned PCP 11/21/20 Vonda Mendoza APRN INTEGRATED CIRCUIT IC LAYOUT DESIGNER [address] [place] [address] Nurse Practitioner Neurology 07/27/21 Kun Cueva MD [address] [place] [address] Referring Physician Family Medicine 07/27/21 Heena Mederos, NIDHI [address] [place] [address] JULIANA MCGEE [address] Assigned Neuroscience Provider 05/17/23 Albert Mix, PharmD [address] [address] Pharmacist Pharmacist 07/07/24 Albert Mix, PharmD [address] [address] Assigned MTM Pharmacist 07/13/24 [place] [address] ELFEGO PURCELL, [address] [address] Assigned Musculoskeletal Provider 08/13/24 documented as of this encounter
--- OUTSIDE RECORDS SUMMARY | 2024-10-19 19:37 | XMS_ITS | Encounter Summary ---
Author Organization [place] Address [address] [place] [address]. [place] [address] Care Team Providers Care Inspector Poising Name Role Phone Jenny Ivey DO Primary Care Provider [phone] Jenny Ivey DO Unavailable [phone] Kun Cueva MD Primary Care Provider [phone] Eladio Gomes DPM Unavailable +[phone] Kun Cueva MD Unavailable +[phone] Vonda Mendoza APRN CHEMIST PHYSICAL Unavaila ble Kun Cueva MD Unavailable +[phone] Heena Mederos CHEMIST PHYSICAL Unavailable +[phone] Albert Mix PharmD Unavailable +[phone] Albert Mix PharmD Unavailable +[phone] Hector Vicente DO Unavailable [phone] Encounter Details Date Type Department Care Team (Late st Contact Info) Description 03/05/2019 Ben Medical [facility] [address] [place] [phone] Jenny Ivey DO [address] [place], [place] [phone] Insomnia, unspecified type (Primary Dx) Social History Tobacco Use Types [...] Sex Assigned at Female 05/26/2019 4:02 PM LIBRARY MEDIA SPECIALIST Legal Sex Female 5:12 AM LIBRARY MEDIA SPECIALIST Gender Identity Female 05/26/2019 4:02 PM LIBRARY MEDIA SPECIALIST Sexual Orientation Straight 05/26/2019 4: 02 PM LIBRARY MEDIA SPECIALIST documented as of this encounter Miscellaneous Notes * Telephone Encounter - Jenny Ivey DO - 03/05/2019 2:27 PM LIBRARY MEDIA SPECIALIST Refill sent to the pharmacy ARY MEDIA SPECIALIST * Telephone Encounter - Leilani [place] RN - 03/05/2019 10:03 AM LIBRARY MEDIA SPECIALIST Routing refill request to provider for review/approval because: Medication is reported/historical ARTURO 11/22/18 with PCP. Patient requesting 100 mg and 90 day supply. LUZMARIA Wagoner, RN ARY MEDIA SPECIALIST documented in this encounter Plan of Treatment Upcoming Encounters Date Type Department Care Team (Late st Contact Info) Description 11/20/2024 3:00 PM CDT Virtual Visit [facility] Surgery Clinic and Bariatrics Care [place] [address] [place] [address] [place] [phone] Harvey Corrales MD [address] [place] [address] 07/27/2025 3:10 PM CDT Office Visit [address] [place] [address] Kun Cueva MD [address] [place] [address] documented as of this encounter Visit Diagnoses Diagnosis Insomnia, unspecified type- Primary documented in this encounter Additional Health Concerns Infection Onset Date Last Indicated Resolved Time Rule Out COVID-19 08/19/2019 08/19/2019 09/18/2019 11:39 PM CDT Assessment Noted Time PHQ-9 Depression Total Score: 7 02/13/20 7:04 AM CDT documented as of this encounter Care Teams Inspector Poising Relationship Specialty Start Date End Date Jenny Ivey DO [address] [place] [address] PCP - General Internal Medicine 09/30/18 11/16/20 Kun Cueva MD [address] [address] PCP - General Family Medicine 11/17/20 Jenny Ivey DO [address] [place] [address] Assigned PCP 09/05/18 11/20/20 Eladio Gomes DPM [address] [place] [address], [place] [address] Assigned Musculoskeletal Provider 11/21/20 05/19/22 Kun Cueva MD [address] [place] [address] Assigned PCP 11/21/20 Vonda Mendoza APRN CHEMIST PHYSICAL [address] [facility] [address] [place] [address] Nurse Practitioner Neurology 07/27/21 Kun Cueva MD 480 [facility] [address] [place] [address] Referring Physician Family Medicine 07/27/21 Heena Mederos CNP [address] [place] [address] DR [facility] [place] [place] [address] Assigned Neuroscience Provider 05/17/23 lAbert Mix, PharmD [address] [address] Pharmacist Pharmacist 07/07/24 Albert Mix, DejaD [address] [address] Assigned MTM Pharmacist 07/13/24 [place] [address] ELFEGO PURCELL, [address] [address] Assigned Musculoskeletal Provider 08/13/24 documented as of this encounter
--- OUTSIDE RECORDS SUMMARY | 2024-10-19 19:37 | XMS_ITS | Encounter Summary ---
Author Organization [place] Address [address] [place], [place] [address]. [place] [address] Care Team Providers Care Construction Technology Instructor Name Role Phone Kun Cueva MD Primary Care Provider [phone] Kun Cueva MD Unavailable +[phone] Vonda Mendoza APRN FOOD MIXER ASSEMBLER Unavaila ble Kun Cueva MD Unavailable +[phone] Heena Mederos FOOD MIXER ASSEMBLER Unavailable +[phone] Albert Mix PharmD Unavailable [phone] Albert Mix PharmD Unavailable [phone] Hector Vicente DO Unavailable [phone] Encounter Details Date Type Department Care Team (Late st Contact Info) Description 08/15/2022 MyC Medical Advice [facility] [address] [place] [address] Paula Oh Social History Tobacco Use Types Packs/Day Years Used Date Smoking Tobacco: Passive Smo ke Exposure - Never Smoker Smokeless Tobacco: Never Alcohol Use Standard Drinks/Week Comments Yes 0 (1 standard drink = 0.6 oz pur e alcohol) socially AUDIT-C Answer Date Recorded Frequency of Alcohol Consumption 2-4 times a sun09/25/2018 Average Number of Drinks 1 or 2 019 Frequency of Binge Drinking Not on file 08/2018 PHQ-2 Answer Date Recorded PHQ-2 Score 2 07/27/2022 Comments Unknown Sex and Gender Information Value Date Recorded Sex Assigned at Female 05/26/2019 4:02 PM SUPERVISOR INTELLIGENCE ANALYST Legal Sex Female 5:12 AM SUPERVISOR INTELLIGENCE ANALYST Gender Identity Female 05/26/2019 4:02 PM SUPERVISOR INTELLIGENCE ANALYST Sexual Orientation Straight 05/26/2019 4: 02 PM SUPERVISOR INTELLIGENCE ANALYST COVID-19 Exposure Response Date Recorded In the last 10 days, have yo u been in contact with someone who was confirmed or suspected to have Coronavirus/COVID-19? No / Unsure 08/15/2022 3:05 PM CDT documented as of this encounter Plan of Treatment Upcoming Encounters Date Type Department Care Team (Late st Contact Info) Description 11/20/2024 3:00 PM CDT Virtual Visit [facility] [address] [place] [address] Harvey Corrales MD [address] [place] [address] 07/27/2025 3:10 PM CDT Office Visit [facility] [address] [place] [address] Kun Cueva MD [address] [place] [address] documented as of this encounter Visit Diagnoses Not on filedocumented in this encounter Additional Health Concerns Assessment Noted Time PHQ-9 Depression Total Score: 7 07/28/19 23 10:55 AM CDT documented as of this encounter Care Teams Construction Technology Instructor Relationship Specialty Start Date End Date Kun Cueva MD [address] [place], [place] [phone] PCP - General Family Medicine 11/17/20 Kun Cueva MD [address] [place] [address] Assigned PCP 11/21/20 Vonda Mendoza APRN FOOD MIXER ASSEMBLER 9 [facility] [address] Nurse Practitioner Neurology 07/27/21 Kun Cueva MD 480 [facility] [address] [place] [address] Referring Physician Family Medicine 07/27/21 Heena Mederos, NIDHI [address] [place] [address] [place] [address] Assigned Neuroscience Provider 05/17/23 Albert Mix, DejaD [address] [address] Pharmacist Pharmacist 07/07/24 Albert Mix, DejaD [address] [address] Assigned MTM Pharmacist 07/13/24 [place] [address] ELFEGO PURCELL, [address] [address] Assigned Musculoskeletal Provider 08/13/24 documented as of this encounter
--- OUTSIDE RECORDS SUMMARY | 2024-10-19 19:37 | XMS_ITS | Encounter Summary ---
Author Organization [facility] Address [facility] [place] [address] Care Team Providers Care Golf Manager Name Role Phone Jenny Ivey DO Primary Care Provider [phone] Jenny Ivey DO Unavailable [phone] Kun Cueva MD Primary Care Provider [phone] Eladio Gomes DPM Unavailable [phone] Kun Cueva MD Unavailable [phone] Vonda Mendoza APRN SMALL ENGINE TECHNICIAN Unavaila ble Kun Cueva MD Unavailable [phone] Heena Mederos SMALL ENGINE TECHNICIAN Unavailable [phone] Albert Mix PharmD Unavailable [phone] Albert Mix PharmD Unavailable [phone] Hector Vicente DO Unavailable [phone] Encounter Details Date Type Department Care Team (Late st Contact Info) Description 01/30/2019 [facility] [address] [place] [phone] Silvia Douglass CMA Social History Tobacco Use [...] Sex Assigned at Female 05/26/2019 4:02 PM FIELD PIPELINES SUPERVISOR Legal Sex Female 5:12 AM FIELD PIPELINES SUPERVISOR Gender Identity Female 05/26/2019 4:02 PM FIELD PIPELINES SUPERVISOR Sexual Orientation Straight 05/26/2019 4: 02 PM FIELD PIPELINES SUPERVISOR documented as of this encounter Miscellaneous Notes * Telephone Encounter - Silvia Douglass CMA - 02/12/2019 1:03 PM CDT (1st attempt) Left a voice msg for pt to call back or check my-chart. Whenever she calls back schedule phone visit or office visit for depression in case pt feels that her mental health problems are not well control. Maria Fernanda Douglass CMA (AAMA) (aka: Silvia Douglass) documented in this encounter Plan of Treatment Upcoming Encounters Date Type Department Care Team (Late st Contact Info) Description 11/20/2024 3:00 PM CDT Virtual Visit [facility] [address] [phone] Harvey Corrales MD [address] [place] [address] 07/27/2025 3:10 PM CDT Office Visit [facility] [address] [place] [phone] Kun Cueva MD [address] [place], [place] [phone] documented as of this encounter Visit Diagnoses Not on filedocumented in this encounter Additional Health Concerns Infection Onset Date Last Indicated Resolved Time Rule Out COVID-19 08/19/2019 08/19/2019 09/18/2019 11:39 PM CDT Assessment Noted Time PHQ-9 Depression Total Score: 7 02/13/20 19 7:04 AM CDT documented as of this encounter Care Teams Golf Manager Relationship Specialty Start Date End Date Jenny Ivey DO [address] [place] [address] PCP - General Internal Medicine 09/30/18 11/16/20 Kun Cueva MD [address] [place] [address] PCP - General Family Medicine 11/17/20 Jenny Ivey DO [address] [place] [address] Assigned PCP 09/05/18 11/20/20 Eladio Gomes DPM [address] [place] [address] [address] [address] Assigned Musculoskeletal Provider 11/21/20 05/19/22 Kun Cueva MD [address] [place] [address] Assigned PCP 11/21/20 Vonda Mendoza APRN SMALL ENGINE TECHNICIAN [address] [place] [address], [place] [address] Nurse Practitioner Neurology 07/27/21 Kun Cueva MD [address] [place] [address] Referring Physician Family Medicine 07/27/21 Heena Mederos CNP [address] [facility] [place] [address] Assigned Neuroscience Provider 05/17/23 Albert Mix, PharmD [address] [address] Pharmacist Pharmacist 07/07/24 Albert Mix, PharmD [address] [address] Assigned MTM Pharmacist 07/13/24 [place] [address] ELFEGO PURCELL, [address] [address] Assigned Musculoskeletal Provider 08/13/24 documented as of this encounter
--- OUTSIDE RECORDS SUMMARY | 2024-10-19 19:37 | XMS_ITS | Encounter Summary ---
Author Organization [facility] Address [address] [place], [place] [address]. [place] [address] Care Team Providers Care Ship Painter Helper Name Role Phone Kun Cueva MD Primary Care Provider [phone] Kun Cueva MD Unavailable [phone] Vonda Mendoza APRN CUSTOMER ENGAGEMENT MANAGER Unavaila ble Kun Cueva MD Unavailable [phone] Heena Mederos CUSTOMER ENGAGEMENT MANAGER Unavailable [phone] Albert Mix PharmD Unavailable [phone] Albert Mix PharmD Unavailable [phone] Hector Vicente DO Unavailable [phone] Reason for Referral * Therapeutic Services (Routine) - Closed Specialty Diagnoses / Procedures Referred By Contac t Referred To Contact Pain & Palliative Care Diagnoses Lumbar radiculopathy Procedures PAIN Transforaminal DORIS Inj Lumbosacral One Level Left Elvin Beltran MD [address] [address] Phone: tel: fax: Referral ID Status Reason Start Date Expiration Date Visits Re quested Visits Authorized [id number] Closed 06/23/2024 06/23/2025 1 1 TENDER Reason for Visit * Reason Onset Date Comments Procedure 06/20/2024 Right L-4 Dr. Devin RODRIGUEZ Encounter Details Date Type Department Care Team (Late st Contact Info) Description 06/20/2024 Telephone [facility] [address] [facility] [address] [place] [address] Chico Barreto MD [address] [facility] [place] [address] Procedure (Right L-4 Dr. Devin RODRIGUEZ) Social History Tobacco Use Types Packs/Day Years [...] re latives? Once a week 07/17/2023 Attends [employer] Not on file 07/16 Active Member [...] Answer Date Recorded PHQ-2 Score 2 05/09/2024 [facility] - Occupational [...] an overnight care home, or couch-surfing.) Yes 07/17/2023 Are you worried [...] Sex Assigned at Female 05/26/2019 4:02 PM ROLL TENDER Legal Sex Female 5:12 AM ROLL TENDER Gender Identity Female 05/26/2019 4:02 PM ROLL TENDER Sexual Orientation Straight 05/26/2019 4: 02 PM ROLL TENDER documented as of this encounter Miscellaneous Notes * Telephone Encounter - Erinn Deluna - 07/02/2024 4:35 PM CDT Per pt she was told by her monitor car operator to switch to her P/F insurance [employer] Erinn Deluna [employer] Property Management Bookkeeper [facility] Pain Management * Telephone Encounter - Charlotte Nazario RN - 06/23/2024 8:43 AM CST Procedure order placed: Lumbar TFESI-1 level Red Flags: Does the patient have a bleeding or clotting disorder? Yes - Factor 5 Will point this out to the provider as an FYI TENDER * Telephone Encounter - Erinn Deluna - 06/20/2024 11:46 AM CST Screening Questions for Radiology Injections: Injection to be done at which interventional clinic site? [facility] If choosing [facility] for location, please inform patient: [facility] is a Hospital based clinic. Before your visit, you should check with your insurance about how it covers the charges for facility services in a hospital-based clinic.?? Procedure ordered by Estevan Procedure ordered? Right L-4 TFDORIS, Dr. Beltran Transforaminal Cervical DORIS - Send to [facility] - No [facility] Site providers perform this procedure What insurance would patient like us to bill for this procedure? WC IF SCHEDULING IN [facility] [facility] PLEASE SCHEDULE AT LEAST 7-10 BUSINESS DAYS OUT SO A PA CAN BE OBTAINED Worker's comp or MVA (motor vehicle accident) -Any injection DO NOT SCHEDULE and route to Erinn Deluna. [facility] insurance - For ALL INJECTIONS DO NOT SCHEDULE and route to Sandra James. ALL BCBS, Hum[employer] and [employer] CIGNA - DO NOT SCHEDULE and route to Sandra Jacob MEDICA- ALL INJECTIONS- route to Sanrda Jacob Is patient scheduled at [facility]? n If YES, route every encounter to [facility] CARE NAVIGATION POOL [[phone]] Is an retail performance specialist needed? No Patient has a wrecking car driver home? (Review Grid) YES: ok Any chance of ? NO If YES, do NOT schedule and route to spooler operator - Dr. Walters route to PM&R Nurse [[id number]] Is patient actively being treated for cancer or immunocompromised? No If YES, do NOT schedule and route to spooler operator/ Dr. Walters's Team Does the patient have a bleeding or clotting disorder? Yes - Factor 5 If YES, okay to schedule AND route to RN nurse / Dr. Walters's Team (For any patients with platelet count <100, RN must forward to provider) Is patient taking any Blood Thinners OR Antiplatelet medication? No If hold needed, do NOT schedule, route to spooler operator/ Dr. Walters's Team Examples: Blood Thinners: (Coumadin, Warfarin, Jantoven, Pradaxa, Xarelto, Eliquis, Edoxaban, Enoxaparin, Lovenox, Heparin, Arixtra, Fondaparinux or Fragmin) Antiplatelet Medications: (Plavix, Brilinta or Effient) Is patient taking any aspirin products (includes Excedrin and Fiorinal)? Yes - Pt takes 200mg daily; instructed to hold 0 day(s) prior to procedure. If yes route to spooler operator/ Dr. Walters's Team - Do not schedule Is patient taking any GLP-1 Antagonist (hold needed for sedation patients only) Yes - Zepbound (semaglutide (Ozempic, Wegovy), dulaglutide (Trulicity), exenatide ER (Bydureon), tirzepatide (Mounjaro), Liraglutide (Saxenda, Victoza), semaglutide (Rybelsus), Terzepatide (Zepbound) If YES, okay to schedule AND route to RN nurse / Dr. Walters's Team Any allergies to contrast dye, iodine, shellfish, or numbing and steroid medications? No If YES, schedule and add allergy information to appointment notes AND route to the spooler operator/ Dr. Walters's Team If DORIS and Contrast Dye / Iodine Allergy? DO NOT SCHEDULE, route to spooler operator/ Dr. Walters's Team Allergies: Patient has no known allergies. Does patient have an active infection or treated for one within the past week? No Is patient currently taking any antibiotics or steroid medications? No For patients on chronic, preventative, or prophylactic antibiotics, procedures may be scheduled. For patients on antibiotics for active or recent infection, schedule 4 days after completed. For patients on steroid medications, schedule 4 days after completed. Has the patient had a flu shot or any other vaccinations within the past 7 days? No If yes, explain that for the vaccine to work best they need to: wait 1 week before and 1 week after getting any Vaccine wait 1 week before and 2 weeks after getting any Covid Vaccine If patient has concerns about the timing, send to [facility] correa/ Dr. Walters's Team Does patient have an MRI/CT? YES: mri Include Date and Check Procedure Scheduling Grid to see if required. Was the MRI/CT done within the last 3 years? Yes If no route to [facility] Correa/ Dr. Hurleys Team If yes, where was the MRI/CT done? [facility] Refer to PACS Transmissions list for approved external locations and route to director oracle [facility]/ Dr. Tracy Team If MRI was not done at approved external location do NOT schedule and route to [facility]/ Dr. Hurleys Team If patient has an imaging disc, the injection MAY be scheduled but patient must bring disc to appt or appt will be cancelled. Is patient able to transfer to a procedure table with minimal or no assistance? Yes If no, do NOT schedule and route to director oracle/ Dr. Hurleys Team Procedure Specific Instructions: If celiac plexus block, informed patient NPO for 6 hours and that it is okay to take medications with sips of water, especially blood pressure medications Not Applicable If this is for a cervical procedure, informed patient that aspirin needs to be held for 6 days. NotApplicable Sedation, If Sedation is ordered for any procedure, patient must be NPO for 6 hours prior to procedure Not Applicable If IV needed: Do not schedule procedures requiring IV placement in the first appointment of the day or first appointment after lunch. Do NOT schedule at 0745, 0815 or 1245. ok Instructed patient to arrive 30 minutes early for IV start if required. (Check Procedure SchedulingGrid) Not Applicable Reminders: If you are started on any steroids or antibiotics between now and your appointment, you must contact us because the procedure may need to be cancelled. Yes As a reminder, receiving steroids can decrease your body's ability to fight infection. Would you still like to move forward with scheduling the injection? Yes IV Sedation is not provided for procedures. If oral anti-anxiety medication is needed, the patient should request this from their referring provider. Instruct patient to arrive as directed prior to the scheduled appointment time: If IV needed 30 minutes before appointment time For patients 85 or older we recommend having an adult stay w/ them for the remainder of the day. If the patient is Diabetic, remind them to bring their glucometer. Dr. Stephanie Pt's - Imaging Orders Needed Please send all injections to director oracle NO Red Flags? NO Does the patient have any questions? NO Erinn Deluna [facility] TENDER documented in this encounter Plan of Treatment Upcoming Encounters Date Type Department Care Team (Late st Contact Info) Description 11/20/2024 3:00 PM CDT Virtual Visit [facility] Bariatrics [facility] [place] [address] [facility] [address] [place] [address] Harvey Corrales MD [address] [facility] 200 [place] [address] 07/27/2025 3:10 PM CDT Office Visit [facility] [address] [place] [address] Kun Cueva MD [address] [place] [address] documented as of this encounter Results * PAIN Transforaminal DORIS Inj Lumbosacral One Level Left (07/03/2024 8:50 AM CDT) Anatomical Region Laterality Modality PAIN/SPINE Radio Fluoroscop y Narrative 07/04/2024 7:36 AM CDT Pre procedure Diagnosis: lumbar radiculopathy Post procedure Diagnosis: Same Procedure performed: right L4 transforaminal epidural steroid injection, CPT code 48233 Anesthesia: none Complications: none immediately Operators: Elvin Beltran MD Indications: Sarah Waldron is a 54 year old female was sent for a lumbar transforaminal epidural steroid injection Options/alternatives, benefits and risks were discussed with the patient including bleeding, infection, tissue trauma, numbness, weakness, paralysis, spinal cord injury, radiation exposure, headache and reaction to medications. Questions were answered to her satisfaction and she agrees to proceed. Voluntary informed consent was obtained and signed. Vitals were reviewed: Yes Allergies were reviewed: Yes Medications were reviewed: Yes Pre-procedure pain score: 4/10 Procedure: After getting informed consent, patient was brought into the procedure suite and was placed in a prone position on the procedure table. A Pause for the Cause was performed. Patient was prepped and draped in sterile fashion. After identifying the right L4-5 neuroforamen, the C-arm was rotated to a right lateral oblique angle. A total of 3ml of Lidocaine 1% was used to anesthetize the skin and the needle track at a skin entry site coaxial with the fluoroscopy beam, and overriding the superior aspect of the neuroforamen. A 22 gauge 5 inch spinal needle was advanced under intermittent fluoroscopy until it entered the foramen superiorly. The position was then inspected from anteroposterior and lateral views, and the needle adjusted appropriately. A total of 1.5ml of Omnipaque-180 was injected, confirming appropriate position, with spread into the nerve root sheath and the epidural space, with no intravascular uptake. Visualization of active injection under live fluoroscopy or digital subtraction angiography further confirmed the above appropriate contrast spread. 1ml of preservative free 1% lidocaine with 10mg of dexamethasone was injected. The needle was flushed with lidocaine and removed. During the procedure, the patient DID NOT experience paresthesias corresponding to the nerve root near final needle placement. Hemostasis was achieved, the area was cleaned, and bandaids were placed when appropriate. The patient tolerated the procedure well, and was taken to the recovery room. Images were saved to PACS. Post-procedure pain score: 4/10 Follow-up includes: -f/u with referring provider Elvin Beltran MD Interventional Pain Medicine [facility] Elvin Beltran MD IM PAIN MANAGEMENT ORDERABLE S Final Result documented in this encounter Visit Diagnoses Diagnosis Lumbar radiculopathy- Primary Thoracic or lumbosacral neuritis or radiculitis, unspecified Lumbar radiculopathy Thoracic or lumbosacral neuritis or radiculitis, unspecified documented in this encounter Additional Health Concerns Assessment Noted Time PHQ-9 Depression Total Score: 7 05/09/19 25 7:52 AM ROLL TENDER documented as of this encounter Care Teams Ship Painter Helper Relationship Specialty Start Date End Date Kun Cueva MD [address] [facility] [address] [place] [address] PCP - General Family Medicine 11/17/20 Kun Cueva MD [address] [facility] [address] [place] [address] Assigned PCP 11/21/20 Vonda Mendoza APRN CUSTOMER ENGAGEMENT MANAGER [address] [place] [address] [address] Nurse Practitioner Neurology 07/27/21 Kun Cueva MD [address] [facility] [address] [place] [address] Referring Physician Family Medicine 07/27/21 Heena Mederos CNP [address] [place] [address] [place] [address] Assigned Neuroscience Provider 05/17/23 Albert Mix, PharmD [address] [address] Pharmacist Pharmacist 07/07/24 Albert Mix, Will [address] [address] Assigned MTM Pharmacist 07/13/24 [place] [address] ELFEGO PURCELL, [address] [address] Assigned Musculoskeletal Provider 08/13/24 documented as of this encounter
--- OUTSIDE RECORDS SUMMARY | 2024-10-19 19:37 | XMS_ITS | Encounter Summary ---
Author Organization [facility] Address [address] [place], [place] [address]. [place] [address] Care Team Providers Care Change Management Expert Name Role Phone Kun Cueva MD Primary Care Provider Kun Cueva MD Unavailable [phone] Vonda Mendoza APRN PUBLIC HEALTH TEACHER Unavaila ble Kun Cueva MD Unavailable [phone] Heena Mederos PUBLIC HEALTH TEACHER Unavailable [phone] Albert Mix PharmD Unavailable [phone] Albert Mix PharmD Unavailable [phone] Hector Vicente DO Unavailable [phone] Reason for Visit * Reason Onset Date Comments Refill Request 10/09/2022 Encounter Details Date Type Department Care Team (Late st Contact Info) Description 10/09/2022 MyC Refill [facility] [address] [place] [phone] Kun Cueva MD [address] [place] [address] Refill Request Social History Tobacco [...] Sex Assigned at Female 05/26/2019 4:02 PM GROUP LEADER WAFER POLISHING Legal Sex Female 5:12 AM GROUP LEADER WAFER POLISHING Gender Identity Female 05/26/2019 4:02 PM GROUP LEADER WAFER POLISHING Sexual Orientation Straight 05/26/2019 4: 02 PM GROUP LEADER WAFER POLISHING COVID-19 Exposure Response Date Recorded In the last 10 days, have yo u been in contact with someone who was confirmed or suspected to have Coronavirus/COVID-19? No / Unsure 10/09/2022 9:34 AM CDT documented as of this encounter Miscellaneous Notes * Telephone Encounter - Linn Ortiz RN - 10/10/2022 2:28 PM CDT Last Written Prescription Date: 07/27/2022 Last Fill Quantity: 30, # refills: 0 Last office visit provider: 07/27/2022 Requested Prescriptions Pending Prescriptions Disp Refills ??? montelukast (SINGULAIR) 10 MG tablet 30 tablet 0 Sig: Take 1 tablet (10 mg) by mouth At Bedtime Leukotriene Inhibitors Protocol Passed - 10/10/2022 2:28 PM Passed - Patient is age 12 or older If patient is under 16, ok to refill using age based dosing. Passed - Recent (12 mo) or future [...] - Medication is active on med list Linn Ortiz RN 10/10/22 2:28 PM documented in this encounter Plan of Treatment Upcoming Encounters Date Type Department Care Team (Late st Contact Info) Description 11/20/2024 3:00 PM CDT Virtual Visit [facility] B[facility]rics Care [place] [address] [facility] [address] [place] [phone] Harvey Corrales MD [address] [facility] 200 [place] [address] 07/27/2025 3:10 PM CDT Office Visit [facility] [address] [place] [address] Kun Cueva MD [address] [place] [address] documented as of this encounter Visit Diagnoses Diagnosis Non-seasonal allergic rhinitis, unspecified trigger documented in this encounter Additional Health Concerns Assessment Noted Time PHQ-9 Depression Total Score: 7 07/28/19 23 10:55 AM CDT documented as of this encounter Care Teams Change Management Expert Relationship Specialty Start Date End Date Kun Cueva MD [address] [place] [address] PCP - General Family Medicine 11/17/20 Kun Cueva MD [address] [place] [address] Assigned PCP 11/21/20 Vonda Mendoza APRN PUBLIC HEALTH TEACHER [address] [facility] [place] [address] Nurse Practitioner Neurology 07/27/21 Kun Cueva MD [address] [place] [address] Referring Physician Family Medicine 07/27/21 Heena Mederos CNP [address] [facility] [place] [address] Assigned Neuroscience Provider 05/17/23 lAbert Mix, PharmD [address] [address] Pharmacist Pharmacist 07/07/24 Albert Mix, DejaD [address] [address] Assigned [place] Pharmacist 07/13/24 [place] [address] ELFEGO PURCELL, [address] [address] Assigned Musculoskeletal Provider 08/13/24 documented as of this encounter
--- OUTSIDE RECORDS SUMMARY | 2024-10-19 19:37 | XMS_ITS | Encounter Summary ---
Author Organization [place] Address [address] [place] [address] [place] [address] Care Team Providers Care Marketing Systems Manager Name Role Phone Kun Cueva MD Primary Care Provider Kun Cueva MD Unavailable [phone] Vonda Mendoza APRN CHIEF RADIOLOGIC TECHNOLOGIST Unavaila ble Kun Cueva MD Unavailable [phone] Heena Mederos CHIEF RADIOLOGIC TECHNOLOGIST Unavailable [phone] Albert Mix PharmD Unavailable [phone] Albert Mix PharmD Unavailable [phone] Hector Vicente DO Unavailable [phone] Encounter Details Date Type Department Care Team (Late st Contact Info) Description 01/16/2024 MyC Medical Advice [facility] [address] [place] [phone] Kun Cueva MD [address] [place] [address] Social History Tobacco Use Types [...] re latives? Once a week 07/17/2023 Attends [employer] Services Not on file 07/16 Active Member [...] PHQ-2 Answer Date Recorded PHQ-2 Score 2 12/20/2023 [facility] [place] of Occupat ional Health - Occupational Stress [...] in an abandoned building, in an overnight long term, or couch-surfing.) Yes 07/17/2023 Are you worried [...] Sex Assigned at Female 05/26/2019 4:02 PM SHREDDED FILLER CIGAR MAKER MACHINE Legal Sex Female 5:12 AM SHREDDED FILLER CIGAR MAKER MACHINE Gender Identity Female 05/26/2019 4:02 PM SHREDDED FILLER CIGAR MAKER MACHINE Sexual Orientation Straight 05/26/2019 4: 02 PM SHREDDED FILLER CIGAR MAKER MACHINE documented as of this encounter Plan of Treatment Upcoming Encounters Date Type Department Care Team (Late st Contact Info) Description 11/20/2024 3:00 PM CDT Virtual Visit [facility] [address] [address] Harvey Corrales MD [address] [place] [address] 07/27/2025 3:10 PM CDT Office Visit [facility] [address] [place] [address] Kun Cueva MD [address] [place] [address] documented as of this encounter Visit Diagnoses Not on filedocumented in this encounter Additional Health Concerns Assessment Noted Time PHQ-9 Depression Total Score: 14 024 9:18 AM CDT documented as of this encounter Care Teams Marketing Systems Manager Relationship Specialty Start Date End Date Kun Cueva MD [address] [place] [address] PCP - General Family Medicine 11/17/20 Kun Cueva MD [address] [place] [address] Assigned PCP 11/21/20 Vonda Mendoza APRN CHIEF RADIOLOGIC TECHNOLOGIST [address] [place] [address] [address] Nurse Practitioner Neurology 07/27/21 Kun Cueva MD [address] [facility] [address] [place] [address] Referring Physician Family Medicine 07/27/21 Heena Mederos CNP [address] [place] [address] [place] [address] Assigned Neuroscience Provider 05/17/23 Albert Mix, PharmD [address] [address] Pharmacist Pharmacist 07/07/24 Albert Mix PharmD [address] [address] Assigned MTM Pharmacist 07/13/24 [place] [address] ELFEGO PURCELL, [address] [address] Assigned Musculoskeletal Provider 08/13/24 documented as of this encounter
--- OUTSIDE RECORDS SUMMARY | 2024-10-19 19:37 | XMS_ITS | Encounter Summary ---
Author Organization [place] Address [address] [place], [place] [address]. [place] [address] Care Team Providers Care Staff Sonographer Name Role Phone Kun Cueva MD Primary Care Provider [phone] Kun Cueva MD Unavailable [phone] Vonda Mendoza APRN SCHOOL HEALTH AIDE Unavaila ble Kun Cueva MD Unavailable [phone] Heena Mederos SCHOOL HEALTH AIDE Unavailable [phone] Albert Mix PharmD Unavailable [phone] Albert Mix PharmD Unavailable [phone] Hector Vicente DO Unavailable [phone] Encounter Details Date Type Department Care Team (Late st Contact Info) Description 02/25/2023 [facility]ariatrics Care [address] [phone] Harvey Corrales MD [address] [place] [address] Social History Tobacco Use Types Packs/Day [...] Assigned at Female 05/26/2019 4:02 PM COAL CAGER Legal Sex Female 5:12 AM COAL CAGER Gender Identity Female 05/26/2019 4:02 PM COAL CAGER Sexual Orientation Straight 05/26/2019 4: 02 PM COAL CAGER documented as of this encounter Plan of Treatment Upcoming Encounters Date Type Department Care Team (Late st Contact Info) Description 11/20/2024 3:00 PM CDT Virtual Visit [facility] Care [address] [address] Harvey Corrales MD [address] [place] [address] 07/27/2025 3:10 PM CDT Office Visit [facility] [address] [place] [address] Kun Cueva MD [address] [place] [address] documented as of this encounter Visit Diagnoses Not on filedocumented in this encounter Additional Health Concerns Assessment Noted Time PHQ-9 Depression Total Score: 7 07/28/19 23 10:55 AM CDT documented as of this encounter Care Teams Staff Sonographer Relationship Specialty Start Date End Date Kun Cueva MD [address] [place] [address] PCP - General Family Medicine 11/17/20 Kun Cueva MD [address] [place] [address] Assigned PCP 11/21/20 Vonda Mendoza APRN SCHOOL HEALTH AIDE [address] [facility] [address] Nurse Practitioner Neurology 07/27/21 Kun Cueva MD [address] [place] [address] [address] [place] [address] Referring Physician Family Medicine 07/27/21 Heena Mederos CNP [address] [place] [address] [place] [address] Assigned Neuroscience Provider 05/17/23 Albert Mix, PharmD [address] [id number] Pharmacist Pharmacist 07/07/24 Albert Mix, DejaD [address] [address] Assigned MTM Pharmacist 07/13/24 [place] [address] ELFEGO PURCELL, [address] [address] Assigned Musculoskeletal Provider 08/13/24 documented as of this encounter
--- OUTSIDE RECORDS SUMMARY | 2024-10-19 19:37 | XMS_ITS | Encounter Summary ---
Author Organization [place] Address [address] [place], [place] [address]e. [place] [address] Care Team Providers Care Metal Framer Name Role Phone Kun Cueva MD Primary Care Provider [phone] Eladio Gomes DPM Unavailable [phone] Kun Cueva MD Unavailable [phone] Vonda Mendoza APRN DATA ANALYSIS INTERN Unavaila ble Kun Cueva MD Unavailable [phone] Heena Mederos DATA ANALYSIS INTERN Unavailable [phone] Albert Mix PharmD Unavailable [phone] Albert Mix PharmD Unavailable [phone] Hector Vicente DO Unavailable [phone] Encounter Details Date Type Department Care Team (Late st Contact Info) Description 07/18/2021 MyC Medical Advice [facility] [address] [place] [phone] Maricruz Cardenas Social History Tobacco Use Types Packs/Day Years [...] 08/2018 PHQ-2 Answer Date Recorded PHQ-2 Score 0 05/28/2020 Comments Unknown Sex and Gender Information Value Date Recorded Sex Assigned at Female 05/26/2019 4:02 PM HUMID SYSTEM OPERATOR Legal Sex Female 5:12 AM HUMID SYSTEM OPERATOR Gender Identity Female 05/26/2019 4:02 PM HUMID SYSTEM OPERATOR Sexual Orientation Straight 05/26/2019 4: 02 PM HUMID SYSTEM OPERATOR COVID-19 Exposure Response Date Recorded In the last month, have you been in contact with someone who was confirmed or suspected to have Coronavirus / COVID-19? No / Unsure 07/05/2021 2:43 PM CDT documented as of this encounter Plan of Treatment Upcoming Encounters Date Type Department Care Team (Late st Contact Info) Description 11/20/2024 3:00 PM CDT Virtual Visit [facility] Bariatrics Care [address] [place] [address] Harvey Corrales MD [address] [place] [address] 07/27/2025 3:10 PM CDT Office Visit [facility] [address] [place] [address] Kun Cueva MD [address] [place], [place] [address] documented as of this encounter Visit Diagnoses Not on filedocumented in this encounter Additional Health Concerns Assessment Noted Time PHQ-9 Depression Total Score: 14 021 7:02 AM HUMID SYSTEM OPERATOR documented as of this encounter Care Teams Metal Framer Relationship Specialty Start Date End Date Kun Cueva MD [address] [place], [place] [phone] PCP - General Family Medicine 11/17/20 Eladio Gomes DPM [address] [place] [address], [place] [address] Assigned Musculoskeletal Provider 11/21/20 05/19/22 Kun Cueva MD 480 [facility] 96 [place] [address] Assigned PCP 11/21/20 Vonda Mendoza APRN DATA ANALYSIS INTERN [address] [place] [address] [address] Nurse Practitioner Neurology 07/27/21 Kun Cueva MD [address] [address] Referring Physician Family Medicine 07/27/21 Heena Mederos CNP [address] [place] [address] [place] [address] Assigned Neuroscience Provider 05/17/23 Albert Mix, PharmD [address] [address] Pharmacist Pharmacist 07/07/24 Albert Mix PharmD [address] [address] Assigned MTM Pharmacist 07/13/24 [place] [address] ELFEGO PURCELL, [address] [address] Assigned Musculoskeletal Provider 08/13/24 documented as of this encounter
--- OUTSIDE RECORDS SUMMARY | 2024-10-19 19:37 | XMS_ITS | Encounter Summary ---
Author Organization [place] Address [address] [place] [address] [place] [address] Care Team Providers Care Extrusion Press Operator Name Role Phone Kun Cueva MD Primary Care Provider Kun Cueva MD Unavailable [phone] Vonda Mendoza APRN IN STORE REPRESENTATIVE Unavaila ble Kun Cueva MD Unavailable [phone] Heena Mederos IN STORE REPRESENTATIVE Unavailable [phone] Albert Mix PharmD Unavailable [phone] Albert Mix PharmD Unavailable [phone] Hector Vicente DO Unavailable [phone] Encounter Details Date Type Department Care Team (Late st Contact Info) Description 06/19/2024 MyC Medical Advice [facility] [address] [place] [phone] Kun Cueva MD [address] [place] [address] Social History Tobacco Use Types [...] re latives? Once a week 07/17/2023 Attends [employer] Not on file 07/16 Active Member [...] Answer Date Recorded PHQ-2 Score 2 05/09/2024 [facility] [place] of Occupat ional Health - Occupational Stress [...] an overnight skilled nursing, or couch-surfing.) Yes 07/17/2023 Are you worried [...] Sex Assigned at Female 05/26/2019 4:02 PM FLARER Legal Sex Female 5:12 AM FLARER Gender Identity Female 05/26/2019 4:02 PM FLARER Sexual Orientation Straight 05/26/2019 4: 02 PM FLARER documented as of this encounter Plan of Treatment Upcoming Encounters Date Type Department Care Team (Late st Contact Info) Description 11/20/2024 3:00 PM CDT Virtual Visit [facility] Surgery Clinic and Bariatrics Care [address] [phone] Harvey Corrales MD [address] [place] [address] 07/27/2025 3:10 PM CDT Office Visit [facility] [address] [place] [address] Kun Cueva MD [address] [place] [address] documented as of this encounter Visit Diagnoses Not on filedocumented in this encounter Additional Health Concerns Assessment Noted Time PHQ-9 Depression Total Score: 7 05/09/19 25 7:52 AM FLARER documented as of this encounter Care Teams Extrusion Press Operator Relationship Specialty Start Date End Date Kun Cueva MD [address] [address] PCP - General Family Medicine 11/17/20 Kun Cueva MD [address] [address] Assigned PCP 11/21/20 Vonda Mendoza APRN IN STORE REPRESENTATIVE [address] [place], [place] [address] [address] Nurse Practitioner Neurology 07/27/21 Kun Cueva MD [address] [address] Referring Physician Family Medicine 07/27/21 Heena Mederos CNP [address] [place] [address] [place] [address] Assigned Neuroscience Provider 05/17/23 Albert Mix, DejaD [address] [address] Pharmacist Pharmacist 07/07/24 Albert Mix PharmD [address] [address] Assigned MTM Pharmacist 07/13/24 [place] [address] ELFEGO PURCELL, [address] [address] Assigned Musculoskeletal Provider 08/13/24 documented as of this encounter
--- OUTSIDE RECORDS SUMMARY | 2024-10-19 19:37 | XMS_ITS | Encounter Summary ---
Author Organization [facility] Address [address] [place], [place] [address]. [place] [address] Care Team Providers Care Drum Tender Name Role Phone Kun Cueva MD Primary Care Provider Eladio Gomes DPM Unavailable Kun Cueva MD Unavailable Vonda Mendoza APRN LAUNDRY HOUSEKEEPER Unavaila ble Kun Cueva MD Unavailable Heena Mederos LAUNDRY HOUSEKEEPER Unavailable [phone] Albert Mix PharmD Unavailable [phone] Albert Mix PharmD Unavailable [phone] Hector Vicente DO Unavailable [phone] Encounter Details Date Type Department Care Team (Late st Contact Info) Description 03/23/2021 MyC Medical Advice [facility] [address] [place] [address] Kun Cueva MD [address] [place] [address] Social History Tobacco Use Types [...] Sex Assigned at Female 05/26/2019 4:02 PM LAMINATION OPERATOR Legal Sex Female 5:12 AM LAMINATION OPERATOR Gender Identity Female 05/26/2019 4:02 PM LAMINATION OPERATOR Sexual Orientation Straight 05/26/2019 4: 02 PM LAMINATION OPERATOR documented as of this encounter Miscellaneous Notes * Telephone Encounter - Nan Silva Missy - 03/25/2021 2:08 PM CST Images from the original note were not included. Please see pt response to your questions from her e-visit NATION OPERATOR documented in this encounter Plan of Treatment Upcoming Encounters Date Type Department Care Team (Late st Contact Info) Description 11/20/2024 3:00 PM CDT Virtual Visit [facility] Surgery Clinic and Bariatrics Care [address] [phone] Harvey Corrales MD [address] [place] [address] 07/27/2025 3:10 PM CDT Office Visit [facility] [address] [place] [address] Kun Cueva MD [address] [place], [place] [address] documented as of this encounter Visit Diagnoses Not on filedocumented in this encounter Additional Health Concerns Assessment Noted Time PHQ-9 Depression Total Score: 2 09/17/19 21 4:37 PM CDT documented as of this encounter Care Teams Drum Tender Relationship Specialty Start Date End Date Kun Cueva MD [address] [place] [address] PCP - General Family Medicine 11/17/20 Eladio Gomes DPM [address] [facility] [address] [place] [address] Assigned Musculoskeletal Provider 11/21/20 05/19/22 Kun Cueva MD [address] [place] [address] Assigned PCP 11/21/20 Vonda Mendoza APRN LAUNDRY HOUSEKEEPER [address] [place], [place] [address] [address] Nurse Practitioner Neurology 07/27/21 Kun Cueva MD [address] [place] [address] Referring Physician Family Medicine 07/27/21 Heena Mederos CNP [address] [place] [address] J[place] [address] Assigned Neuroscience Provider 05/17/23 Albert Mix, PharmD [address] [address] Pharmacist Pharmacist 07/07/24 Albert Mix, PharmD [address] [address] Assigned MTM Pharmacist 07/13/24 [place] [address] ELFEGO PURCELL, [address] [address] Assigned Musculoskeletal Provider 08/13/24 documented as of this encounter
--- OUTSIDE RECORDS SUMMARY | 2024-10-19 19:37 | XMS_ITS | Encounter Summary ---
Author Organization [place] Address [address] [place], [place] [address]e. [place] [address] Care Team Providers Care Records Coordinator Name Role Phone Kun Cueva MD Primary Care Provider [phone] Kun Cueva MD Unavailable [phone] Vonda Mendoza APRN THREAD DRESSER Unavaila ble Kun Cueva MD Unavailable [phone] Heena Mederos THREAD DRESSER Unavailable [phone] Albert Mix PharmD Unavailable [phone] Albert Mix PharmD Unavailable [phone] Hector Vicente DO Unavailable [phone] Encounter Details Date Type Department Care Team (Late st Contact Info) Description 08/07/2023 MyC Medical Advice [facility] Surgery Clinic and Bariatrics Care [address] [place] [phone] Harvey Corrales MD [address] [place] [address] Social History Tobacco Use Types Packs/Day [...] re latives? Once a week 07/17/2023 Attends [employer] Not on file 07/16 Active Member [...] Answer Date Recorded PHQ-2 Score 3 05/28/2023 [facility] of Occupat ional Health - Occupational [...] in an overnight chcf, or couch-surfing.) Yes 07/17/2023 Are you worried [...] Sex Assigned at Female 05/26/2019 4:02 PM INSTRUCTION LIBRARIAN Legal Sex Female 5:12 AM INSTRUCTION LIBRARIAN Gender Identity Female 05/26/2019 4:02 PM INSTRUCTION LIBRARIAN Sexual Orientation Straight 05/26/2019 4: 02 PM INSTRUCTION LIBRARIAN documented as of this encounter Plan of Treatment Upcoming Encounters Date Type Department Care Team (Late st Contact Info) Description 11/20/2024 3:00 PM CDT Virtual Visit [facility] and Bariatrics Care [address] [phone] Harvey Corrales MD [address] [place] [address] 07/27/2025 3:10 PM CDT Office Visit [facility] [address] [place] [address] Kun Cueva MD [address] [place], [place] [address] documented as of this encounter Visit Diagnoses Not on filedocumented in this encounter Additional Health Concerns Assessment Noted Time PHQ-9 Depression Total Score: 10 024 9:14 AM INSTRUCTION LIBRARIAN documented as of this encounter Care Teams Records Coordinator Relationship Specialty Start Date End Date Kun Cueva MD [address] [place] [address] PCP - General Family Medicine 11/17/20 Kun Cueva MD [address] [place] [address] Assigned PCP 11/21/20 Vonda Mendoza APRN THREAD DRESSER [address] [place], [place] [address] [address] Nurse Practitioner Neurology 07/27/21 Kun Cueva MD [address] [place] [address] Referring Physician Family Medicine 07/27/21 Heena Mederos CNP [address] [place] [address] [place] [address] Assigned Neuroscience Provider 05/17/23 Albert Mix, DejaD [address] [address] Pharmacist Pharmacist 07/07/24 Albert Mix, Will [address] [address] Assigned MTM Pharmacist 07/13/24 [place] [address] ELFEGO PURCELL, [address] [address] Assigned Musculoskeletal Provider 08/13/24 documented as of this encounter
--- OUTSIDE RECORDS SUMMARY | 2024-10-19 19:37 | XMS_ITS | Encounter Summary ---
Author Organization [place] Address [address] [place] [address] [place] [address] Care Team Providers Care Child Care Director Name Role Phone Kun Cueva MD Primary Care Provider Kun Cueva MD Unavailable [phone] Vonda Mendoza APRN CLIENT COORDINATOR Unavaila ble Kun Cueva MD Unavailable [phone] Heena Mederos CLIENT COORDINATOR Unavailable [phone] Albert Mix PharmD Unavailable [phone] Albert Mix PharmD Unavailable [phone] Hector Vicente DO Unavailable [phone] Encounter Details Date Type Department Care Team (Late st Contact Info) Description 08/20/2023 MyC Medical Advice [facility] [address] [place] [phone] Kun Cueva MD [address] [place] [address] Social History Tobacco Use Types [...] re latives? Once a week 07/17/2023 Attends [employer] Not on file 07/16 Active Member [...] file 08/2018 PHQ-2 Answer Date Recorded PHQ-2 Total Score (Adult) - Positive if 3 or more points; Administer PHQ-9 if positive 4 08/19/2023 [facility] [place] of Occupat ional Health - Occupational Stress [...] Sex Assigned at Female 05/26/2019 4:02 PM METAL GRINDER Legal Sex Female 5:12 AM METAL GRINDER Gender Identity Female 05/26/2019 4:02 PM METAL GRINDER Sexual Orientation Straight 05/26/2019 4: 02 PM METAL GRINDER documented as of this encounter Plan of Treatment Upcoming Encounters Date Type Department Care Team (Late st Contact Info) Description 11/20/2024 3:00 PM CDT Virtual Visit [facility] Surgery Clinic and Bariatrics Care [address] [phone] Harvey Corrales MD [address] [place] [address] 07/27/2025 3:10 PM CDT Office Visit [facility] [address] [place] [phone] Kun Cueva MD [address] [place], [place] [address] documented as of this encounter Visit Diagnoses Not on filedocumented in this encounter Additional Health Concerns Assessment Noted Time PHQ-9 Depression Total Score: 14 024 9:18 AM CDT documented as of this encounter Care Teams Child Care Director Relationship Specialty Start Date End Date Kun Cueva MD [address] [place] [address] PCP - General Family Medicine 11/17/20 Kun Cueva MD [address] [place] [address] Assigned PCP 11/21/20 Vonda Mendoza APRN CLIENT COORDINATOR [address] [place], [place] [address], [place] [address] Nurse Practitioner Neurology 07/27/21 Kun Cueva MD [address] [place] [address] Referring Physician Family Medicine 07/27/21 Heena Mederos, NIDHI [address] [facility] [place] [address] Assigned Neuroscience Provider 05/17/23 Albert Mix, Will [address] [address] Pharmacist Pharmacist 07/07/24 Albert Mix PharmD [address] [address] Assigned MTM Pharmacist 07/13/24 [place] [address] ELFEGO PURCELL, [address] [address] Assigned Musculoskeletal Provider 08/13/24 documented as of this encounter
--- OUTSIDE RECORDS SUMMARY | 2024-10-19 19:37 | XMS_ITS | Encounter Summary ---
Author Organization [place] Address [address] [place] [address]. [place] [address] Care Team Providers Care Public Relations Senior Associate Name Role Phone Primary Dr, Mariusz ONEILL Primary Care Provider Viktoriya elvirailaZeina Laureano MD Primary Care Provider [phone] Jenny Ivey DO Primary Care Provider [phone] Jenny Ivey DO Unavailable +[phone] Kun Cueva MD Primary Care Provider + [phone] Eladio Gomes DPM Unavailable +[phone] Kun Cueva MD Unavailable +[phone] Vonda Mendoza APRN PRINT WASHER Unavaila ble Kun Cueva MD Unavailable +[phone] Heena eMderos PRINT WASHER Unavailable +[phone] Albert Mix PharmD Unavailable +[phone] Albert Mix PharmD Unavailable +[phone] Hector Vicente DO Unavailable [phone] Encounter Details Date Type Department Care Team (Late st Contact Info) Description 01/19/2015 Records - [facility] CONVERSION Provider, Historical Social History Tobacco Use Types Packs/Day Years Used Date Smoking Tobacco: Never Assessed Smokeless Tobacco: Never Comments Unknown Sex and Gender Information Value Date Recorded Sex Assigned at Female 05/26/2019 4:02 PM SHOP MECHANIC HELPER Legal Sex Female 5:12 AM SHOP MECHANIC HELPER Gender Identity Female 05/26/2019 4:02 PM SHOP MECHANIC HELPER Sexual Orientation Straight 05/26/2019 4: 02 PM SHOP MECHANIC HELPER documented as of this encounter Plan of Treatment Upcoming Encounters Date Type Department Care Team (Late st Contact Info) Description 11/20/2024 3:00 PM CDT Virtual Visit [facility] [place] [address] [facility] [address] [place] [phone] Harvey Corrales MD [address] [facility] 200 [place], [place] [id number] 07/27/2025 3:10 PM CDT Office Visit [facility] [address] [place] [phone] Kun Cueva MD [address] [place], [place] [id number] documented as of this encounter Visit Diagnoses Not on filedocumented in this encounter Additional Health Concerns Infection Onset Date Last Indicated Resolved Time Rule Out COVID-19 08/19/2019 08/19/2019 09/18/2019 11:39 PM CDT documented as of this encounter Care Teams Public Relations Senior Associate Relationship Specialty Start Date End Date Primary Mariusz Sanchez MD PCP - General 06/18/10 02/25/15 Zeina Sosa MD PCP - General Family Practice 02/26/15 09/29/18 Jenny Ivey DO [address] [place] [address] PCP - General Internal Medicine 09/30/18 11/16/20 Kun Cueva MD [address] [place] [address] PCP - General Family Medicine 11/17/20 Jenny Ivey DO [address] [place] [address] Assigned PCP 09/05/18 11/20/20 Eladio Gomes DPM 2945 [facility] [address] [place] [address] Assigned Musculoskeletal Provider 11/21/20 05/19/22 Kun Cueva MD [address] [address] Assigned PCP 11/21/20 Vonda Mendoza APRN PRINT WASHER [address] [place] [address] [address] Nurse Practitioner Neurology 07/27/21 Kun Cueva MD [address] [address] Referring Physician Family Medicine 07/27/21 Heena Mederos CNP [address] [place] [address] JULIANA MCGEE [address] Assigned Neuroscience Provider 05/17/23 Albert Mix, DejaD [address] [address] Pharmacist Pharmacist 07/07/24 Albert Mix, DejaD [address] [address] Assigned MTM Pharmacist 07/13/24 [place] [address] ELFEGO SANCHEZ, [address] [address] Assigned Musculoskeletal Provider 08/13/24 documented as of this encounter
--- OUTSIDE RECORDS SUMMARY | 2024-10-19 19:37 | XMS_ITS | Encounter Summary ---
Author Organization [place] Address [address] [place], [place] [address]. [place] [address] Care Team Providers Care Enrichment Director Name Role Phone Kun Cueva MD Primary Care Provider [phone] Kun Cueva MD Unavailable +[phone] Vonda Mendoza APRN RIFFLER TENDER Unavaila ble Kun Cueva MD Unavailable +[phone] Heean Mederos RIFFLER TENDER Unavailable +[phone] Albert Mix PharmD Unavailable +[phone] Albert Mix PharmD Unavailable [phone] Hector Vicente DO Unavailable [phone] Encounter Details Date Type Department Care Team (Late st Contact Info) Description 06/19/2024 [facility] [address] 200 [place] [phone] Harvey Corrales MD [address] [place] [address] Social History Tobacco Use Types Packs/Day [...] re latives? Once a week 07/17/2023 Attends Christian Services Not on file 07/16 Active Member [...] Answer Date Recorded PHQ-2 Score 2 05/09/2024 [facility] - [...] in an overnight fdc, or couch-surfing.) Yes 07/17/2023 Are you worried [...] Sex Assigned at Female 05/26/2019 4:02 PM SPORTS INFORMATION DIRECTOR Legal Sex Female 5:12 AM SPORTS INFORMATION DIRECTOR Gender Identity Female 05/26/2019 4:02 PM SPORTS INFORMATION DIRECTOR Sexual Orientation Straight 05/26/2019 4: 02 PM SPORTS INFORMATION DIRECTOR documented as of this encounter Plan of Treatment Upcoming Encounters Date Type Department Care Team (Late st Contact Info) Description 11/20/2024 3:00 PM CDT Virtual Visit [facility] [address] [phone] Harvey Corrales MD [address] [place] [address] 07/27/2025 3:10 PM CDT Office Visit [facility] [address] [place] [address] Kun Cueva MD [address] [place], [place] [phone] documented as of this encounter Visit Diagnoses Not on filedocumented in this encounter Additional Health Concerns Assessment Noted Time PHQ-9 Depression Total Score: 7 05/09/19 25 7:52 AM SPORTS INFORMATION DIRECTOR documented as of this encounter Care Teams Enrichment Director Relationship Specialty Start Date End Date Kun Cueva MD [address] [place] [address] PCP - General Family Medicine 11/17/20 Kun Cueva MD [address] [place] [address] Assigned PCP 11/21/20 Vonda Mendoza APRN RIFFLER TENDER [address] [place] [address] [address] Nurse Practitioner Neurology 07/27/21 Kun Cueva MD [address] [place] [address] Referring Physician Family Medicine 07/27/21 Heena Mederos CNP [address] [place] [address] [place] [address] Assigned Neuroscience Provider 05/17/23 Albert Mix, DejaD [address] [address] Pharmacist Pharmacist 07/07/24 Albert Mix, Will [address] [address] Assigned MTM Pharmacist 07/13/24 [place] [address] ELFEGO PURCELL, [address] [address] Assigned Musculoskeletal Provider 08/13/24 documented as of this encounter
--- OUTSIDE RECORDS SUMMARY | 2024-10-19 19:37 | XMS_ITS | Encounter Summary ---
Author Organization [place] Address [address] [place], [place] [address]. [place] [address] Care Team Providers Care Hot Man Name Role Phone Kun Cueva MD Primary Care Provider [phone] Kun Cueva MD Unavailable +[phone] Vonda Mendoza APRN HAZARDOUS MATERIAL TECHNICIAN Unavaila ble Kun Cueva MD Unavailable [phone] Heena Mederos HAZARDOUS MATERIAL TECHNICIAN Unavailable +[phone] Albert Mix PharmD Unavailable [phone] Albert Mix PharmD Unavailable [phone] Hector Vicente DO Unavailable [phone] Encounter Details Date Type Department Care Team (Late st Contact Info) Description 01/22/2023 [facility] Anya [facility] [address] [phone] Harvey Corrales MD [address] [place] [address] Social History Tobacco Use Types Packs/Day [...] Sex Assigned at Female 05/26/2019 4:02 PM CLERK TO JUSTICE Legal Sex Female 5:12 AM CLERK TO JUSTICE Gender Identity Female 05/26/2019 4:02 PM CLERK TO JUSTICE Sexual Orientation Straight 05/26/2019 4: 02 PM CLERK TO JUSTICE COVID-19 Exposure Response Date Recorded In the last 10 days, have yo u been in contact with someone who was confirmed or suspected to have Coronavirus/COVID-19? No / Unsure 01/16/2023 1:16 PM CDT documented as of this encounter Plan of Treatment Upcoming Encounters Date Type Department Care Team (Late st Contact Info) Description 11/20/2024 3:00 PM CDT Virtual Visit [facility] [address] [address] Harvey Corrales MD [address] [place] [address] 07/27/2025 3:10 PM CDT Office Visit [facility] [address] [place] [address] Kun Cueva MD [address] [place] [address] documented as of this encounter Visit Diagnoses Not on filedocumented in this encounter Additional Health Concerns Assessment Noted Time PHQ-9 Depression Total Score: 7 07/28/19 23 10:55 AM CDT documented as of this encounter Care Teams Hot Man Relationship Specialty Start Date End Date Kun Cueva MD [address] [place], [place] [phone] PCP - General Family Medicine 11/17/20 Kun Cueva MD [address] [address] Assigned PCP 11/21/20 Vonda Mendoza APRN HAZARDOUS MATERIAL TECHNICIAN [address] [place] [address] [address] Nurse Practitioner Neurology 07/27/21 Kun Cueva MD [address] [address] Referring Physician Family Medicine 07/27/21 Heena Mederos CNP [address] [place] [address] [place] [address] Assigned Neuroscience Provider 05/17/23 Albert Mix, Will [address] [address] Pharmacist Pharmacist 07/07/24 Albert Mix PharmD [address] [address] Assigned MTM Pharmacist 07/13/24 [place] [address] ELFEGO PURCELL, [address] [address] Assigned Musculoskeletal Provider 08/13/24 documented as of this encounter
--- OUTSIDE RECORDS SUMMARY | 2024-10-19 19:37 | XMS_ITS | Encounter Summary ---
Author Organization [place] Address [facility] [place] [address] Care Team Providers Care Flying Squad Worker Name Role Phone Jenny Ivey DO Primary Care Provider [phone] Jenny Ivey DO Unavailable [phone] Kun Cueva MD Primary Care Provider [phone] Eladio Gomes DPM Unavailable +[phone] Kun Cueva MD Unavailable +[phone] Vonda Mendoza APRN STUNTMAN Unavaila ble Kun Cueva MD Unavailable +[phone] Heena Mederos STUNTMAN Unavailable +[phone] Albert Mix PharmD Unavailable [phone] Albert Mix PharmD Unavailable + [phone] Hector Vicente DO Unavailable [phone] Encounter Details Date Type Department Care Team (Late st Contact Info) Description 07/02/2019 MyC Medical Advice [facility] 5[address] [place] [phone] Silvia Douglass CMA Social History Tobacco Use [...] Sex Assigned at Female 05/26/2019 4:02 PM ZIPPER MACHINE OPERATOR Legal Sex Female 5:12 AM ZIPPER MACHINE OPERATOR Gender Identity Female 05/26/2019 4:02 PM ZIPPER MACHINE OPERATOR Sexual Orientation Straight 05/26/2019 4: 02 PM ZIPPER MACHINE OPERATOR documented as of this encounter Plan of Treatment Upcoming Encounters Date Type Department Care Team (Late st Contact Info) Description 11/20/2024 3:00 PM CDT Virtual Visit [facility] [address] 200 [place] [phone] Harvey Corrales MD [address] [place] [address] 07/27/2025 3:10 PM CDT Office Visit [facility] [address] [place] [phone] Kun Cueva MD [address] [place] [address] documented as of this encounter Visit Diagnoses Not on filedocumented in this encounter Additional Health Concerns Infection Onset Date Last Indicated Resolved Time Rule Out COVID-19 08/19/2019 08/19/2019 09/18/2019 11:39 PM CDT Assessment Noted Time PHQ-9 Depression Total Score: 7 05/27/19 20 4:19 PM ZIPPER MACHINE OPERATOR documented as of this encounter Care Teams Flying Squad Worker Relationship Specialty Start Date End Date Jenny Ivey DO 5200 [place] [address] PCP - General Internal Medicine 09/30/18 11/16/20 Kun Cueva MD [address] [place] [address] PCP - General Family Medicine 11/17/20 Jenny Ivey DO 5[address] [place] [address] Assigned PCP 09/05/18 11/20/20 Eladio Gomes DPM 2945 [facility] [address], [place] [address] Assigned Musculoskeletal Provider 11/21/20 05/19/22 Kun Cueva MD [address] [place] [address] Assigned PCP 11/21/20 Vonda Mendoza APRN STUNTMAN [address] [place] [address] Nurse Practitioner Neurology 07/27/21 Kun Cueva MD [address] [place] [address] Referring Physician Family Medicine 07/27/21 Heena Mederos, NIDHI [address] [place] [address] JULIANA MCGEE [address] Assigned Neuroscience Provider 05/17/23 Albert Mix, PharmD [address] [address] Pharmacist Pharmacist 07/07/24 Albert Mix, PharmD [address] [address] Assigned MTM Pharmacist 07/13/24 [place] [address] ELFEGO PURCELL, [address] [address] Assigned Musculoskeletal Provider 08/13/24 documented as of this encounter
--- OUTSIDE RECORDS SUMMARY | 2024-10-19 19:37 | XMS_ITS | Encounter Summary ---
Author Organization [facility] Address [address] [place], [place] [address]. [place] [address] Care Team Providers Care Instrumentation Engineering Technician Name Role Phone Kun Cueva MD Primary Care Provider + [phone] Kun Cueva MD Unavailable +[phone] Vonda Mendoza APRN EVENT SALES ASSISTANT Unavaila ble Kun Cueva MD Unavailable +[phone] Heena Mederos EVENT SALES ASSISTANT Unavailable +[phone] Albert Mix PharmD Unavailable +[phone] Albert Mix PharmD Unavailable [phone] Hector Vicente DO Unavailable [phone] Encounter Details Date Type Department Care Team (Late st Contact Info) Description 03/28/2023 [facility] An[facility] [address] [address] Bisi Reese MA Social History Tobacco Use Types Packs/Day Years [...] PHQ-2 Answer Date Recorded PHQ-2 Score 0 03/28/2023 Adolescent Education Answer Date Record ed Getting School Help Needed Not on file 01/15 Comments No Sex and Gender Information Value Date Recorded Sex Assigned at Female 05/26/2019 4:02 PM CONTRACTS INTERN Legal Sex Female 5:12 AM CONTRACTS INTERN Gender Identity Female 05/26/2019 4:02 PM CONTRACTS INTERN Sexual Orientation Straight 05/26/2019 4: 02 PM CONTRACTS INTERN documented as of this encounter Plan of Treatment Upcoming Encounters Date Type Department Care Team (Late st Contact Info) Description 11/20/2024 3:00 PM CDT Virtual Visit [facility] [place] [address] [facility] [address] [place] [phone] Harvey Corrales MD 2945 [facility] 200 [place] [address] 07/27/2025 3:10 PM CDT Office Visit [facility] [address] [place] [address] Kun Cueva MD [address] [place] [address] documented as of this encounter Visit Diagnoses Not on filedocumented in this encounter Additional Health Concerns Assessment Noted Time PHQ-9 Depression Total Score: 7 07/28/19 23 10:55 AM CDT documented as of this encounter Care Teams Instrumentation Engineering Technician Relationship Specialty Start Date End Date Kun Cueva MD [address] [place] [address] PCP - General Family Medicine 11/17/20 Kun Cueva MD [address] [place] [address] Assigned PCP 11/21/20 Vonda Mendoza APRN EVENT SALES ASSISTANT 9[address] [facility] [id number] [place] [address] Nurse Practitioner Neurology 07/27/21 Kun Cueva MD [address] [place] [address] Referring Physician Family Medicine 07/27/21 Heena Mederos CNP [address] [place] [address] [place] [address] Assigned Neuroscience Provider 05/17/23 Albert Mix, PharmD [address] [id number] Pharmacist Pharmacist 07/07/24 Albert Mix, PharmD [address] [address] Assigned MTM Pharmacist 07/13/24 [place] [address] ELFEGO PURCELL, [address] [address] Assigned Musculoskeletal Provider 08/13/24 documented as of this encounter
--- OUTSIDE RECORDS SUMMARY | 2024-10-19 19:37 | XMS_ITS | Encounter Summary ---
Author Organization [place] Address [facility] [place] [address] Care Team Providers Care Special Needs Bus Driver Name Role Phone Jenny Ivey DO Primary Care Provider [phone] Jenny Ivey DO Unavailable [phone] Kun Cueva MD Primary Care Provider [phone] Eladio Gomes DPM Unavailable [phone] Kun Cueva MD Unavailable [phone] Vonda Mendoza APRN PRODUCT DEVELOPMENT TECHNICIAN Unavaila ble Kun Cueva MD Unavailable +[phone] Heena Mederos PRODUCT DEVELOPMENT TECHNICIAN Unavailable +[phone] Albert Mix PharmD Unavailable [phone] Albert Mix PharmD Unavailable + [phone] Hector Vicente DO Unavailable [phone] Encounter Details Date Type Department Care Team (Late st Contact Info) Description 10/29/2019 MyC Medical Advice [facility] 5[address] [place] [phone] Silvia Douglass CMA Social History Tobacco Use [...] Sex Assigned at Female 05/26/2019 4:02 PM BACK TUFTER Legal Sex Female 5:12 AM BACK TUFTER Gender Identity Female 05/26/2019 4:02 PM BACK TUFTER Sexual Orientation Straight 05/26/2019 4: 02 PM BACK TUFTER documented as of this encounter Plan of Treatment Upcoming Encounters Date Type Department Care Team (Late st Contact Info) Description 11/20/2024 3:00 PM CDT Virtual Visit [facility] [address] [place] [phone] Harvey Corrales MD [address] [place] [address] 07/27/2025 3:10 PM CDT Office Visit [facility] [address] [place] [address] Kun Cueva MD [address] [place] [address] documented as of this encounter Visit Diagnoses Not on filedocumented in this encounter Additional Health Concerns Assessment Noted Time PHQ-9 Depression Total Score: 8 11/10/19 20 7:08 AM CDT documented as of this encounter Care Teams Special Needs Bus Driver Relationship Specialty Start Date End Date Jenny Ivey DO 5[address] [place] [address] PCP - General Internal Medicine 09/30/18 11/16/20 Kun Cueva MD [address] [place], [place] [phone] PCP - General Family Medicine 11/17/20 Jenny Ivey DO [address] [place] [address] Assigned PCP 09/05/18 11/20/20 Eladio Gomes DPM 2945 [facility] [address] [place] [address] Assigned Musculoskeletal Provider 11/21/20 05/19/22 Kun Cueva MD [address] [address] Assigned PCP 11/21/20 Vonda Mendoza APRN PRODUCT DEVELOPMENT TECHNICIAN [address] [place], [place] [address], [place] [address] Nurse Practitioner Neurology 07/27/21 Kun Cueva MD [address] [address] Referring Physician Family Medicine 07/27/21 Heena Mederos CNP [address] [place] [address] JULIANA MCGEE [address] Assigned Neuroscience Provider 05/17/23 Albert Mix, PharmD [address] [address] Pharmacist Pharmacist 07/07/24 Albert Mix, PharmD [address] [address] Assigned MTM Pharmacist 07/13/24 [place] [address] ELFEGO PURCELL, [address] [address] Assigned Musculoskeletal Provider 08/13/24 documented as of this encounter
--- OUTSIDE RECORDS SUMMARY | 2024-10-19 19:37 | XMS_ITS | Encounter Summary ---
Author Organization [place] Address [address] [place], [place] [address]. [place] [address] Care Team Providers Care Motor Checker Name Role Phone Kun Cueva MD Primary Care Provider Kun Cueva MD Unavailable [phone] Vonda Mendoza APRN BUSINESS UNIT DIRECTOR Unavaila ble Kun Cueva MD Unavailable +[phone] Heena Mederos BUSINESS UNIT DIRECTOR Unavailable [phone] Albert Mix PharmD Unavailable +[phone] Albert Mix PharmD Unavailable [phone] Hector Vicente DO Unavailable [phone] Encounter Details Date Type Department Care Team (Late st Contact Info) Description 12/26/2022 Tita Valdovinos [facility] [address] [place] [phone] Kun Cueva MD [address] [place], [place] [phone] Social History Tobacco Use Types Packs/Day Years [...] Sex Assigned at Female 05/26/2019 4:02 PM AUDIO VISUAL DIRECTOR Legal Sex Female 5:12 AM AUDIO VISUAL DIRECTOR Gender Identity Female 05/26/2019 4:02 PM AUDIO VISUAL DIRECTOR Sexual Orientation Straight 05/26/2019 4: 02 PM AUDIO VISUAL DIRECTOR COVID-19 Exposure Response Date Recorded In the last 10 days, have yo u been in contact with someone who was confirmed or suspected to have Coronavirus/COVID-19? No / Unsure 12/29/2022 12:45 AM CDT documented as of this encounter Plan of Treatment Upcoming Encounters Date Type Department Care Team (Late st Contact Info) Description 11/20/2024 3:00 PM CDT Virtual Visit [facility] [address] [place] [address] Harvey Corrales MD [address] [place] [address] 07/27/2025 3:10 PM CDT Office Visit [facility] [address] [place] [address] Kun Cueva MD [address] [place] [address] documented as of this encounter Visit Diagnoses Diagnosis MICHEAL (generalized anxiety disorder) Generalized anxiety disorder documented in this encounter Additional Health Concerns Assessment Noted Time PHQ-9 Depression Total Score: 7 07/28/19 23 10:55 AM CDT documented as of this encounter Care Teams Motor Checker Relationship Specialty Start Date End Date Kun Cueva MD [address] [place] [address] PCP - General Family Medicine 11/17/20 Kun Cueva MD [address] [place] [address] Assigned PCP 11/21/20 Vonda Mendoza APRN BUSINESS UNIT DIRECTOR [address] [place] [address] [address] Nurse Practitioner Neurology 07/27/21 Kun Cueva MD 480 [facility] [address] [place] [address] Referring Physician Family Medicine 07/27/21 Heena Mederos CNP [address] [place] [address] [place] [address] Assigned Neuroscience Provider 05/17/23 Albert Mix, PharmD [address] [id number] Pharmacist Pharmacist 07/07/24 Albert Mix, PharmD [address] [address] Assigned MTM Pharmacist 07/13/24 [place] [address] ELFEGO PURCELL, [address] [address] Assigned Musculoskeletal Provider 08/13/24 documented as of this encounter
--- OUTSIDE RECORDS SUMMARY | 2024-10-19 19:37 | XMS_ITS | Encounter Summary ---
Author Organization [place] Address [address] [place], [place] [address]. [place] [address] Care Team Providers Care Fleet Technician Name Role Phone Kun Cueva MD Primary Care Provider Eladio Gomes DPM Unavailable Kun Cueva MD Unavailable Vonda Mendoza APRN CEO & CO FOUNDER Unavaila ble Kun Cueva MD Unavailable [phone] Heena Mederos CEO & CO FOUNDER Unavailable Albert Mix PharmD Unavailable [phone] Albert Mix PharmD Unavailable [phone] Hector Vicente DO Unavailable [phone] Encounter Details Date Type Department Care Team (Late st Contact Info) Description 06/05/2021 MyC Medical Advice [facility] [address] [place] [address] Kun Cueva MD [address] [place] [address] Social History Tobacco Use Types [...] Sex Assigned at Female 05/26/2019 4:02 PM IRONWORKER HELPER SHOP Legal Sex Female 5:12 AM IRONWORKER HELPER SHOP Gender Identity Female 05/26/2019 4:02 PM IRONWORKER HELPER SHOP Sexual Orientation Straight 05/26/2019 4: 02 PM IRONWORKER HELPER SHOP documented as of this encounter Plan of Treatment Upcoming Encounters Date Type Department Care Team (Late st Contact Info) Description 11/20/2024 3:00 PM CDT Virtual Visit [facility] Care [address] [place] [phone] Harvey Corrales MD [address] [place] [address] 07/27/2025 3:10 PM CDT Office Visit [facility] [address] [place] [address] Kun Cueva MD [address] [place] [address] documented as of this encounter Visit Diagnoses Not on filedocumented in this encounter Additional Health Concerns Assessment Noted Time PHQ-9 Depression Total Score: 14 021 7:02 AM IRONWORKER HELPER SHOP documented as of this encounter Care Teams Fleet Technician Relationship Specialty Start Date End Date Kun Cueva MD [address] [place], [place] [phone] PCP - General Family Medicine 11/17/20 Eladio Gomes DPM [address] [place] [address] [address] [place], [place] [id number] Assigned Musculoskeletal Provider 11/21/20 05/19/22 Kun Cueva MD [address] [facility] 96 [place] [address] Assigned PCP 11/21/20 Vonda Mendoza APRN CEO & CO FOUNDER [address] [place] [address], [place] [address] Nurse Practitioner Neurology 07/27/21 Kun Cueva MD [address] [facility] [facility] 96 [place] [address] Referring Physician Family Medicine 07/27/21 Heena Mederos CNP [address] [place] [address] [place] [address] Assigned Neuroscience Provider 05/17/23 Albert Mix, DejaD [address] [address] Pharmacist Pharmacist 07/07/24 Albert Mix, DejaD [address] [address] Assigned MTM Pharmacist 07/13/24 [place] [address] ELFEGO PURCELL, [address] [address] Assigned Musculoskeletal Provider 08/13/24 documented as of this encounter
--- OUTSIDE RECORDS SUMMARY | 2024-10-19 19:37 | XMS_ITS | Encounter Summary ---
Author Organization [place] Address [address] [place] [address] [place] [address] Care Team Providers Care Wheat Grower Name Role Phone Kun Cueva MD Primary Care Provider Kun Cueva MD Unavailable [phone] Vonda Mendoza APRN SUBSTATION TECHNICIAN Unavaila ble Kun Cueva MD Unavailable [phone] Heena Mederos SUBSTATION TECHNICIAN Unavailable [phone] Albert Mix PharmD Unavailable [phone] Albert Mix PharmD Unavailable [phone] Hector Vicente DO Unavailable [phone] Encounter Details Date Type Department Care Team (Late st Contact Info) Description 06/19/2024 MyC Medical Advice [facility] [address] [place] [phone] Kun Cueva MD [address] [place] [address] Social History Tobacco Use Types [...] re latives? Once a week 07/17/2023 Attends Christianity Services Not on file 07/16 Active Member [...] Answer Date Recorded PHQ-2 Score 2 05/09/2024 [facility] [place] of Occupat ional Health - Occupational Stress [...] an overnight group home, or couch-surfing.) Yes 07/17/2023 Are you [...] Sex Assigned at Female 05/26/2019 4:02 PM VICE CHAIRMAN Legal Sex Female 5:12 AM VICE CHAIRMAN Gender Identity Female 05/26/2019 4:02 PM VICE CHAIRMAN Sexual Orientation Straight 05/26/2019 4: 02 PM VICE CHAIRMAN documented as of this encounter Plan of Treatment Upcoming Encounters Date Type Department Care Team (Late st Contact Info) Description 11/20/2024 3:00 PM CDT Virtual Visit [facility] Bariatrics Care [address] [address] Harvey Corrales MD [address] [place] [address] 07/27/2025 3:10 PM CDT Office Visit [facility] [address] [place] [address] Kun Cueva MD [address] [place] [address] documented as of this encounter Visit Diagnoses Not on filedocumented in this encounter Additional Health Concerns Assessment Noted Time PHQ-9 Depression Total Score: 7 05/09/19 25 7:52 AM VICE CHAIRMAN documented as of this encounter Care Teams Wheat Grower Relationship Specialty Start Date End Date Kun Cueva MD [address] [address] PCP - General Family Medicine 11/17/20 Kun Cueva MD [address] [address] Assigned PCP 11/21/20 Vonda Mendoza APRN SUBSTATION TECHNICIAN [address] [place] [address] [address] Nurse Practitioner Neurology 07/27/21 Kun Cueva MD [address] [address] Referring Physician Family Medicine 07/27/21 Heena Mederos CNP [address] [place] [address] [place] [address] Assigned Neuroscience Provider 05/17/23 Albert Mix, DejaD [address] [address] Pharmacist Pharmacist 07/07/24 Albert Mix PharmD [address] [address] Assigned MTM Pharmacist 07/13/24 [place] [address] ELFEGO PURCELL, [address] [address] Assigned Musculoskeletal Provider 08/13/24 documented as of this encounter
--- OUTSIDE RECORDS SUMMARY | 2024-10-19 19:37 | XMS_ITS | Encounter Summary ---
Author Organization [place] Address [address] [place] [address]. [place] [address] Care Team Providers Care Family Counselor Name Role Phone Jenny Ivey DO Primary Care Provider [phone] Jenny Ivey DO Unavailable [phone] Kun Cueva MD Primary Care Provider [phone] Eladio Gomes DPM Unavailable [phone] Kun Cueva MD Unavailable [phone] Vonda Mendoza APRN ASSEMBLER SMALL PRODUCTS Unavaila ble Kun Cueva MD Unavailable [phone] Heena Mederos ASSEMBLER SMALL PRODUCTS Unavailable [phone] Albert Mix PharmD Unavailable [phone] Albert Mix PharmD Unavailable [phone] Hector Vicente DO Unavailable [phone] Reason for Visit * Reason Onset Date Comments Refill Request 10/16/2019 Encounter Details Date Type Department Care Team (Late st Contact Info) Description 10/16/2019 [facility] [address] [place] [phone] Jenny Ivey DO [address] [place], [place] [id number] Refill Request Social History Tobacco Use Types [...] Sex Assigned at Female 05/26/2019 4:02 PM BRASS WIND INSTRUMENT MAKER Legal Sex Female 5:12 AM BRASS WIND INSTRUMENT MAKER Gender Identity Female 05/26/2019 4:02 PM BRASS WIND INSTRUMENT MAKER Sexual Orientation Straight 05/26/2019 4: 02 PM BRASS WIND INSTRUMENT MAKER documented as of this encounter Plan of Treatment Upcoming Encounters Date Type Department Care Team (Late st Contact Info) Description 11/20/2024 3:00 PM CDT Virtual Visit [facility] Surgery Clinic and Bariatrics Care [address] [address] Harvey Corrales MD [address] [place] [address] 07/27/2025 3:10 PM CDT Office Visit [facility] [address] [place] [address] Kun Cueva MD [address] [place] [address] documented as of this encounter Visit Diagnoses Diagnosis MICHEAL (generalized anxiety disorder) Generalized anxiety disorder documented in this encounter Additional Health Concerns Assessment Noted Time PHQ-9 Depression Total Score: 7 05/27/19 20 4:19 PM BRASS WIND INSTRUMENT MAKER documented as of this encounter Care Teams Family Counselor Relationship Specialty Start Date End Date Jenny Ivey DO [address] [place] [address] PCP - General Internal Medicine 09/30/18 11/16/20 Kun Cueva MD [address] [place] [address] PCP - General Family Medicine 11/17/20 [place] [address] [place] [address] Assigned PCP 09/05/18 11/20/20 Eladio Gomes DPM [address] [place] [address] Assigned Musculoskeletal Provider 11/21/20 05/19/22 Kun Cueva MD [address] [place] [address] Assigned PCP 11/21/20 Vonda Mendoza APRN ASSEMBLER SMALL PRODUCTS [address] [place], [place] [address] [address] Nurse Practitioner Neurology 07/27/21 Kun Cueva MD [address] [place] [address] Referring Physician Family Medicine 07/27/21 Heena Mederos, NIDHI [address] [place] [address] [place] [address] Assigned Neuroscience Provider 05/17/23 Albert Mix, DejaD [address] [address] Pharmacist Pharmacist 07/07/24 Albert Mix, DejaD [address] [address] Assigned MTM Pharmacist 07/13/24 [place] [address] ELFEGO PRUCELL, [address] [address] Assigned Musculoskeletal Provider 08/13/24 documented as of this encounter
--- OUTSIDE RECORDS SUMMARY | 2024-10-19 19:37 | XMS_ITS | Encounter Summary ---
Author Organization [place] Address [address] [place], [place] [address]e. [place] [address] Care Team Providers Care Digital Sales Representative Name Role Phone Kun Cueva MD Primary Care Provider [phone] Kun Cueva MD Unavailable [phone] Vonda Mendoza APRN NUCLEAR MEDICINE CHIEF TECHNOLOGIST Unavaila ble Kun Cueva MD Unavailable [phone] Heena Mederos NUCLEAR MEDICINE CHIEF TECHNOLOGIST Unavailable [phone] Albert Mix PharmD Unavailable [phone] Albert Mix PharmD Unavailable [phone] Hector Vicente DO Unavailable [phone] Encounter Details Date Type Department Care Team (Late st Contact Info) Description 12/27/2022 Ben Medical Advice [facility] [address] [place] [phone] Heena Mederos, NUCLEAR MEDICINE CHIEF TECHNOLOGIST [address] [facility] [place]UL[place] MCGEE [id number] Social History Tobacco Use Types Packs/Day Years [...] Sex Assigned at Female 05/26/2019 4:02 PM BROADCAST PRODUCER Legal Sex Female 5:12 AM BROADCAST PRODUCER Gender Identity Female 05/26/2019 4:02 PM BROADCAST PRODUCER Sexual Orientation Straight 05/26/2019 4: 02 PM BROADCAST PRODUCER COVID-19 Exposure Response Date Recorded In the [...] [facility] [address] [place] [phone] Harvey Corrales MD [address] [place] [address] 07/27/2025 3:10 PM CDT Office Visit [facility] [address] [place] [address] Kun Cueva MD [address] [place] [address] documented as of this encounter Visit Diagnoses Not on filedocumented in this encounter Additional Health Concerns Assessment Noted Time PHQ-9 Depression Total Score: 7 07/28/19 23 10:55 AM CDT documented as of this encounter Care Teams Digital Sales Representative Relationship Specialty Start Date End Date Kun Cueva MD [address] [place], [place] [phone] PCP - General Family Medicine 11/17/20 Kun Cueva MD [address] [place] [address] Assigned PCP 11/21/20 Vonda Mendoza APRN NUCLEAR MEDICINE CHIEF TECHNOLOGIST [address] [place], [place] [address] [address] Nurse Practitioner Neurology 07/27/21 Kun Cueva MD 480 [facility] 96 [place] [address] Referring Physician Family Medicine 07/27/21 Heena Mederos CNP [address] [place] [address] [place] [address] Assigned Neuroscience Provider 05/17/23 Albert Mix, PharmD [address] [id number] Pharmacist Pharmacist 07/07/24 Albert Mix, PharmD [address] [address] Assigned MTM Pharmacist 07/13/24 [place] [address] ELFE[address] PURCELL, [address] [address] Assigned Musculoskeletal Provider 08/13/24 documented as of this encounter
--- OUTSIDE RECORDS SUMMARY | 2024-10-19 19:37 | XMS_ITS | Encounter Summary ---
Author Organization [place] Address [address] [place], [place] [address]e. [place] [address] Care Team Providers Care Oxygen Equipment Aide Name Role Phone Kun Cueva MD Primary Care Provider Eladio Gomes DPM Unavailable Kun Cueva MD Unavailable [phone] Vonda Mendoza APRN WINDING LATHE OPERATOR Unavaila ble Kun Cueva MD Unavailable Heena Mederos WINDING LATHE OPERATOR Unavailable Albert Mix PharmD Unavailable [phone] Albert Mix PharmD Unavailable [phone] Hector Vicente DO Unavailable [phone] Encounter Details Date Type Department Care Team (Late st Contact Info) Description 12/08/2020 MyC Medical Advice [facility] [address] [place] [address] Kun Cueva MD [address] [place] [address] Social History Tobacco Use Types [...] Sex Assigned at Female 05/26/2019 4:02 PM GAS BOOSTER ENGINEER Legal Sex Female 5:12 AM GAS BOOSTER ENGINEER Gender Identity Female 05/26/2019 4:02 PM GAS BOOSTER ENGINEER Sexual Orientation Straight 05/26/2019 4: 02 PM GAS BOOSTER ENGINEER COVID-19 Exposure Response Date Recorded In the last month, have you been in contact with someone who was confirmed or suspected to have Coronavirus / COVID-19? No / Unsure 11/23/2020 2:39 PM CDT documented as of this encounter Plan of Treatment Upcoming Encounters Date Type Department Care Team (Late st Contact Info) Description 11/20/2024 3:00 PM CDT Virtual Visit [facility] Surgery Clinic and Bariatrics Care [address] [address] Harvey Corrales MD [address] [place] [address] 07/27/2025 3:10 PM CDT Office Visit [facility] [address] [place] [address] Kun Cueva MD [address] [place] [address] documented as of this encounter Visit Diagnoses Not on filedocumented in this encounter Additional Health Concerns Assessment Noted Time PHQ-9 Depression Total Score: 2 09/17/19 21 4:37 PM CDT documented as of this encounter Care Teams Oxygen Equipment Aide Relationship Specialty Start Date End Date Kun Cueva MD [address] [place], [place] [phone] PCP - General Family Medicine 11/17/20 Eladio Gomes DPM [address] [facility] [address] [place] [address] Assigned Musculoskeletal Provider 11/21/20 05/19/22 Kun Cueva MD 480 [facility] [address] [place] [address] Assigned PCP 11/21/20 Vonda Mendoza APRN WINDING LATHE OPERATOR [address] [place] [address] Nurse Practitioner Neurology 07/27/21 Kun Cueva MD 480 [facility] [address] [place] [address] Referring Physician Family Medicine 07/27/21 Heena Mederos CNP [address] [place] [address] [place]CG[place] [address] Assigned Neuroscience Provider 05/17/23 Albert Mix, DejaD [address] [address] Pharmacist Pharmacist 07/07/24 Albert Mix, DejaD [address] [address] Assigned MTM Pharmacist 07/13/24 [place] [address] ELFEGO PURCELL, [address] [address] Assigned Musculoskeletal Provider 08/13/24 documented as of this encounter
--- OUTSIDE RECORDS SUMMARY | 2024-10-19 19:37 | XMS_ITS | Encounter Summary ---
Author Organization [place] Address [facility] [place] [address] Care Team Providers Care Dental Appliance Repairer Name Role Phone Jenny Ivey DO Primary Care Provider [phone] Jenny Ivey DO Unavailable [phone] Kun Cueva MD Primary Care Provider [phone] Eladio Gomes DPM Unavailable [phone] Kun Cueva MD Unavailable [phone] Vonda Mendoza APRN LEGAL WORD PROCESSOR Unavaila ble Kun Cueva MD Unavailable [phone] Heena Mederos LEGAL WORD PROCESSOR Unavailable [phone] Albert Mix PharmD Unavailable [phone] Albert Mix PharmD Unavailable + [phone] Hector Vicente DO Unavailable [phone] Encounter Details Date Type Department Care Team (Late st Contact Info) Description 12/03/2019 MyC Medical Advice [facility] [address] [place] [phone] Silvia Douglass CMA Social History Tobacco Use [...] Sex Assigned at Female 05/26/2019 4:02 PM ARCHITECT MARINE Legal Sex Female 5:12 AM ARCHITECT MARINE Gender Identity Female 05/26/2019 4:02 PM ARCHITECT MARINE Sexual Orientation Straight 05/26/2019 4: 02 PM ARCHITECT MARINE documented as of this encounter Plan of Treatment Upcoming Encounters Date Type Department Care Team (Late st Contact Info) Description 11/20/2024 3:00 PM CDT Virtual Visit [facility] [address] [place] [phone] Harvey Corrales MD [address] [place] [address] 07/27/2025 3:10 PM CDT Office Visit [facility] [address] [place] [address] Kun Cueva MD [address] [place] [address] documented as of this encounter Visit Diagnoses Not on filedocumented in this encounter Additional Health Concerns Assessment Noted Time PHQ-9 Depression Total Score: 8 11/10/19 20 7:08 AM CDT documented as of this encounter Care Teams Dental Appliance Repairer Relationship Specialty Start Date End Date Jenny Ivey DO [address] [place] [address] PCP - General Internal Medicine 09/30/18 11/16/20 Kun Cueva MD [address] [place], [place] [phone] PCP - General Family Medicine 11/17/20 Jenny Ivey DO [address] [place] [address] Assigned PCP 09/05/18 11/20/20 Eladio Gomes DPM 29[address] [facility] [address] [place] [address] Assigned Musculoskeletal Provider 11/21/20 05/19/22 Kun Cueva MD [address] [address] Assigned PCP 11/21/20 Vonda Mendoza APRN LEGAL WORD PROCESSOR [address] [place], [place] [address] [address] Nurse Practitioner Neurology 07/27/21 Kun Cueva MD [address] [address] Referring Physician Family Medicine 07/27/21 Heena Mederos CNP [address] [place] [address] [place]CG[place] [address] Assigned Neuroscience Provider 05/17/23 Albert Mix, PharmD [address] [address] Pharmacist Pharmacist 07/07/24 Albert Mix, PharmD [address] [address] Assigned MTM Pharmacist 07/13/24 [place] [address] ELFEGO PURCELL, [address] [address] Assigned Musculoskeletal Provider 08/13/24 documented as of this encounter
--- OUTSIDE RECORDS SUMMARY | 2024-10-19 19:38 | XMS_ITS | Encounter Summary ---
Author Organization [place] Address [address] [place] [address] [place] [address] Care Team Providers Care Welding Specialist Name Role Phone Kun Cueva MD Primary Care Provider Kun Cueva MD Unavailable [phone] Vonda Mendoza APRN SOCIAL SCIENCES INSTRUCTOR Unavaila ble Kun Cueva MD Unavailable [phone] Heena Mederos SOCIAL SCIENCES INSTRUCTOR Unavailable [phone] Albert Mix PharmD Unavailable [phone] Albert Mix PharmD Unavailable [phone] Hector Vicente DO Unavailable [phone] Encounter Details Date Type Department Care Team (Late st Contact Info) Description 06/10/2024 MyC Medical Advice [facility] [address] [place] [phone] Kun Cueva MD [address] [place] [address] Social History Tobacco Use Types [...] re latives? Once a week 07/17/2023 Attends Religion Services Not on file 07/16 Active Member [...] Date Recorded PHQ-2 Score 2 05/09/2024 [facility] [place] of Occupat ional Health - Occupational Stress [...] Sex Assigned at Female 05/26/2019 4:02 PM BEEF GRINDER Legal Sex Female 5:12 AM BEEF GRINDER Gender Identity Female 05/26/2019 4:02 PM BEEF GRINDER Sexual Orientation Straight 05/26/2019 4: 02 PM BEEF GRINDER documented as of this encounter Miscellaneous Notes * Telephone Encounter - Reno Hannon RN - 06/10/2024 3:27 PM CST Images from the original note were not included. Per [facility] note 11/23/20 GRINDER documented in this encounter Plan of Treatment Upcoming Encounters Date Type Department Care Team (Late st Contact Info) Description 11/20/2024 3:00 PM CDT Virtual Visit [facility] [address] [place] [address] Harvey Corrales MD [address] [place] [address] 200 [place] [address] 07/27/2025 3:10 PM CDT Office Visit [facility] [address] [place] [phone] Kun Cueva MD [address] [place], [place] [address] documented as of this encounter Visit Diagnoses Not on filedocumented in this encounter Additional Health Concerns Assessment Noted Time PHQ-9 Depression Total Score: 7 05/09/19 25 7:52 AM BEEF GRINDER documented as of this encounter Care Teams Welding Specialist Relationship Specialty Start Date End Date Kun Cueva MD [address] [place] [address] PCP - General Family Medicine 11/17/20 Kun Cueva MD [address] [place] [address] Assigned PCP 11/21/20 Vonda Mendoza APRN SOCIAL SCIENCES INSTRUCTOR [address] [place] [address] Nurse Practitioner Neurology 07/27/21 Kun Cueva MD 480 [facility] [address] [place], [place] [address] Referring Physician Family Medicine 07/27/21 Heena Mederos CNP [address] [place] [address] [place] [address] Assigned Neuroscience Provider 05/17/23 Albert Mix, DejaD [address] [address] Pharmacist Pharmacist 07/07/24 Albert Mix, DejaD [address] [address] Assigned MTM Pharmacist 07/13/24 [place] [address] ELFEGO PURCELL, [address] [address] Assigned Musculoskeletal Provider 08/13/24 documented as of this encounter
--- OUTSIDE RECORDS SUMMARY | 2024-10-19 19:38 | XMS_ITS | Encounter Summary ---
Author Organization [place] Address [address] [place], [place] [address]e. [place] [address] Care Team Providers Care Gun Mechanic Name Role Phone Kun Cueva MD Primary Care Provider [phone] Kun Cueva MD Unavailable [phone] Vonda Mendoza APRN PERSONAL LINES INSURANCE AGENT Unavaila ble Kun Cueva MD Unavailable [phone] Heena Mederos PERSONAL LINES INSURANCE AGENT Unavailable [phone] Albert Mix PharmD Unavailable [phone] Albert Mix PharmD Unavailable [phone] Hector Vicente DO Unavailable [phone] Encounter Details Date Type Department Care Team (Late st Contact Info) Description 04/10/2024 [facility] [address] [place] [phone] Harvey Corrales MD [address] [place] [address] Social History Tobacco Use Types Packs/Day [...] re latives? Once a week 07/17/2023 Attends Buddhist Services Not on file 07/16 Active Member [...] Answer Date Recorded PHQ-2 Score 2 12/20/2023 [facility] of Occupat ional Health - [...] Sex Assigned at Female 05/26/2019 4:02 PM MARKET MANAGER Legal Sex Female 5:12 AM MARKET MANAGER Gender Identity Female 05/26/2019 4:02 PM MARKET MANAGER Sexual Orientation Straight 05/26/2019 4: 02 PM MARKET MANAGER documented as of this encounter Plan of Treatment Upcoming Encounters Date Type Department Care Team (Late st Contact Info) Description 11/20/2024 3:00 PM CDT Virtual Visit [facility] [address] [phone] Harvey Corrales MD [address] [place] [address] 07/27/2025 3:10 PM CDT Office Visit [facility] [address] [place] [address] Kun Cueva MD [address] [place], [place] [phone] documented as of this encounter Visit Diagnoses Not on filedocumented in this encounter Additional Health Concerns Assessment Noted Time PHQ-9 Depression Total Score: 14 024 9:18 AM CDT documented as of this encounter Care Teams Gun Mechanic Relationship Specialty Start Date End Date Kun Cueva MD [address] [place] [address] PCP - General Family Medicine 11/17/20 Kun Cueva MD [address] [place] [address] Assigned PCP 11/21/20 Vonda Mendoza APRN PERSONAL LINES INSURANCE AGENT [address] [place], [place] [address], [place] [address] Nurse Practitioner Neurology 07/27/21 Kun Cueva MD [address] [place] [address] Referring Physician Family Medicine 07/27/21 Heena Mederos CNP [address] [place] [address] [place] [address] Assigned Neuroscience Provider 05/17/23 Albert Mix, DejaD [address] [address] Pharmacist Pharmacist 07/07/24 Albert Mix, Will [address] [address] Assigned MTM Pharmacist 07/13/24 [place] [address] ELFEGO PURCELL, [address] [address] Assigned Musculoskeletal Provider 08/13/24 documented as of this encounter
--- OUTSIDE RECORDS SUMMARY | 2024-10-19 19:38 | XMS_ITS | Encounter Summary ---
Author Organization [facility] Address [address] [place], [place] [address]e. [place] [address] Care Team Providers Care Dental Hygiene Instructor Name Role Phone Kun Cueva MD Primary Care Provider Eladio Gomes DPM Unavailable Kun Cueva MD Unavailable Vonda Mendoza APRN AUTOMOBILE CLUB MEMBERSHIP SALES AGENT Unavaila ble Kun Cueva MD Unavailable Heena Mederos AUTOMOBILE CLUB MEMBERSHIP SALES AGENT Unavailable Albert Mix PharmD Unavailable [phone] Albert Mix PharmD Unavailable [phone] Hector Vicente DO Unavailable [phone] Encounter Details Date Type Department Care Team (Late st Contact Info) Description 12/27/2021 [facility] [address] [place] [phone] Kun Cueva MD [address] [place] [address] Social History Tobacco Use Types [...] Sex Assigned at Female 05/26/2019 4:02 PM PLATE MILL HAND Legal Sex Female 5:12 AM PLATE MILL HAND Gender Identity Female 05/26/2019 4:02 PM PLATE MILL HAND Sexual Orientation Straight 05/26/2019 4: 02 PM PLATE MILL HAND documented as of this encounter Miscellaneous Notes * Telephone Encounter - Lennie Acevedo RN - 12/27/2021 7:55 PM CDT Routing refill request to provider for review/approval because: Labs not current: cbc Last Written Prescription Date: 05/09/21 Last Fill Quantity: 180, # refills: 1 Last office visit provider: 05/09/21 Requested Prescriptions Pending Prescriptions Disp Refills ??? lamoTRIgine (LAMICTAL) 100 MG tablet 180 tablet 1 Sig: Take 1 tablet (100 mg) by mouth 2 times daily Anti-Seizure Meds Protocol Failed - 12/27/2021 1:08 PM Failed - Review Authorizing provider's last note. Refer to last progress notes: confirm request is for original authorizing provider (cannot be through other providers). Failed - Normal CBC on file in past 26 months Recent Labs Lab Test 10/03/18 2315 WBC 8.7 RBC 4.66 HGB 13.7 HCT 42.2 PLT 282 Failed - Normal platelet count on file in past 26 months Recent Labs Lab Test 10/03/18 2315 PLT 282 Passed - Recent (12 mo) or future [...] section of the refill encounter. Passed - Normal ALT or AST on file in past 26 months Recent Labs Lab Test 05/28/20 0920 ALT 18 Recent Labs Lab Test 05/28/20 0920 AST 21 Passed - Medication is active on med list Passed - No active on record Passed - No positive test in last 12 months Lennie Acevedo RN 12/27/21 7:56 PM documented in this encounter Plan of Treatment Upcoming Encounters Date Type Department Care Team (Late st Contact Info) Description 11/20/2024 3:00 PM CDT Virtual Visit [facility] [place] [address] [facility] [address] [place] [address] [place] [address] [place] [address] 200 [place] [address] 07/27/2025 3:10 PM CDT Office Visit [facility] [address] [place] [address] Kun Cueva MD [address] [place] [address] documented as of this encounter Visit Diagnoses Diagnosis Moderate episode of recurrent major depressive disorder (H) documented in this encounter Additional Health Concerns Assessment Noted Time PHQ-9 Depression Total Score: 14 021 7:02 AM PLATE MILL HAND documented as of this encounter Care Teams Dental Hygiene Instructor Relationship Specialty Start Date End Date Kun Cueva MD [address] [place] [address] PCP - General Family Medicine 11/17/20 Eladio Gomes DPM [facility] [address] [place] [address] Assigned Musculoskeletal Provider 11/21/20 05/19/22 Kun Cueva MD [address] [place] [address] Assigned PCP 11/21/20 Vonda Mendoza APRN AUTOMOBILE CLUB MEMBERSHIP SALES AGENT [address] [facility] [address] Nurse Practitioner Neurology 07/27/21 Kun Cueva MD [address] [place] [address] [address] [place] [address] Referring Physician Family Medicine 07/27/21 Heena Mederos, NIDHI [address] [place] [address] [place] [address] Assigned Neuroscience Provider 05/17/23 Albert Mix, DejaD [address] [address] Pharmacist Pharmacist 07/07/24 Albert Mix, Will [address] [address] Assigned MTM Pharmacist 07/13/24 [place] [address] ELFEGO PURCELL, [address] [address] Assigned Musculoskeletal Provider 08/13/24 documented as of this encounter
--- OUTSIDE RECORDS SUMMARY | 2024-10-19 19:38 | XMS_ITS | Encounter Summary ---
Author Organization [place] Address [address] [place] [address]. [place] [address] Care Team Providers Care Imcu Nurse Name Role Phone Jenny Ivey DO Primary Care Provider [phone] Jenny Ivey DO Unavailable [phone] Kun Cueva MD Primary Care Provider [phone] Eladio Gomes DPM Unavailable [phone] Kun Cueva MD Unavailable [phone] Vonda Mendoza APRN QUILT SEWER Unavaila ble Kun Cueva MD Unavailable [phone] Heena Mederos QUILT SEWER Unavailable [phone] Albert Mix PharmD Unavailable [phone] Albert Mix PharmD Unavailable [phone] Hector Vicente DO Unavailable [phone] Reason for Visit * Reason Onset Date Comments Refill Request 10/18/2018 Encounter Details Date Type Department Care Team (Late st Contact Info) Description 10/18/2018 Ben Valdovinos [facility] [address] [place] [phone] Jenny Ivey DO [address] [place], [place] [phone] Refill Request Social History Tobacco Use Types [...] Sex Assigned at Female 05/26/2019 4:02 PM WOOD PATTERNMAKER Legal Sex Female 5:12 AM WOOD PATTERNMAKER Gender Identity Female 05/26/2019 4:02 PM WOOD PATTERNMAKER Sexual Orientation Straight 05/26/2019 4: 02 PM WOOD PATTERNMAKER documented as of this encounter Miscellaneous Notes * Telephone Encounter - June Martinez - 10/21/2018 1:41 PM CDT Refills remaining at the pharmacy documented in this encounter Plan of Treatment Upcoming Encounters Date Type Department Care Team (Late st Contact Info) Description 11/20/2024 3:00 PM CDT Virtual Visit [facility] [address] [phone] Harvey Corrales MD [address] [place] [address] 07/27/2025 3:10 PM CDT Office Visit [facility] [address] [place] [phone] Kun Cueva MD [address] [place], [place] [phone] documented as of this encounter Visit Diagnoses Diagnosis MICHEAL (generalized anxiety disorder) Generalized anxiety disorder documented in this encounter Additional Health Concerns Infection Onset Date Last Indicated Resolved Time Rule Out COVID-19 08/19/2019 08/19/2019 09/18/2019 11:39 PM CDT Assessment Noted Time PHQ-9 Depression Total Score: 11 019 4:19 PM CDT documented as of this encounter Care Teams Imcu Nurse Relationship Specialty Start Date End Date Jenny Ivey DO [address] [place] [address] PCP - General Internal Medicine 09/30/18 11/16/20 Kun Cueva MD [address] [place] [address] PCP - General Family Medicine 11/17/20 Jenny Ivey DO [address] [place] [address] Assigned PCP 09/05/18 11/20/20 Eladio Gomes DPM [address] [place] [address], [place] [address] Assigned Musculoskeletal Provider 11/21/20 05/19/22 Kun Cueva MD [address] [place] [address] Assigned PCP 11/21/20 Vonda Mendoza APRN QUILT SEWER [address] [place], [place] [address] [address] Nurse Practitioner Neurology 07/27/21 Kun Cueva MD [address] [place] [address] Referring Physician Family Medicine 07/27/21 Heena Mederos, QUILT SEWER [address] [facility] [place] [address] Assigned Neuroscience Provider 05/17/23 Albert Mix, PharmD [address] [address] Pharmacist Pharmacist 07/07/24 Albert Mix, Will [address] [address] Assigned [place] Pharmacist 07/13/24 [place] [address] ELFEGO PURCELL, [address] [address] Assigned Musculoskeletal Provider 08/13/24 documented as of this encounter
--- OUTSIDE RECORDS SUMMARY | 2024-10-19 19:38 | XMS_ITS | Encounter Summary ---
Author Organization [place] Address [address] [place] [address] [place] [address] Care Team Providers Care Carton Waxing Machine Operator Name Role Phone Kun Cueva MD Primary Care Provider Kun Cueva MD Unavailable [phone] Vonda Mendoza APRN DEMOLITION EXPERT Unavaila ble Kun Cueva MD Unavailable [phone] Heena Mederos DEMOLITION EXPERT Unavailable [phone] Albert Mix PharmD Unavailable [phone] Albert Mix PharmD Unavailable [phone] Hector Vicente DO Unavailable [phone] Encounter Details Date Type Department Care Team (Late st Contact Info) Description 05/30/2024 [facility] Medical Advice [facility] [address] [place] [phone] Kun Cueva MD [address] [place] [address] Social History Tobacco Use Types [...] re latives? Once a week 07/17/2023 Attends Gnosticist Services Not on file 07/16 Active Member [...] Answer Date Recorded PHQ-2 Score 2 05/09/2024 [facility] of Occupat ional Health - Occupational Stress [...] in an abandoned building, in an overnight prison, or couch-surfing.) Yes 07/17/2023 Are you worried [...] Assigned at Female 05/26/2019 4:02 PM DIRECTOR OF LITIGATION Legal Sex Female 5:12 AM DIRECTOR OF LITIGATION Gender Identity Female 05/26/2019 4:02 PM DIRECTOR OF LITIGATION Sexual Orientation Straight 05/26/2019 4: 02 PM DIRECTOR OF LITIGATION documented as of this encounter Plan of Treatment Upcoming Encounters Date Type Department Care Team (Late st Contact Info) Description 11/20/2024 3:00 PM CDT Virtual Visit [facility] [address] [phone] Harvey Corrales MD [address] [place] [address] 07/27/2025 3:10 PM CDT Office Visit [facility] [address] [place] [address] Kun Cueva MD [address] [place] [address] documented as of this encounter Visit Diagnoses Not on filedocumented in this encounter Additional Health Concerns Assessment Noted Time PHQ-9 Depression Total Score: 7 05/09/19 25 7:52 AM DIRECTOR OF LITIGATION documented as of this encounter Care Teams Carton Waxing Machine Operator Relationship Specialty Start Date End Date Kun Cueva MD [address] [address] PCP - General Family Medicine 11/17/20 Kun Cueva MD [address] [address] Assigned PCP 11/21/20 Vonda Mendoza APRN DEMOLITION EXPERT [address] [place], [place] [id number] [address] Nurse Practitioner Neurology 07/27/21 Kun Cueva MD [address] [address] Referring Physician Family Medicine 07/27/21 Heena Mederos CNP [address] [place] [address] [place] [address] Assigned Neuroscience Provider 05/17/23 Albert Mix, DejaD [address] [address] Pharmacist Pharmacist 07/07/24 Albert Mix PharmD [address] [address] Assigned MTM Pharmacist 07/13/24 [place] [address] ELFEGO PURCELL, [address] [address] Assigned Musculoskeletal Provider 08/13/24 documented as of this encounter
--- OUTSIDE RECORDS SUMMARY | 2024-10-19 19:38 | XMS_ITS | Encounter Summary ---
Author Organization [place] Address [address] [place], [place] [address]. [place] [address] Care Team Providers Care Eligibility Specialist Name Role Phone Kun Cueva MD Primary Care Provider Kun Cueva MD Unavailable [phone] Vonda Mendoza APRN NAIL TECHNICIAN Unavaila ble Kun Cueva MD Unavailable [phone] Heena Mederos NAIL TECHNICIAN Unavailable [phone] Albert Mix PharmD Unavailable [phone] Albert Mix PharmD Unavailable [phone] Hector Vicente DO Unavailable [phone] Encounter Details Date Type Department Care Team (Late st Contact Info) Description 03/28/2024 MyC Medical Advice [facility] [address] [place] [phone] Kun Cueva MD [address] [place] [address] MICHEAL (generalized anxiety disorder); Insomnia, unspecified type Social History Tobacco Use Types Packs/Day Years [...] re latives? Once a week 07/17/2023 Attends Anabaptist Services Not on file 07/16 Active Member [...] Answer Date Recorded PHQ-2 Score 2 12/20/2023 [facility] [place] of Occupat ional Health - Occupational Stress [...] in an overnight snf, or couch-surfing.) Yes 07/17/2023 Are you worried [...] Sex Assigned at Female 05/26/2019 4:02 PM WINDOW SHADE ESTIMATOR Legal Sex Female 5:12 AM WINDOW SHADE ESTIMATOR Gender Identity Female 05/26/2019 4:02 PM WINDOW SHADE ESTIMATOR Sexual Orientation Straight 05/26/2019 4: 02 PM WINDOW SHADE ESTIMATOR documented as of this encounter Plan of Treatment Upcoming Encounters Date Type Department Care Team (Late st Contact Info) Description 11/20/2024 3:00 PM CDT Virtual Visit [facility] [address] [phone] Harvey Corrales MD [address] [place] [address] 07/27/2025 3:10 PM CDT Office Visit [facility] [address] [place] [address] Kun Cueva MD [address] [place], [place] [address] documented as of this encounter Visit Diagnoses Diagnosis MICHEAL (generalized anxiety disorder) Generalized anxiety disorder Insomnia, unspecified type documented in this encounter Additional Health Concerns Assessment Noted Time PHQ-9 Depression Total Score: 14 024 9:18 AM CDT documented as of this encounter Care Teams Eligibility Specialist Relationship Specialty Start Date End Date Kun Cueva MD [address] [place] [address] PCP - General Family Medicine 11/17/20 Kun Cueva MD [address] [place] [address] Assigned PCP 11/21/20 Vonda Mendoza APRN NAIL TECHNICIAN [address] [place], [place] [address] [address] Nurse Practitioner Neurology 07/27/21 Kun Cueva MD [address] [place] [address] Referring Physician Family Medicine 07/27/21 Heena Mederos, NIDHI [address] [place] [address] J[place]CGEE [address] Assigned Neuroscience Provider 05/17/23 Albert Mix, DejaD [address] [address] Pharmacist Pharmacist 07/07/24 Albert Mix PharmD [address] [address] Assigned MTM Pharmacist 07/13/24 [place] [address] ELFEGO PURCELL, [address] [address] Assigned Musculoskeletal Provider 08/13/24 documented as of this encounter
[2024-10-19 19:58] VITALS: BP 109/75; PULSE 58; RESP 18; TEMP 36.3; O2SAT 100
== END 2024-10-19 20:07 | disposition home or self-care (01) ==
PROVIDERS: Emergency Provider Family Medicine
DX: S01.112A Laceration without foreign body of left eyelid and periocular area, initial encounter (principal); S80.212A Abrasion, left knee, initial encounter; R51.9 Headache, unspecified; D68.51 Activated protein C resistance; W18.30XA Fall on same level, unspecified, initial encounter
CPT/HCPCS: 12011; 70450; 99283; 99284